=== PATIENT | female | born 1955 | race African-American/Black ===

== ENCOUNTER 2025-01-14 12:19 | Emergency (ER) | payer MEDICARE, MEDICAID, SELFPAY ==
[2025-01-14 12:23] VITALS: BP 140/94; PULSE 54; RESP 18; TEMP 36.8; O2SAT 100
--- NOTE | 2025-01-14 12:23 | ECG_ITS ---
Test Date: 2025-01-14 12:31:09 Measurements Intervals [place] Rate: 51 P: 38 [place]: 175 QRS: -30 QRSD: 161 T: 29 QT: 427 QTc: 394 Interpretive Statements SINUS BRADYCARDIA POSSIBLE LEFT ATRIAL ENLARGEMENT RIGHT BUNDLE BRANCH BLOCK POSSIBLE LEFT VENTRICULAR HYPERTROPHY T WAVE ABNORMALITY IN ANTEROLATERAL LEADS- CONSIDER ISCHEMIA BASELINE ARTIFACT- I, II, III, AVR, AVL, AVF, V4-V6 ABNORMAL ECG No previous ECG available for comparison Electronically Signed On 01-14-2025 14:43:15 CDT by Crispin Colby D.O.
--- NOTE | 2025-01-14 12:50 | ED_ITS ---
HPI - General Adult General Chief complaint: Urogenital-Female Stated complaint: Poss UTI, dizziness, abdominal pain, frequency Time Seen by Provider: 01/14/25 12:24 History of Present Illness HPI narrative: 69-year-old female present to the emergency department for evaluation for urinary symptoms that have been ongoing for the past few weeks. Patient does have some low abdominal tenderness to palpation, patient does describe burning with urination. Patient did is a now x2 at baseline and daughter is currently present states the patient is at her current baseline has no increased confusion. Patient denies any recent falls or injuries. Patient has no associated nausea vomiting or diarrhea. At time of evaluation patient is in no distress and is well-appearing. Related Data Allergies Allergy/AdvReac Type Severity Reaction Status Date / Time No Known Allergies Allergy Verified 01/14/25 12:35 Review of Systems 2 Review of Systems: All systems reviewed & are unremarkable except as noted in HPI and below Exam 2 Narrative: APPEARANCE: Well appearing, no pain, no distress, well-nourished. HEAD: normocephalic, atraumatic. EYES: PERRLA/EOMI, conjunctivae clear. NOSE: Normal no drainage EARS:TMS clear with good light reflex. THROAT: Pharynx clear, no exudate. NECK: Supple. No adenopathy, no masses. RESPIRATORY: Airway patent, respirations nonlabored. Clear to auscultation bilaterally, no rales, rhonchi, wheezing. CARDIOVASCULAR: Regular rate and rhythm without murmurs rubs or gallops. ABDOMINAL: Soft, nontender, nondistended, normal bowel sounds MUSCULOSKELETAL: Moves all extremities. Strength/ROM intact, No edema, No calf tenderness. NEURO: Alert. Cranial nerves II through XII intact. Grossly grossly SKIN: Warm, dry. Normal Color Course Vital Signs Vital signs: Vital Signs Temperature 98.2 F 01/14/25 12:23 Pulse Rate 54 L 01/14/25 12:23 Respiratory Rate 18 01/14/25 12:23 Blood Pressure 140/94 H 01/14/25 12:23 Pulse Oximetry 100 01/14/25 12:23 Oxygen Delivery Room Air 01/14/25 12:23 Temperature 97.5 F L 01/14/25 14:50 Pulse Rate 55 L 01/14/25 14:50 Respiratory Rate 21 H 01/14/25 14:50 Blood Pressure 144/84 H 01/14/25 14:50 Pulse Oximetry 100 01/14/25 14:50 Oxygen Delivery Room Air 01/14/25 12:23 Medical Decision Making [facility] Narrative Medical decision making narrative: 69-year-old female that is A&O x2 at baseline presents emergency department for evaluation for multiple weeks of urinary symptoms. Patient is currently afebrile with no leukocytosis hemoglobin of 15.5. Patient's creatinine is 1.5 with no previous kidney function on file. Patient's urine is consistent with a urinary tract infection. Patient had leukocyte esterase positive urine with high white blood cells and +4 bacteria. Patient was treated with 1 g of IV Rocephin and started on Keflex for home. On re-evaluation patient and family were updated the results of the workup with her comfortable the plan for discharge home. Family prefers the patient be discharged home. Differential Diagnosis Differential Diagnosis: UTI, viral etiology, colitis, diverticulitis Vital Signs Vital Signs: Vital Signs Temperature 98.2 F 01/14/25 12:23 Pulse Rate 54 L 01/14/25 12:23 Respiratory Rate 18 01/14/25 12:23 Blood Pressure 140/94 H 01/14/25 12:23 Pulse Oximetry 100 01/14/25 12:23 Oxygen Delivery Room Air 01/14/25 12:23 Temperature 97.5 F L 01/14/25 14:50 Pulse Rate 55 L 01/14/25 14:50 Respiratory Rate 21 H 01/14/25 14:50 Blood Pressure 144/84 H 01/14/25 14:50 Pulse Oximetry 100 01/14/25 14:50 Oxygen Delivery Room Air 01/14/25 12:23 Lab Data Lab results reviewed: Yes I reviewed the patient's lab results. 01/14/25 12:37 01/14/25 12:37 Labs: Lab Results 01/14/25 01/14/25 Range/Units 12:37 13:41 WBC 6.1 (4.5-10.0) K/mm3 RBC 5.44 H (4.2-5.4) M/mm3 Hgb 15.5 H (12.0-15.0) g/dL Hct 48.3 H (37.0-47.0) % MCV 88.8 (80-100) fl MCH 28.5 (26-34) pg MCHC 32.1 (32-36) g/dl RDW 13.1 (11.5-14.5) % Plt Count 86 L (150-375) k/mm3 MPV 12.4 H (7.4-10.4) fl Immature Gran % (Auto) 0.3 (0-0.5) % Neut % (Auto) 69.0 (45.5-73.1) % Lymph % (Auto) 21.1 (18.3-44.2) % [place] % (Auto) 5.8 (2.6-8.5) % Eos % (Auto) 3.0 (0-4.4) % Baso % (Auto) 0.8 (0.2-1.2) % Lymph # (Auto) 1.28 (0.9-3.2) K/mm3 [place] # (Auto) 0.4 (0.1-0.6) K/mm3 Eos # (Auto) 0.2 (0-0.3) K/mm3 Baso # (Auto) 0.1 (0.0-0.1) K/mm3 Abs Immat Gran (auto) 0.02 (0.00-0.031) K/mm3 Absolute Neuts (auto) 4.2 (1.3-6.7) K/mm3 Absolute Nucleated RBC 0.000 (0.0-0.012) K/mm3 Nucleated RBC % 0.0 (0.0-0.2) % % Immature Plt Fraction 9.5 (0.9-11.2) % Sodium 139 (137-145) mmol/L Potassium 4.2 (3.4-5.0) mmol/L Chloride 109 H (98-107) mmol/L Carbon Dioxide 22 (22-30) mmol/L Anion Gap 8 (4-12) mmol/L BUN 21 H (7-17) mg/dL Creatinine 1.58 H (0.7-1.0) mg/dL Estim Creat Clear Calc 35 ml/min Estimated GFR 32 L (59 - ) Glucose 107 (65-110) mg/dL Calcium 9.7 (8.4-10.2) mg/dL Total Bilirubin 0.7 (0.2-1.3) mg/dL AST 26 (14-36) U/L ALT 21 (6-35) U/L Alkaline Phosphatase 121 (38-126) U/L Total Protein 7.3 (6.3-8.2) g/dL Albumin 4.1 (3.5-5.1) g/dL Lipase 238 (23-300) U/L Urine Color Yellow (Yellow) Urine Appearance Cloudy H (Clear) Urine pH 7.5 (5.0-9.0) Ur Specific [place] 1.014 (1.001-1.035) Urine Protein Trace (Negative) mg/dL Urine Glucose (UA) 3+ H (Negative) mg/dL Urine Ketones Negative (Negative) mg/dL Ur Blood (Man) Negative (Negative) Urine Nitrate Negative (Negative) Urine Bilirubin Negative (Negative) Urine Urobilinogen 0.2 (<2.0) mg/dL Leukocyte Esterase Rfl 3+ H (Negative) KELSIE/UL Urine RBC 0-2 (0-2) /hpf Urine WBC 51-100 H (0-3) /hpf Ur Squamous Epith Cells Few (Few) /hpf Urine Bacteria 4+ H /hpf Urine Casts 0-2 Discharge Plan Discharge Clinical Impression: Urinary tract infection Patient Disposition: Home Condition: Stable Instructions: Antibiotic Form, Urinary Tract Infection in Women (ED) Additional Instructions: Antibiotic as directed until completed. Have close follow-up with your primary care physician. If you have any worsening symptoms then please call or return to the emergency department. Patient Language: Citizen Of [place] Prescriptions: New cephalexin 500 mg capsule 500 mg PO Q8H 7 Days Qty: 21 0RF Follow-up/Referrals: PHYSICIAN NOT ON STAFF,NONSTAFF [Non-Staff] -
[2025-01-14 12:51] LABS: Hematocrit 48.3 % (37.0-47.0); Hemoglobin 15.5 g/dL (12.0-15.0); Immature Granulocyte Percent A 0.3 % (0-0.5); Immature Platelet Fraction Pct 9.5 % (0.9-11.2); Lymphocytes Absolute Auto 1.28 K/mm3 (0.9-3.2); Mean Corpuscular HGB Conc 32.1 g/dl (32-36); Mean Corpuscular Hemoglobin 28.5 pg (26-34); Mean Corpuscular Volume 88.8 fl (80-100); Nucleated Red Blood Cells Absolute Auto 0.000 K/mm3 (0.0-0.012); Nucleated Red Blood Cells Perc 0.0 % (0.0-0.2); Platelet Count Result 86 k/mm3 (150-375); Red Blood Count 5.44 M/mm3 (4.2-5.4); White Blood Count 6.1 K/mm3 (4.5-10.0)
--- OUTSIDE RECORDS SUMMARY | 2025-01-14 12:59 | XMS_ITS | Clinical Summary ---
Author Organization [facility] Address [address] [place] [address] Phone Care Team Providers Care Rubber Cutter Name Role Phone Chandler Smith DO Unavailable [phone] Pura Madsen MD Primary Care Provider [phone] Allergies No known active allergies Medications aspirin 81 mg tablet TAKE 1 TABLET BY MOUTH EVERY DAY 90 tablet 02/24/2018 Active atorvastatin (LIPITOR) 20 mg tablet TAKE 1 TABLET BY MOUTH DAILY 30 tablet 2 02/24/2018 Active amLODIPine (NORVASC) 10 mg tablet Take 1 tablet (10 mg total) by mouth daily Active carvediloL (COREG) 12.5 mg tablet Take 0.5 tablets (6.25 mg total) by mouth 2 (two) times a day 60 tablet 02/27/2024 Active OLANZapine (ZyPREXA) 2.5 mg tablet Take 1 tablet (2.5 mg total) by mouth nightly 30 tablet 02/27/2024 Active OLANZapine (ZyPREXA) 2.5 mg tablet Take 1 tablet (2.5 mg total) by mouth every 8 (eight) hours as needed (agitation) 30 tablet 02/27/2024 Active Active Problems Problem Noted Date Diagnosed Date Moderate protein-calorie malnutrition 02/24/2024 Urinary tract infection in female 02/23/2024 Encephalomyopathy 02/23/2024 Hypertensive emergency 02/23/2024 Essential hypertension 11/12/2017 Overview (11/12/2017): Uncontrolled. Pt advised to take meds daily as rx'd. Clonidine 0.1mg given in office BP now much imporvd. Non-compliance 11/12/2017 Encounters Date Type Department Care Team Description 12/14/2024 Telephone [facility] [address] [facility] [address] [place] [address] Irene Smith from Last 3 Months Medical History Medical History Date Comments Hypertension Heart palpitations Family History Medical History Relation Name Comments No Known Problems Father No Known Problems Mother Relation Name Status Comments Father Mother Social History Tobacco Use Types Packs/Day Years Used Date Smoking Tobacco: Former Smokeless Tobacco: Never Comments:quit x 30 years ago Alcohol Use Standard Drinks/Week Comments No 0 (1 standard drink = 0.6 oz pur e alcohol) [facility] Utilities Answer Date Recorded In the past 12 months has [employer], gas, oil, or water [employer] threatened to shut off services in your home? Patient unable to answer 02/25/2024 Social Connection and Isolation Panel [NHANES] A nswer Date Recorded In a typical week, how many times do you talk on the phone with family, friends, or neighbors? Patient unable to answer 02/25/2024 How often do you get togethe r with friends or relatives? Patient unable to answer 02/25/2024 How often do you attend chur ch or restoration services? Patient unable to answer 02/25/2024 Do you belong to any clubs o r organizations such as episcopal groups, unions, fraternal or athletic groups, or school groups? Patient unable to answer 02/25/2024 How often do you attend meet ings of the clubs or organizations you belong to? Patient unable to answer 02/25/2024 Are you , , di vorced, , never , or living with a partner? Patient unable to answer 02/25/2024 Overall Financial Resource Strain (CARDIA) Answe r Date Recorded How hard is it for you to pa y for the very basics like food, housing, medical care, and heating? Patient unable to answer 02/25/2024 Hunger Vital Sign Answer Date Recorded Within the past 12 months, y ou worried that your food would run out before you got the money to buy more. Patient unable to answer 02/25/2024 Within the past 12 months, t he food you bought just didn't last and you didn't have money to get more. Patient unable to answer 02/25/2024 PRAPARE - Transportation Answer Date Re corded In the past 12 months, has l ack of transportation kept you from medical appointments or from getting medications? Patient unable to answer 02/25/2024 In the past 12 months, has l ack of transportation kept you from meetings, work, or from getting things needed for daily living? Patient unable to answer 02/25/2024 Housing Stability Vital Sign Answer Julio e Recorded In the last 12 months, was t here a time when you were not able to pay the mortgage or rent on time? Patient unable to answer 02/25/2024 Number of Times Moved in the Last Year Not on fi le 02/25/2024 At any time in the past 12 m [facility], were you homeless or living in a longterm (including now)? Patient unable to answer 02/25/2024 Personal Safety Answer Date Recorded Have you ever been in or are you currently in a harmful physical or emotional relationship or is someone making you feel afraid or unsafe? Denies 02/22/2024 Comments Unknown Sex and Gender Information Value Date Recorded Sex Assigned at Not on file Legal Sex Female 9:39 AM CDT Gender Identity Not on file Sexual Orientation Not on file Obstetrics History Last Filed Vital Signs Vital Sign Reading Time Taken Comments Blood Pressure 137/82 02/27/2024 10:53 AM CDT Pulse 61 02/27/2024 10:53 AM CDT Temperature 37.2 C (99 F) 02/27/2024 10:53 AM CDT Respiratory Rate 18 02/27/2024 10:5 3 AM CDT Oxygen Saturation 100% 02/27/2024 10: 53 AM CDT Inhaled Oxygen Concentration - - Weight 71.2 kg (156 lb 15.5 oz) 02/23/2024 4:13 PM CDT Height 172.7 cm (5' 7.99) 02/23/2024 4:13 PM CD T Body Mass Index 23.87 02/23/2024 4:13 PM CDT Plan of Treatment Health Maintenance Due Date Last Done Comments Colon Cancer Screening-Colonoscopy 1955 DTaP/Tdap/Td Vaccine (1 - Tdap) 1966 Hepatitis B Screening 1973 Pneumococcal vaccine 65+ (1 of 1 - PCV) 2005 Zoster Vaccine (1 of 2) 2005 Depression Screening 11/06/2018 11/06/2017, 11/07/19 18 Well Visit 65+ 2020 Influenza Vaccine (#1) 2025 Fall Risk Assessment 02/26/2025 02/27/2024, 11/07/19 18 Breast Cancer Screening-Mammogram 09/09/2025 09/09/2024, 09/09/2024, 08/18/2024, Additional history exists Osteoporosis Screening-Bone Density Scan 08/18/2026 08/18/2024 Hepatitis C Screening Completed 11/06/2017 Procedures Procedure Name Priority Date/Time Associated Diagnosis Comments HEPATITIS C ANTIBODY Routine 11/06/2017 1:29 PM CDT Encounter for hepatitis C screening test for low risk patient from Last 3 Months or Most Recently Relevant to Health Maintenance Results * Hepatitis C antibody (11/06/2017 1:29 PM CDT) Hep C Ab Negative Negative [facility] Blood specimen (specimen) 11/06/2017 1:29 PM CDT 11/06/2017 1:29 PM CDT Narrative [facility] - 11/06/2017 2:00 PM CDT Marlyn Edgar NP LAB MICROBIOLOGY - GENERAL ORDERABLES Final Result [facility] [id number] [place] [address] from Last 3 Months or Most Recently Relevant to Health Maintenance Insurance [facility] Advance Directives For more information, please contact: [phone] * Full Code (Latest Code Status on File) Date Activated Date Inactivated Comments 02/23/2024 4:08 AM 02/28/2024 1:43 AM Care Teams Rubber Cutter Relationship Specialty Start Date End Date Pura Madsen MD [address] [place] [address] PCP - General Family Medicine 10/24/24 Chandler Smith DO Family Medicine 12/02/22
--- OUTSIDE RECORDS SUMMARY | 2025-01-14 12:59 | XMS_ITS | Clinical Summary ---
Author Organization [facility] Address [address] [place] [address] Care Team Providers Care Boardinghouse Keeper Name Role Phone Pura Madsen MD Primary Care Provider Allergies No known active allergies Medications triamcinolone (KENALOG) 0.1 % cream 07/20/19 25 Active multi vitamin/minerals (THERA-M ENHANCED) tablet Take 1 tablet by mouth daily. Active carvedilol (COREG) 12.5 MG tabletIndications: Primary hypertension Take 1 tablet (12.5 mg total) by mouth 2 (two) times daily. 180 tablet 1 08/09/19 25 Active BLOOD PRESSURE CUFF, DME,Indications:Pr imary hypertension 1 Device by Does not apply route 2 (two) times a day. 1 Device 08/09/19 25 Active dapagliflozin (FARXIGA) 10 MG tabletIndications: Stage 3b chronic kidney disease (CMS/HCC) Take 1 tablet (10 mg total) by mouth daily. 90 tablet 1 09/07/19 25 Active atorvastatin (LIPITOR) 20 MG tabletIndications: Mixed hyperlipidemia Take 1 tablet (20 mg total) by mouth daily. 90 tablet 1 10/19/19 25 Active amLODIPine (NORVASC) 10 MG tabletIndications: Primary hypertension Take 1 tablet by mouth once daily 30 tablet 01/10/20 25 Active amLODIPine (NORVASC) 10 MG tabletIndications: Primary hypertension Take 1 tablet by mouth once daily 30 tablet 11/05/19 25 025 Discontinued Active Problems Problem Noted Date Diagnosed Date Stage 3b chronic kidney disease 08/09/2024 Thrombopenia 08/09/2024 Heart failure, unspecified H F chronicity, unspecified heart failure type ([facility]) 08/09/2024 Mixed hyperlipidemia 08/09/2024 Primary hypertension 08/09/2024 Encounters Date Type Department Care Team Description 12/30/2024 10:15 AM CDT - 12/30/2024 11:59 PM CDT Hospital Encounter [facility] [place] [address] Pura Madsen MD Witte, Lauren E, MASTER PILOT Discharge Disposition: Home or Self Care (Routine Discharge) 12/30/2024 Travel 12/27/2024 Telephone [facility] [place] [address] Kimberly Senior, MASTER PILOT Called To Cancel Office Appt. 12/23/2024 10:15 AM CDT - 12/23/2024 11:59 PM CDT Hospital Encounter [facility] [place] [address] Pura Madsen MD Damron, Alexis, MASTER PILOT Discharge Disposition: Home or Self Care (Routine Discharge) 12/23/2024 Travel 12/20/2024 10:15 AM CDT - 12/20/2024 11:59 PM CDT Hospital Encounter [facility] [place] [address] Pura Madsen MD Witte, Lauren E, MASTER PILOT Discharge Disposition: Home or Self Care (Routine Discharge) 12/20/2024 Travel 12/09/2024 1:30 PM CDT - 12/09/2024 11:59 PM CDT [facility] [place] [address] Pura Madsen MD Witte, Lauren E, MASTER PILOT Discharge Disposition: Home or Self Care (Routine Discharge) 12/09/2024 Travel 12/06/2024 1:28 PM CDT - 12/06/2024 11:59 PM CDT [place] [address] Pura Madsen MD Lewis, Molly A, MASTER PILOT Discharge Disposition: Home or Self Care (Routine Discharge) 12/06/2024 Travel 12/02/2024 1:30 PM CDT - 12/02/2024 11:59 PM CDT Hospital Encounter [facility] [place] [address] Pura Madsen MD Meyer, Debra S, MASTER PILOT Discharge Disposition: Home or Self Care (Routine Discharge) 12/02/2024 Travel 12/01/2024 Scan [employer] [facility] Scanned[facility] 11/29/2024 1:30 PM CDT - 11/29/2024 11:59 PM CDT [place] [address] Pura Madsen MD Meyer, Debra S, MASTER PILOT Discharge Disposition: Home or Self Care (Routine Discharge) 11/29/2024 Travel 11/24/2024 12:45 PM CDT - 11/24/2024 11:59 PM CDT [place] [address] Pura Madsen MD Myers, Traci R, MASTER PILOT Discharge Disposition: Home or Self Care (Routine Discharge) 11/24/2024 Travel 11/22/2024 10:15 AM CDT - 11/22/2024 11:59 PM CDT [place] [address] Pura Madsen MD Lewis, Molly A, MASTER PILOT Discharge Disposition: Home or Self Care (Routine Discharge) 11/22/2024 Scan [facility] [employer] [facility] Scanned, [facility] 11/22/2024 Travel 11/18/2024 3:36 PM CDT - 11/18/2024 11:59 PM CDT Hospital Encounter [facility] [place] [place] [address] Pura Madsen MD Haas, Matthew R, PT Discharge Disposition: Home or Self Care (Routine Discharge) 11/18/2024 Travel 11/17/2024 [facility] 11/11/2024 [facility] 10/27/[address] [address] Pura Madsen MD Surgical Clearance 10/18/2024 1:20 PM CDT Office Visit [address] [address] Pura Madsen MD Surgical Clearance 10/18/2024 Travel 10/14/2024 3:44 PM CDT - 10/14/2024 11:59 PM CDT Hospital Encounter [facility] [place] [address] Pura Madsen MD Haas, Matthew R, PT Discharge Disposition: Home or Self Care (Routine Discharge) 10/14/2024 Travel from Last 3 Months Family History Medical History Relation Comments Kidney Disease Brother Stroke Brother Cancer Mother Breast Cancer Sister Cancer Sister Hypertension Sister Relation Status Comments Brother Alive Mother Sister Social History Tobacco Use Types Packs/Day Years Used Date Smoking Tobacco: Never Passive Smoke Exposure: Never Smokeless Tobacco: Never Tobacco Cessation:Counseling Given: No Alcohol Use Standard Drinks/Week Comments Not Currently 0 (1 standard drink = 0.6 oz pur e alcohol) PHQ-2 Answer Date Recorded Patient Health Questionnaire-2 Score 0 09/06/2024 Comments No Sex and Gender Information Value Date Recorded Sex Assigned at Female 06/29/2024 2:39 PM NATURAL GAS BASIS TRADER Legal Sex Female 2:34 PM NATURAL GAS BASIS TRADER Gender Identity Not on file Sexual Orientation Not on file Last Filed Vital Signs Vital Sign Reading Time Taken Comments Blood Pressure 138/88 10/18/2024 1:37 PM CDT Pulse 60 09/06/2024 1:44 PM CDT Temperature 36.6 C (97.8 F) 09/06/2024 1:44 PM CDT Respiratory Rate 16 09/06/2024 1:44 PM CDT Oxygen Saturation 97% 09/06/2024 1:44 PM CDT Inhaled Oxygen Concentration - - Weight 84.8 kg (187 lb) 09/06/2024 1:44 PM CDT Height 172.7 cm (5' 8) 09/06/2024 1:44 PM CDT Body Mass Index 28.43 09/06/2024 1:44 PM CDT Plan of Treatment Upcoming Encounters Date Type Department Care Team (Late st Contact Info) Description 03/07/2025 1:40 PM CDT Office Visit [facility] [address] [place] [address] Pura Madsen MD [address] [place] [address] Health Maintenance Due Date Last Done Comments DTaP, Tdap and Td Vaccines ( 1 - Tdap) 1974 Pneumococcal Vaccine: 50+ Years (1 of 2 - PCV) 1974 COVID-19 Vaccine (1 - 2023-2 5 season) 2025 Postponed from 02/13 (Patient Refused) RSV Immunization or 60+ Years (1 - Risk 60-74 years 1-dose series) 07/26/2025 Postponed from 07/17 (Patient Refused) Zoster Vaccines (1 of 2) 07/26/2025 Pos tponed from 2005 (Patient Refused) Mammogram Screening 09/09/2026 09/09/2024, 08/18/2024 Colorectal Cancer Screening FIT-DNA (3 Years) 2027 2024, 2024 Hepatitis C Completed 08/01/2024 Dexa Scan (General) Completed 08/18/2024 PHQ-2 (Physician [place]) Completed 10/18/2024 Meningococcal B Vaccine Aged Out No l onger eligible based on patient's age to complete this topic Meningococcal Vaccine Aged Out No wojciech darryn eligible based on patient's age to complete this topic RSV Immunizations Under 20 Months Aged Out No longer eligible b ased on patient's age to complete this topic Procedures Procedure Name Priority Date/Time Associated Diagnosis Comments MG DIAG W YAW BILAT DIGI Routine 09/09/2024 10:39 AM CDT Abnormal mammogram BONE DENSITY/DEXA Routine 08/18/2024 12: 44 PM NATURAL GAS BASIS TRADER Osteoporosis screening COLOGUARD (EXACT SCIENCE) Routine 2024 10:30 PM NATURAL GAS BASIS TRADER Colon cancer screening HEPATITIS C ANTIBODY Routine 08/01/2024 3:35 PM NATURAL GAS BASIS TRADER Encounter for hepatitis C screening test for low risk patient from Last 3 Months or Most Recently Relevant to Health Maintenance Results * MG DIAG W YAW BILAT DIGI (09/09/2024 10:39 AM CDT) Anatomical Region Laterality Modality Breast Bilateral Mammography 09/09/2024 11:5 3 AM CDT Impressions 09/09/2024 11:59 AM CDT IMPRESSION: No mammographic evidence of malignancy within either breast. Effacing island of fibroglandular tissue within the left breast. Subcentimeter intramammary lymph nodes within the right breast corresponding with reniform masses on mammography. RECOMMENDATION: Routine ScreeningBilateral Findings, impression, and recommendation were discussed with the patient and patient's sister immediately following exam completion. OVERALL IMAGING ASSESSMENT: ACR BI-RADS 2 - BENIGN FINDING(S). Ordered By: PURA MADSEN Interpreted By: Ventura Ramon, 09/09/2024 11:53 AM Narrative 09/09/2024 11:59 AM CDT [facility] [address] [place] [address] EXAMINATION: MG DIAG W YAW BILAT DIGI, US BREAST RT BIRAD LTD [id number] INDICATIONS: Abnormal mammogram TECHNIQUE: Digital full field true lateral and spot compression MLO views of the breast bilaterally and spot compression CC views of the screening mammography bilaterally to include 3-D Tomosynthesis technique. This study was read with the assistance of a computer-aided detection system. Targeted grayscale and color Doppler ultrasound imaging of the right breast HISTORY: Patient presents for diagnostic evaluation of indeterminate findings on screening mammography. No current breast complaint. Family history of breast cancer in sister at age 64. No personal history of breast cancer or prior breast biopsy. COMPARISON: Baseline mammography of 08/18/2024. TISSUE DENSITY: There are scattered areas of fibroglandular density. FINDINGS: Mammogram: Circumscribed ovoid subcentimeter masses persist at the upper outer right breast measuring approximately 6 mm anteriorly and 8 mm posteriorly. Each demonstrates a reniform morphology with subtle fat density hilar notch. MLO view asymmetry at the lower posterior left breast effaces with spot compression. No underlying persistent asymmetry, mass, architectural distortion. Few scattered typically benign round calcifications . No suspicious microcalcification within either breast. No axillary adenopathy. Sonogram: Targeted sonographic evaluation of the outer slightly upper anterior right breast demonstrates a circumscribed hypoechoic reniform 5 mm intramammary lymph node at the 9:30-10:00 axis 4.5 cm from the nipple. This demonstrates parallel orientation, subtle increased through transmission, and central pedicular vascular flow and corresponds positively with reniform mass within the anterior upper outer right breast on mammography. Targeted sonographic evaluation of the outer slightly upper posterior right breast demonstrates a circumscribed ovoid hypoechoic reniform 7 mm intramammary lymph node with parallel orientation, preserved central hilar echogenicity, and central vascular pedicle. This corresponds positively with reniform mass on mammography within the posterior right breast. No suspicious mass or abnormal shadowing within the visualized right breast. Pura Madsen MD MAMMO Final Result * BONE DENSITY/DEXA (08/18/2024 12:44 PM NATURAL GAS BASIS TRADER) Anatomical Region Laterality Modality Bone Mammography 08/18/2024 2:12 PM NATURAL GAS BASIS TRADER Impressions 08/18/2024 2:13 PM NATURAL GAS BASIS TRADER IMPRESSION: WHO Classification: Osteopenia. RECOMMENDATIONS: All patients should ensure an adequate intake of dietary calcium and vitamin D. The NOF recommend adults under the age of 50 need 1000 mg of calcium and 400-800 IU of vitamin D daily. Effective therapy for the prevention and treatment of osteoporosis include bisphosphonates. FOLLOW-UP: People with diagnosed cases of osteoporosis or at high risk for fracture should have regular bone mineral density test. For patients eligible for Medicare, routine testing is allowed once every 2 years. Testing frequency can be increased to one year for patients who have rapidly progressing disease, those who are receiving or discontinuing medical therapy to restore bone mass, or have additional risk factors. Ordered By: PURA MADSEN Interpreted By: Ventura Ramon, 08/18/2024 2:12 PM Narrative 08/18/2024 2:13 PM NATURAL GAS BASIS TRADER [facility] [address] [place] [address] EXAMINATION: BONE DENSITY/DEXA INDICATIONS: Encounter for screening for osteoporosis COMPARISON: None TECHNIQUE: DEXA bone mineral density evaluation was performed in the AP projection over the lumbar spine and both hips utilizing standard imaging techniques. FINDINGS: The BMD measured at the AP spine L1-L4 is 0.902 g/cm? with a T-score of -1.3. The BMD measured at the left femoral neck is 0.793 g/cm? with a T-score of -0.5. The BMD measured at the left hip is 0.807 g/cm? with a T-score of -1.1. The BMD measured at the right femoral neck is 0.827 g/cm? with a T-score of - 0.2. The BMD measured at the right hip is 0.840 g/cm? with a T-score of -0.8. FRAX 10-year fracture risk: Major Osteoporotic Fracture: 3.5% Hip Fracture: 0.2% Procedure Note Ventura Ramon MD - 08/18/2024 [facility] [address] [place] [address] EXAMINATION: BONE DENSITY/DEXA INDICATIONS: Encounter for screening for osteoporosis COMPARISON: None TECHNIQUE: DEXA bone mineral density evaluation was performed in the APprojection over the lumbar spine and both hips utilizing standard imagingtechniques. FINDINGS: The BMD measured at the AP spine L1-L4 is 0.902 g/cm? with a T-score of-1.3. The BMD measured at the left femoral neck is 0.793 g/cm? with a T-score of-0.5. The BMD measured at the left hip is 0.807 g/cm? with a T-score of -1.1. The BMD measured at the right femoral neck is 0.827 g/cm? with a T-scoreof -0.2. The BMD measured at the right hip is 0.840 g/cm? with a T-score of -0.8. FRAX 10-year fracture risk: Major Osteoporotic Fracture: 3.5% Hip Fracture: 0.2% IMPRESSION: WHO Classification: Osteopenia. RECOMMENDATIONS: All patients should ensure an adequate intake of dietary calcium andvitamin D. The NOF recommend adults under the age of 50 need 1000 mg ofcalcium and 400-800 IU of vitamin D daily. Effective therapy for theprevention and treatment of osteoporosis include bisphosphonates. FOLLOW-UP: People with diagnosed cases of osteoporosis or at high risk for fractureshould have regular bone mineral density test. For patients eligible forMedicare, routine testing is allowed once every 2 years. Testing frequencycan be increased to one year for patients who have rapidly progressingdisease, those who are receiving or discontinuing medical therapy torestore bone mass, or have additional risk factors. Ordered By: PURA MADSEN Interpreted By: Ventura Ramon, 08/18/2024 2:12 PM us Pura Madsen MD DEXA Final Result * JESSE ([employer]) (2024 10:30 PM NATURAL GAS BASIS TRADER) COLOGKATE RESULT Negative Negative [employer] (CLIA #:[id number]) Comment: NEGATIVE TEST RESULT. A negative Cologuard result indicates a low likelihood that a colorectal cancer (CRC) or advanced adenoma (adenomatous polyps with more advanced pre-malignant features) is present. The chance that a person with a negative Cologuard test has a colorectal cancer is less than 1 in 1500 (negative predictive value >99.9%) or has an advanced adenoma is less than 5.3% (negative predictive value 94.7%). These data are based on a prospective cross-sectional study of 10,000 individuals at average risk for colorectal cancer who were screened with both Cologuard and colonoscopy. (Dora Wilson et al, N Engl J Med 2014;370(14):4436-6581) The normal value (reference range) for this assay is negative. COLOGUARD RE-SCREENING RECOMMENDATION: Periodic colorectal cancer screening is an important part of preventive healthcare for asymptomatic individuals at average risk for colorectal cancer. Following a negative Cologuard result, the [place] Cancer Society and U.S. Multi-Society Task Force screening guidelines recommend a Cologuard re-screening interval of 3 years. References: [place] Cancer Society Guideline for Colorectal Cancer Screening: https://www.cancer.org/cancer/bnfbl-bgxrna-jvvbky/oqsbkjjio-vsivakjsx-azokecz/ac s-rec ommendations.html.; Dillon WARREN, Joseph KLEIN, Mary AcostaK, Colorectal Cancer Screening: Recommendations for Physicians and Patients from the U.S. Multi-Society Task Force on Colorectal Cancer Screening , Am J Gastroenterology 2017; 112:9289-1950. TEST DESCRIPTION: Composite algorithmic analysis of stool DNA-biomarkers with hemoglobin immunoassay. Quantitative values of individual biomarkers are not reportable and are not associated with individual biomarker result reference ranges. Cologuard is intended for colorectal cancer screening of adults of either sex, 45 years or older, who are at average-risk for colorectal cancer (CRC). Cologuard has been approved for use by the U.S. FDA. The performance of Cologuard was established in a cross sectional study of average-risk adults aged 50-84. Cologuard performance in patients ages 45 to 49 years was estimated by sub-group analysis of near-age groups. Colonoscopies performed for a positive result may find as the most clinically significant lesion: colorectal cancer [4.0%], advanced adenoma (including sessile serrated polyps greater than or equal to 1cm diameter) [20%] or non- advanced adenoma [31%]; or no colorectal neoplasia [45%]. These estimates are derived from a prospective cross-sectional screening study of 10,000 individuals at average risk for colorectal cancer who were screened with both Cologuard and colonoscopy. (Dora Ron al, N Engl J Med 2014;370(14):7604-2466.) Cologuard may produce a false negative or false positive result (no colorectal cancer or precancerous polyp present at colonoscopy follow up). A negative Cologuard test result does not guarantee the absence of CRC or advanced adenoma (pre-cancer). The current Cologuard screening interval is every 3 years. (Australian Cancer Society and U.S. Multi-Society Task Force). Cologuard performance data in a 10,000 patient pivotal study using colonoscopy as the reference method can be accessed at the following location: www.[employer]/results. Additional description of the Cologuard test process, warnings and precautions can be found at www.cologBernard Healthrd.com. STOOL STOOL SPECIMEN / Unknown 2024 10:30 PM NATURAL GAS BASIS TRADER 08/10/2024 10:03 AM NATURAL GAS BASIS TRADER Pura Madsen MD BODY FLUIDS AND STOOLS ORDERABLE S Final Result [facility] ([employer] [facility]) [address] [place] [address], [employer] (CLIA #:[id number]) [address] [place] [address] * HEPATITIS C ANTIBODY (08/01/2024 3:35 PM NATURAL GAS BASIS TRADER) HEPATITIS C AB NON-REACTI VE NON-REACTI VE 08/01/2024 5:02 PM NATURAL GAS BASIS TRADER [facility] 08/01/2024 3:35 PM NATURAL GAS BASIS TRADER us Pura Madsen MD LABORATORY Final Result [facility] [address] [place] [address], [place] [phone] from Last 3 Months or Most Recently Relevant to Health Maintenance Insurance [employer] Care Teams Boardinghouse Keeper Relationship Specialty Start Date End Date Pura Madsen MD [address] [place] [address] PCP - General FAMILY PRACTICE 07/26/24
--- OUTSIDE RECORDS SUMMARY | 2025-01-14 12:59 | XMS_ITS | Encounter Summary ---
Author Organization [facility] Address [address] [place] [address] Phone Care Team Providers Care Copper Plate Lithographer Name Role Phone Marlyn Edgar NP Primary Care Provider Chandler Smith DO Primary Care Provider Chandler Smith DO Unavailable [phone] Pura Madsen MD Primary Care Provider [phone] Encounter Details Date Type Department Care Team (Late st Contact Info) Description 11/06/2017 Orders Only [facility] ProviderKinza MD [address] [id number] Social History Tobacco Use Types Packs/Day Years Used Date Smoking Tobacco: Former Smokeless Tobacco: Never Comments:quit x 30 years ago Alcohol Use Standard Drinks/Week Comments No 0 (1 standard drink = 0.6 oz pur e alcohol) Comments Unknown Sex and Gender Information Value Date Recorded Sex Assigned at Not on file Legal Sex Female 9:39 AM CDT Gender Identity Not on file Sexual Orientation Not on file documented as of this encounter Plan of Treatment Not on file documented as of this encounter Procedures Procedure Name Priority Date/Time Associated Diagnosis Comments DISCHARGE LABORATORY CUMULATIVE REPORT 11/06/2017 12:00 AM CDT documented in this encounter Results * DISCHARGE LABORATORY CUMULATIVE REPORT (11/06/2017 12:00 AM CDT) Narrative 11/06/2017 12:00 AM CDT Ordered by an unspecified provider. us Historical Provider LAB BLOOD ORDERABLES Alva l Result documented in this encounter Visit Diagnoses Not on filedocumented in this encounter Additional Health Concerns Infection Onset Date Last Indicated Resolved Time COVID: Suspected 02/22/2024 02/22/2024 02/23/2024 12:34 AM CDT documented as of this encounter Care Teams Copper Plate Lithographer Relationship Specialty Start Date End Date Marlyn Edgar NP PCP - General Family Medicine 11/05/17 12/01/22 Chandler Smith DO PCP - General Family Medicine 12/02/22 10/23/24 Pura Madsen MD [address] [place] [address] PCP - General Family Medicine 10/24/24 Chandler Smith DO Family Medicine 12/02/22 documented as of this encounter
--- OUTSIDE RECORDS SUMMARY | 2025-01-14 12:59 | XMS_ITS | Clinical Summary ---
Author Organization [facility] Address [address], [facility] [address] [place] [address] Phone Care Team Providers Care Ordinary Seaman Name Role Phone Pura Madsen MD Primary Care Provider [phone] Simona Longoria MD Unavailable Allergies No known active allergies Medications carvedilol (COREG) 12.5 MG Tablet Take 12.5 mg by mouth. 08/09/2024 Active Dapagliflozin Propanediol (FARXIGA) 10 MG Tablet Take 10 mg by mouth daily. 08/09/2024 Active atorvastatin (LIPITOR) 20 MG Tablet Take 20 mg by mouth daily. 08/17/2024 Active amLODIPine (NORVASC) 10 MG Tablet Take 10 mg by mouth daily. 08/17/2024 Active Active Problems Problem Noted Date Diagnosed Date Hypertension Encounters Date Type Department Care Team Description 11/22/2024 1:15 PM CDT Office Visit [facility] [address] [address] Nicole Cespedes, CAPSULE FILLER, CRYSTALLOGRAPHER Thrombocytopenia (HCC) (Primary Dx); Mass of upper outer quadrant of right breast; Positive LISETH (antinuclear antibody); Elevated alkaline phosphatase level 11/22/2024 1:00 PM CDT Lab [facility] [address] [phone] Lab, Cc Angelinaairam Thrombocytopenia (HCC); Mass of upper outer quadrant of right breast 11/22/2024 Travel from Last 3 Months Family History Medical History Relation Name Comments Cancer Mother Relation Name Status Comments Mother Social History Tobacco Use Types Packs/Day Years Used Date Smoking Tobacco: Never Smokeless Tobacco: Never Tobacco Cessation:Counseling Given: Not Answered Alcohol Use Standard Drinks/Week Comments Not Currently 0 (1 standard drink = 0.6 oz pur e alcohol) Comments Unknown Sex and Gender Information Value Date Recorded Sex Assigned at Not on file 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 Gender Identity Not on file Sexual Orientation Not on file Last Filed Vital Signs Vital Sign Reading Time Taken Comments Blood Pressure 122/84 11/22/2024 1:10 PM CDT Pulse 58 11/22/2024 1:10 PM CDT Temperature 36.8 C (98.2 F) 11/22/2024 1:10 PM CDT Respiratory Rate 18 11/22/2024 1:10 PM CDT Oxygen Saturation 99% 11/22/2024 1:10 PM CDT Inhaled Oxygen Concentration - - Weight 88.5 kg (195 lb) 11/22/2024 1:10 PM CDT Height 180.3 cm (5' 11) 11/22/2024 1:10 PM CDT Body Mass Index 27.2 11/22/2024 1:10 PM CDT Plan of Treatment Upcoming Encounters Date Type Department Care Team (Late st Contact Info) Description 02/21/2025 1:00 PM CDT Lab [facility] [address] [id number] Lab, Cc [place] 02/21/2025 1:15 PM CDT Office Visit [facility] [address] [phone] Simona Longoria MD [address] [place] [address] Health Maintenance Due Date Last Done Comments TdaP Immunization 1955 Cologuard 2000 Colonoscopy 2000 Colorectal Cancer Screening 2000 Immunochemical Fecal Occult Blood 2000 Pneumococcal Immunization (50+ years) (1 of 1 - PCV) 2005 Zoster Immunization (1 of 2) 2005 Respiratory Syncytial Virus (RSV) Immunization (Adult) (1 - Risk 60-74 years 1-dose series) 2015 SARS-COV-2 Immunization ( - season) 2024 Influenza Immunization (#1) 2025 Mammogram 09/09/2025 09/09/2024, 08/14, 08/18/2024, Additional history exists DEXA Bone Density 08/18/2026 08/18/2024 Hepatitis C Virus (HCV) Screening Completed 08/01/2024 Hepatitis B Immunization Aged Out No longer eligible based on patient's age to complete this topic Human Papillomavirus (HPV) Immunization Aged Out No longer eligible based on patient's age to complete this topic Meningococcal Immunization (ACWY) Aged Out No longer eligible based on patient's age to complete this topic Rotavirus Immunization Aged Out No lo nger eligible based on patient's age to complete this topic Procedures Procedure Name Priority Date/Time Associated Diagnosis Comments CBC WITH AUTO DIFF OH Routine 11/22/2024 12:58 PM CDT CMP (COMPREHENSIVE METABOLIC PANEL) Routine 11/22/2024 12:58 PM CDT Thrombocytopenia (HCC) Mass of upper outer quadrant of right breast from Last 3 Months Results * (ABNORMAL) CBC WITH AUTO DIFF [place] (11/22/2024 12:58 PM CDT) WBC 6.7 4.0 - 10.0 10*3/uL [facility] HGB 14.6 11.2 - 15.7 g/dL [facility] HCT 45.2(H) 34.1 - 44.9 % [facility] PLT 103(L) 163 - 369 10*3/uL [facility] MPV 12.3 9.4 - 12.4 fL [facility] DOG INSTRUCTOR [facility] RBC 4.93 3.93 - 5.22 10*6/uL [facility] MCV 92 79 - 95 fL [facility]IDE DOG INSTRUCTOR [facility] MCH 29.6 25.6 - 32.2 pg [facility] GUIDE DOG INSTRUCTOR [facility] MCHC 32.3 32.2 - 36.5 g/dL [facility] DOG INSTRUCTOR [facility] RDW 13.6 11.6 - 14.4 % [facility]G INSTRUCTOR [facility] Neutrophils % 69.9(H) 36.0 - 66.0 % [facility]G INSTRUCTOR [facility] Lymphocytes % 18.9(L) 19.0 - 40.0 % [facility] DOG INSTRUCTOR [facility] Monocytes % 6.5 4.1 - 12.1 % [facility] DOG INSTRUCTOR [facility] Eosinophils % 3.5 0.0 - 3.5 % [facility]IDE DOG INSTRUCTOR [facility] Basophils % 0.9 0.0 - 1.0 % [facility] Absolute Neutrophils 4.7 1.4 - 6.6 10*3/uL [facility] Absolute Lymphocytes 1.3 0.8 - 4.0 10*3/uL [facility] Absolute Monocytes 0.4 0.2 - 1.2 10*3/uL [facility] Absolute Eosinophils 0.2 0.0 - 0.4 10*3/uL [facility] Absolute Basophils 0.1 0.0 - 0.1 10*3/uL [facility] 11/22/2024 12:5 8 PM CDT Simona Longoria MD LAB SEND OUTS Final Result [facility] GUIDE DOG INSTRUCTOR [facility] Sharif Meza [address] [phone] * (ABNORMAL) CMP (COMPREHENSIVE METABOLIC PANEL) (11/22/2024 12:58 PM CDT) Glucose 91 70 - 105 mg/dL [facility] Blood Urea Nitrogen 31(H) 7 - 25 mg/dL [facility] Creatinine 1.7(H) 0.6 - 1.2 mg/dL [facility] Sodium 141 136 - 145 mEq/L [facility] Potassium 4.4 3.5 - 5.1 mEq/L [facility] Chloride 108(H) 98 - 107 mEq/L [facility] Bicarbonate 25 21 - 31 mEq/L [facility] Total Bilirubin 0.5 0.3 - 1.0 mg/dL [facility] Alk. Phosphatase 132(H) 34 - 104 U/L [facility] Aspartate Aminotransferase 15 13 - 39 U/L [facility] Alanine Aminotransferase 19 7 - 52 U/L [facility] Total Protein 7.2 6.4 - 8.9 g/dL [facility] Albumin 4.3 3.5 - 5.7 g/dL [facility] Calcium 9.4 8.6 - 10.3 mg/dL [facility] Anion Gap 12.4 7.0 - 15.0 mEq/L [facility] Globulin 2.9 2.0 - 3.5 g/dL [facility] EGFR 32(L) >60 ml/min/1. 73m2 [facility] Comment: This eGFR is calculated using 2020 CKD-EPI Creatinine equation without race modifier based on the NKF-ASN task force recommendations Equation: vZXN=543*min(SCr/k,1)a*max(SCr/k,1)-1.200*0.9938Age*1.012 (if female), where SCr is serum creatinine, k is 0.7 for females and 0.9 for males, and a is -0.241 for females and -0.302 for males Blood 11/22/2024 12:5 8 PM CDT Narrative [facility] - 11/22/2024 2:13 PM CDT Release to patient->Immediate IS THE PATIENT REQUIRED TO BE FASTING FOR 8 HOURS?->No us Simona Longoria MD CHEMISTRY ORDERABLES Final Resul t [facility]IDE DOG INSTRUCTOR [facility] [place] [address], [place] [phone] from Last 3 Months Insurance MEDICAID [employer] Care Teams Ordinary Seaman Relationship Specialty Start Date End Date Pura Madsen MD [address] [place] [address] PCP - General Family Medicine 08/22/24 Simona Longoria MD [address] [place] [address] Consulting Physician Oncology 08/22/24
--- OUTSIDE RECORDS SUMMARY | 2025-01-14 12:59 | XMS_ITS | Referral Summary ---
Author Organization [facility] Address [address] [place] [address] Phone Care Team Providers Care Corporate Treasurer Name Role Phone Chandler Smith DO Unavailable Pura Madsen MD Primary Care Provider [phone] Encounters Date Type Department Care Team Description 12/14/2024 Telephone [facility] [address] Outpatient Health 4th Floor [address] [place] [address] Irene Smith from Last 3 Months Allergies No known active allergies Medications aspirin [...] office BP now much imporvd. Non-compliance 11/12/2017 Social History Tobacco Use Types Packs/Day Years Used Date Smoking Tobacco: Former Smokeless Tobacco: Never Comments:quit x 30 years ago Alcohol Use Standard Drinks/Week Comments No 0 (1 standard drink = 0.6 oz pur e alcohol) [facility] Utilities Answer Date Recorded In the past 12 months has e [employer], gas, oil, or water [employer] threatened to shut off services in your [...] often do you attend chur ch or muslim services? Patient unable to answer 02/25/2024 Do you belong to any clubs o r organizations such as jainism groups, unions, fraternal or athletic groups, or [...] any time in the past 12 m [facility], were you homeless or living in a senior living (including now)? Patient unable to answer 02/25/2024 [...] 02/23/2024 4:13 PM CDT Plan of Treatment Not on file Procedures Procedure Name Priority Date/Time Associated Diagnosis Comments HEPATITIS C ANTIBODY Routine 11/06/2017 1:29 PM CDT Encounter for hepatitis C screening test for low risk patient from Last 3 Months or Most Recently Relevant to Health Maintenance Results * Hepatitis C antibody (11/06/2017 1:29 PM CDT) Hep C Ab Negative Negative [facility] Blood specimen (specimen) 11/06/2017 1:29 PM CDT 11/06/2017 1:29 PM CDT Narrative [facility] - 11/06/2017 2:00 PM CDT Marlyn Edgar NP LAB MICROBIOLOGY - GENERAL ORDERABLES Final Result [facility] [id number] Department [place] [address] from Last 3 Months or Most Recently Relevant to Health Maintenance Insurance [facility] Advance Directives For more information, please contact: [phone] * Full Code (Latest Code Status on File) Date Activated Date Inactivated Comments 02/23/2024 4:08 AM 02/28/2024 1:43 AM Care Teams Corporate Treasurer Relationship Specialty Start Date End Date Pura Madsen MD [address] [place] [address] PCP - General Family Medicine 10/24/24 Chandler Smith DO Family Medicine 12/02/22
[2025-01-14 13:07] LABS: Alanine Aminotransferase 21 U/L (6-35); Albumin Level 4.1 g/dL (3.5-5.1); Alkaline Phosphatase 121 U/L (38-126); Anion Gap 8 mmol/L (4-12); Aspartate Amino Transferase 26 U/L (14-36); Bilirubin,Total 0.7 mg/dL (0.2-1.3); Blood Urea Nitrogen 21 mg/dL (7-17); Calcium 9.7 mg/dL (8.4-10.2); Carbon Dioxide 22 mmol/L (22-30); Chloride 109 mmol/L (98-107); Estimated CRCL calculation 35 ml/min; Estimated Glomerular Filt Rate 32; Glucose 107 mg/dL (65-110); Lipase 238 U/L (23-300); Potassium 4.2 mmol/L (3.4-5.0); Sodium 139 mmol/L (137-145); Total Protein 7.3 g/dL (6.3-8.2)
[2025-01-14 13:43] VITALS: BP 141/85; PULSE 50; RESP 17; O2SAT 100
[2025-01-14 13:53] LABS: Add Urine Microscopic? YES; Appearance Urine Cloudy (Clear); Glucose Urine UA 3+ mg/dL (Negative); Leukocyte Esterase Ur 3+ LEU/UL (Negative); Nitrate Urine Negative (Negative); Non Pathogenic Casts 0-2; Specific Grav Ur 1.014 (1.001-1.035)
[2025-01-14 14:21] VITALS: BP 138/86; PULSE 55; RESP 24; O2SAT 100
[2025-01-14] MEDS: cefTRIAXone 1 GM in SODIUM CHLORIDE 0.9% IV 50 ML 100 ML IVPB (14:21)
[2025-01-14 14:50] VITALS: BP 144/84; PULSE 55; RESP 21; TEMP 36.4; O2SAT 100
== END 2025-01-14 14:52 | disposition home or self-care (01) ==
PROVIDERS: Emergency Provider Emergency Medicine
DX: N39.0 Urinary tract infection, site not specified (principal); R00.1 Bradycardia, unspecified; I45.10 Unspecified right bundle-branch block; R94.31 Abnormal electrocardiogram [ECG] [EKG]
CPT/HCPCS: 36415; 80053; 81001; 83690; 85025; 85055; 87086; 93005; 96365; 99284; J0696

== ENCOUNTER 2025-01-21 14:14 | Inpatient (IN) | payer MEDICARE, MEDICAID, SELFPAY ==
[2025-01-21] VITALS (42 sets, daily range): BP systolic 139–162; BP diastolic 86–103; PULSE 47–84; RESP 11–27; TEMP 36.7–36.9; O2SAT 98–100; BMI 26.9
--- NOTE | ~2025-01-21 | US_ITS ---
EXAMINATION: US thyroid DATE: 01/24/2025 15:01 INDICATION: Right thyroid enlargement TECHNIQUE: Multiple ultrasound images of the thyroid were obtained. COMPARISON: None. FINDINGS: The right thyroid lobe measures 6.5 x 2.8 x 3.3 cm. The left thyroid lobe measures 5.7 x 2.2 x 1.9 c m. Right isthmus measures 9 mm in thickness. 4.2 cm solid wider than tall isoechoic nodule with inter nal coarse shadowing calcifications. There is a 1.5 cm nodule with coarse shadowing calcification and lobular margins along the cephalad margin of the previous noted mass. The shadowing obscures the reg ion between the calcification and the underlying larger mass. It is unclear whether this represents a a portion of the larger mass which would then be categorized as TI RADS 5 (TI-RADS 5, highly suspici ous , FNA if >=1.0 cm, annual followup is >0.5 cm) or a separate TI-RADS 5 nodule along side the larg er mass if independent masses the larger mass which would then be designated as the TI-RADS 4. Finall y there is a 1.1 cm solid hypoechoic nodule with smooth margins and without echogenic foci at the sup erior right thyroid (TI-RADS 4, moderately suspicious , FNA if >=1.5 cm, annual followup is >=1 cm). There are a also a few subcentimeter TI RADS 1 cystic nodules in both the left and right thyroid lobe s. IMPRESSION: 1. 4.2 cm TI RADS 4 versus TI RADS 5 right thyroid nodule and adjacent potentially independent 1.5 cm Ti RADS 5 nodule. Would recommend ultrasound guided biopsy of both nodules which could represent sep arate portions of the same nodule. Reviewed, dictated and finalized at location A. IMPRESSION: 1. 4.2 cm TI RADS 4 versus TI RADS 5 right thyroid nodule and adjacent potentia lly independent 1.5 cm Ti RADS 5 nodule. Would recommend ultrasound guided biop sy of both nodules which could represent separate portions of the same nodule.
--- NOTE | ~2025-01-21 | CT_ITS ---
EXAMINATION: CT abdomen pelvis w con DATE: 01/21/2025 16:59 INDICATION: Abdominal pain TECHNIQUE: Computed tomography (CT) of the abdomen and pelvis was performed with 100 mL Omnipaque-350 intravenous contrast. Automated exposure control and iterative reconstruction technique were employe d. The dose-length product was 462.21 mGy-cm. COMPARISON: None. FINDINGS: Lower thorax: Cardiomegaly. Trace right basilar atelectasis Liver: Normal. Biliary/Gallbladder: Gallbladder is normal. No bile duct dilation. Pancreas: No mass or duct dilation. Spleen: Normal. Adrenals:No mass. Kidneys: Hyperdense right upper pole lesion measuring greater than 70 Hounsfield units, likely hemorr hagic cyst. Indeterminate density 1.6 cm right midpole lesion. Bilateral renal cortical thinning and scarring. Multiple bilateral subcentimeter hypodensities, too small to characterize but most likely r epresent cysts. No obstructing calcification. No hydronephrosis. GI tract: Mild distal esophageal and gastric wall edema. No small or large bowel dilation. The append ix is mildly dilated to 7 mm, with mild wall hyperemia. Air distention of a portion of the mid append ix. No appendicolith or surrounding inflammatory change. Mesentery/Peritoneum: No ascites, mass, or free air. Retroperitoneum: No mass. Filling defect in the right external iliac vein. Low density within the sup erior portion of the inferior vena cava at the level of the renal veins and extending to the level of the hepatic veins. Pelvis: Partially distended urinary bladder with mild wall thickening. Normal uterus. Normal bilatera l ovaries. Soft Tissues: Soft tissues and body wall unremarkable. Bones: No acute osseous finding. IMPRESSION: Mild esophagitis/gastritis. Indeterminate density 1.6 cm right midpole renal lesion. Recommend timely outpatient MRI or CT withou t and with contrast for further characterization. Minimal dilation of the appendix with wall hyperemia, no inflammatory changes, these findings may be normal for this patient or represent early acute appendicitis in the appropriate clinical context. Filling defect in the right external iliac vein concerning for venous thrombosis. Low density in the superior portion of the inferior vena cava may represent a column of unenhanced venous blood or an ad ditional site of thrombosis. Mild wall thickening of the urinary bladder may represent thickening from incomplete distention or cy stitis. Reviewed, dictated and finalized at location K. IMPRESSION: Mild esophagitis/gastritis. Indeterminate density 1.6 cm right midpole renal lesion. Recommend timely outpa tient MRI or CT without and with contrast for further characterization. Minimal dilation of the appendix with wall hyperemia, no inflammatory changes, these findings may be normal for this patient or represent early acute appendic itis in the appropriate clinical context. Filling defect in the right external iliac vein concerning for venous thrombosi s. Low density in the superior portion of the inferior vena cava may represent a column of unenhanced venous blood or an additional site of thrombosis. Mild wall thickening of the urinary bladder may represent thickening from incom plete distention or cystitis.
--- NOTE | ~2025-01-21 | CT_ITS ---
EXAMINATION: CTA chest PE abdomen pel DATE: 01/21/2025 19:52 INDICATION: concern PE TECHNIQUE: Computed tomography angiography (CTA) of the chest was performed with 100 mL Omnipaque-350 intravenous contrast timed to evaluate the pulmonary arteries, followed by venous phase imaging of t he abdomen and pelvis. Coronal maximum intensity projection 3D-reconstructions were created by the te chnologist. The dose-length product (DLP) was 829.78 mGy-cm. Automated exposure control and iterative reconstruction technique were employed. COMPARISON: CT abdomen and pelvis, same date. FINDINGS: CHEST: Lung parenchyma and airways: Scattered sub-6 mm pulmonary nodules. Lungs otherwise clear. Patent airw ays. Pleura: Unremarkable. Thoracic inlet, axillae and chest wall: Masslike enlargement of the right thyroid gland with extensio n into the thoracic inlet and associated calcifications. Thoracic aorta: No significant dilation. No dissection. Mediastinum: Dilated, patulous esophagus. Dilated central pulmonary arteries. Heart and pericardium: Cardiomegaly. Apical thinning as can be seen with prior infarct. Left ventricu lar hypertrophy. Patchy enhancement/artifact in the left ventricular muscle. RV/LV ratio 1.4. No hepa tic vein reflux. Coronary artery calcifications: Absent. Thoracic bones: No acute osseous finding. Pulmonary arteries: Study quality: Adequate. Nonocclusive segmental emboli in the right upper lobe. N onocclusive embolus bridging across the origin of right middle lobe branches and extending into the i nterlobar artery. No emboli detected in the left lung. ABDOMEN/PELVIS: Liver: Normal. Biliary/Gallbladder: No bile duct dilation. Pancreas: No mass or duct dilation. Spleen: Normal. Adrenals:No mass. Kidneys: Hyperdense, likely hemorrhagic right upper pole cyst. Indeterminate density 1.6 cm right mid pole lesion. Bilateral cortical thinning and scarring. GI tract: Mild distal esophageal and gastric wall edema. No small or large bowel dilation. Persistent mild dilation and wall hyperemia and the appendix. Mesentery/Peritoneum: No ascites, mass, or free air. Retroperitoneum: No mass. Suboptimal venous enhancement and filling. The IVC is mostly flattened, wit hout filling defect. Redemonstration of an apparent filling defect in the right internal iliac vein. Pelvis: The urinary bladder is distended and contrast-filled. Pelvic organs are otherwise within norm al limits. Soft Tissues: Soft tissues and body wall unremarkable. Abdominopelvic bones: No acute osseous finding. IMPRESSION: Acute right upper lobe segmental and right middle lobe segmental and right interlobar artery emboli. Moderate clot burden. Evidence of right heart strain. Patchy enhancement versus artifact in the left ventricular muscle, artifact is favored. Correlate wit h EKG and cardiac enzymes. Masslike enlargement of the right thyroid gland, consider thyroid ultrasound for further evaluation. Scattered sub-6 mm pulmonary nodules, which require no additional evaluation unless patient is at hig h risk in which case consider an optional CT in one year. Limited CT venogram of the abdomen and pelvis. The IVC is flattened, without visualized filling defec t indicating the prior findings in the IVC were likely artifactual. Redemonstration of the right inte rnal iliac vein thrombosis. Unchanged indeterminate lesion in the right kidney. Unchanged mild dilation and wall hyperemia in the appendix. Unchanged mild esophagitis/gastritis. The bladder is now fully distended without evidence of wall thickening or inflammatory change. Results reported telephonically to Dr. Bradford by Dr. Villatoro at 8:12 PM on 01/21/2025. Reviewed, dictated and finalized at location K. IMPRESSION: Acute right upper lobe segmental and right middle lobe segmental and right inte rlobar artery emboli. Moderate clot burden. Evidence of right heart strain. Patchy enhancement versus artifact in the left ventricular muscle, artifact is favored. Correlate with EKG and cardiac enzymes. Masslike enlargement of the right thyroid gland, consider thyroid ultrasound fo r further evaluation. Scattered sub-6 mm pulmonary nodules, which require no additional evaluation un less patient is at high risk in which case consider an optional CT in one year. Limited CT venogram of the abdomen and pelvis. The IVC is flattened, without vi sualized filling defect indicating the prior findings in the IVC were likely ar tifactual. Redemonstration of the right internal iliac vein thrombosis. Unchanged indeterminate lesion in the right kidney. Unchanged mild dilation and wall hyperemia in the appendix. Unchanged mild esophagitis/gastritis. The blad elliott is now fully distended without evidence of wall thickening or inflammatory change. Results reported telephonically to Dr. Bradford by Dr. Villatoro at 8:12 PM on 01/21.
--- NOTE | ~2025-01-21 | US_ITS ---
EXAMINATION: US venous doppler LE RT DATE: 01/21/2025 18:52 INDICATION: Possible thrombus in iliac on CT . TECHNIQUE: Grayscale images without and with compression and Doppler images of the right lower extrem ity veins were obtained. COMPARISON: None FINDINGS: The right common femoral vein, profunda (deep) femoral vein, femoral vein, popliteal vein, peroneal v ein, posterior tibial veins, gastrocnemius vein, and greater saphenous vein are patent. IMPRESSION: Patent right lower extremity veins. No evidence of deep venous thrombosis. Reviewed, dictated and finalized at location K.
--- OUTSIDE RECORDS SUMMARY | 2025-01-21 14:17 | XMS_ITS | Clinical Summary ---
Author Organization [facility] Address [address] [place] [address] Phone Care Team Providers Care Content Architect Name Role Phone Chandler Smith DO Unavailable [phone] Pura Madsen MD Primary Care Provider [phone] Allergies No known active allergies Medications aspirin [...] 12/14/2024 Telephone [facility] [address] [facility] [address] [facility] 4th Floor [address] [place] [address] Irene Smith from Last 3 [...] drink = 0.6 oz pur e alcohol) [facility] Utilities Answer Date Recorded In the past 12 months has [employer], gas, oil, or water [employer] threatened to shut off services in your [...] often do you attend chur ch or church services? Patient unable to answer 02/25/2024 Do you belong to any clubs o r organizations such as catholic groups, unions, fraternal or athletic groups, or [...] any time in the past 12 m [facility], were you homeless or living in a jail (including now)? Patient unable to answer 02/25/2024 [...] MICROBIOLOGY - GENERAL ORDERABLES Final Result [facility] [id number] [address] Department [place] [address] from Last 3 Months or Most Recently Relevant to Health Maintenance Insurance [facility] Advance Directives For more information, please contact: [phone] * Full Code (Latest Code Status on File) Date Activated Date Inactivated Comments 02/23/2024 4:08 AM 02/28/2024 1:43 AM Care Teams Content Architect Relationship Specialty Start Date End Date Pura Madsen MD [address] [place] [address] PCP - General Family Medicine 10/24/24 Chandler Smith DO Family Medicine 12/02/22
--- OUTSIDE RECORDS SUMMARY | 2025-01-21 14:17 | XMS_ITS | Encounter Summary ---
Author Organization [facility] Address [address] [place] [address] Phone Care Team Providers Care Rollout Manager Name Role Phone Marlyn Edgar NP Primary Care Provider Chandler Smith DO Primary Care Provider [phone] Chandler Smith DO Unavailable [phone] Pura Madsen MD Primary Care Provider [phone] Encounter Details Date Type Department Care Team (Late st Contact Info) Description 11/06/2017 Orders Only [facility] ProviderKinza MD [address] [phone] Social History Tobacco Use Types Packs/Day Years [...] documented as of this encounter Care Teams Rollout Manager Relationship Specialty Start Date End Date Marlyn Edgar NP PCP - General Family Medicine 11/05/17 12/01/22 Chandler Smith DO PCP - General Family Medicine 12/02/22 10/23/24 Pura Madsen MD [address] [place] [address] PCP - General Family Medicine 10/24/24 Chandler Smith DO Family Medicine 12/02/22 documented as of this encounter
--- OUTSIDE RECORDS SUMMARY | 2025-01-21 14:17 | XMS_ITS | Clinical Summary ---
Author Organization [facility] Address [address], [facility] [address] [place] [address] Phone Care Team Providers Care Linux Unix System Administrator Name Role Phone Pura Madsen MD Primary Care Provider [phone] Simona Longoria MD Unavailable Allergies No known [...] CDT Office Visit [facility] [address] [phone] Nicole Cespedes, HEALTH FACILITIES SURVEYOR, CLOTH DYE RANGE OPERATOR Thrombocytopenia (HCC) (Primary Dx); Mass of upper outer quadrant of right breast; Positive LISETH (antinuclear antibody); Elevated alkaline phosphatase level 11/22/2024 1:00 PM CDT Lab [facility] [address] [phone] Lab, Cc Angelinaairam Thrombocytopenia (HCC); Mass of [...] on file 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 HGB 14.6 11.2 - 15.7 g/dL [facility] ADULT BASIC EDUCATION [facility]NA[facility] HCT 45.2(H) 34.1 - 44.9 % [facility] ADULT BASIC [facility]UCATION [facility] PLT 103(L) 163 - 369 10*3/uL [facility] MPV 12.3 9.4 - 12.4 fL [facility] EDUCATION MA[facility]GER [facility] RBC 4.93 3.93 - 5.22 10*6/uL [facility] MCV 92 79 - 95 fL [facility] EDUCATION [facility] MCH 29.6 25.6 - 32.2 pg [facility]UCATION [facility] MCHC 32.3 32.2 - 36.5 g/dL [facility] RDW 13.6 11.6 - 14.4 % [facility] Neutrophils % 69.9(H) 36.0 - 66.0 % [facility] Lymphocytes % 18.9(L) 19.0 - 40.0 % [facility] Monocytes % 6.5 4.1 - 12.1 % [facility] Eosinophils % 3.5 0.0 - 3.5 % [facility] Basophils % 0.9 0.0 - 1.0 % [facility] ADULT BASIC EDUCATION [facility] Absolute Neutrophils 4.7 1.4 - 6.6 10*3/uL [facility] Absolute Lymphocytes 1.3 0.8 - 4.0 10*3/uL [facility] ADULT BASIC EDUCATION [facility]NA[facility] Absolute Monocytes 0.4 0.2 - 1.2 10*3/uL [facility] ADULT BASIC [facility]UCATION [facility] Absolute Eosinophils 0.2 0.0 - 0.4 10*3/uL [facility] Absolute Basophils 0.1 0.0 - 0.1 10*3/uL [facility] 11/22/2024 12:5 8 PM CDT Simona Longoria MD LAB SEND OUTS Final Result [facility] BASIC EDUCATION MANAGER [facility] Sharif Meza [address] [phone] * (ABNORMAL) CMP (COMPREHENSIVE METABOLIC PANEL) (11/22/2024 12:58 PM CDT) Glucose 91 70 - 105 mg/dL [facility] Blood Urea Nitrogen 31(H) 7 - 25 mg/dL [facility] Creatinine 1.7(H) 0.6 - 1.2 mg/dL [facility] Sodium 141 136 - 145 mEq/L [facility] ADULT BASIC EDUCATION [facility] Potassium 4.4 3.5 - 5.1 mEq/L [facility] ADULT BASIC [facility]UCATION [facility] Chloride 108(H) 98 - 107 mEq/L [facility] Bicarbonate 25 21 - 31 mEq/L [facility] Total Bilirubin 0.5 0.3 - 1.0 mg/dL [facility] Alk. Phosphatase 132(H) 34 - 104 U/L [facility] Aspartate Aminotransferase 15 13 - 39 U/L [facility] Alanine Aminotransferase 19 7 - 52 U/L [facility] Total Protein 7.2 6.4 - 8.9 g/dL [facility] Albumin 4.3 3.5 - 5.7 g/dL [facility] Calcium 9.4 8.6 - 10.3 mg/dL [facility] Anion Gap 12.4 7.0 - 15.0 mEq/L [facility] Globulin 2.9 2.0 - 3.5 g/dL [facility] EGFR 32(L) >60 ml/min/1. 73m2 [facility] ADULT BASIC [facility]UCATION [facility] Comment: This eGFR is calculated using 2020 CKD-EPI Creatinine equation without race modifier based on the NKF-ASN task force recommendations Equation: xFQD=853*min(SCr/k,1)a*max(SCr/k,1)-1.200*0.9938Age*1.012 (if female), where SCr is serum creatinine, k is 0.7 for females and 0.9 for males, and a is -0.241 for females and -0.302 for males Blood 11/22/2024 12:5 8 PM CDT Narrative [facility] - 11/22/2024 2:13 PM CDT Release to patient->Immediate IS THE PATIENT REQUIRED TO BE FASTING FOR 8 HOURS?->No us Simona Longoria MD CHEMISTRY ORDERABLES Final Resul t [facility] BASIC EDUCATION MA[facility]GER [facility] [place] [address], [place] [phone] from Last 3 Months Insurance MEDICAID [employer] Care Teams Linux Unix System Administrator Relationship Specialty Start Date End Date Pura Madsen MD [address] [place] [address] PCP - General Family Medicine 08/22/24 Simona Longoria MD [address] [place] [address] Consulting Physician Oncology 08/22/24
--- OUTSIDE RECORDS SUMMARY | 2025-01-21 14:17 | XMS_ITS | Clinical Summary ---
Author Organization [facility] Address [address] [place] [address] Care Team Providers Care Rivet Catcher Name Role Phone Puar Madsen MD Primary Care Provider [phone] Allergies No known active allergies Medications triamcinolone [...] H F chronicity, unspecified heart failure type ([facility]) 08/09/2024 Mixed hyperlipidemia 08/09/2024 Primary hypertension 08/09/2024 Encounters Date Type Department Care Team Description 12/30/2024 10:15 AM CDT - 12/30/2024 11:59 PM CDT Hospital Encounter [facility] [place] [place] [address] Pura Madsen MD Witte, Lauren E, WASH DRILLER HELPER Discharge Disposition: Home or Self Care (Routine Discharge) 12/30/2024 Travel 12/27/2024 Telephone [facility] [place] [address] Kimberly Senior, WASH DRILLER HELPER Called To Cancel Office Appt. 12/23/2024 10:15 AM CDT - 12/23/2024 11:59 PM CDT Hospital Encounter [facility] [place] [address] Pura Madsen MD Damron, Alexis, WASH DRILLER HELPER Discharge Disposition: Home or Self Care (Routine Discharge) 12/23/2024 Travel 12/20/2024 10:15 AM CDT - 12/20/2024 11:59 PM CDT Hospital Encounter [facility] [address] Pura Madsen MD Witte, Lauren E, WASH DRILLER HELPER Discharge Disposition: Home or Self Care (Routine Discharge) 12/20/2024 Travel 12/09/2024 1:30 PM CDT - 12/09/2024 11:59 PM CDT [facility] [place] [address] Pura Madsen MD Witte, Lauren E, WASH DRILLER HELPER Discharge Disposition: Home or Self Care (Routine Discharge) 12/09/2024 Travel 12/06/2024 1:28 PM CDT - 12/06/2024 11:59 PM CDT [place] [address] Pura Madsen MD Lewis, Molly A, WASH DRILLER HELPER Discharge Disposition: Home or Self Care (Routine Discharge) 12/06/2024 Travel 12/02/2024 1:30 PM CDT - 12/02/2024 11:59 PM CDT Hospital Encounter [facility] [place] [address] Pura Madsen MD Meyer, Debra S, WASH DRILLER HELPER Discharge Disposition: Home or Self Care (Routine Discharge) 12/02/2024 Travel 12/01/2024 Scan [employer] SRVCS Scanned, [facility] 11/29/2024 1:30 PM CDT - 11/29/2024 11:59 PM CDT [place] [address] Pura Madsen MD Meyer, Debra S, WASH DRILLER HELPER Discharge Disposition: Home or Self Care (Routine Discharge) 11/29/2024 Travel 11/24/2024 12:45 PM CDT - 11/24/2024 11:59 PM CDT [place] [address] Pura Madsen MD Myers, Traci R, WASH DRILLER HELPER Discharge Disposition: Home or Self Care (Routine Discharge) 11/24/2024 Travel 11/22/2024 10:15 AM CDT - 11/22/2024 11:59 PM CDT [place] [address] Pura Madsen MD Lewis, Molly A, WASH DRILLER HELPER Discharge Disposition: Home or Self Care (Routine Discharge) 11/22/2024 Scan [facility] SRVCS Scanned, [facility] 11/22/2024 Travel 11/18/2024 3:36 PM CDT - 11/18/2024 11:59 PM CDT Hospital Encounter [facility] [place] [address] Pura Madsen MD Haas, Matthew R, PT Discharge Disposition: Home or Self Care (Routine Discharge) 11/18/2024 Travel 11/17/2024 Scan [facility] Scanned, [facility] 11/11/2024 Scan [facility] Scanned, [facility] 10/27/2024 Telephone [facility] Medical [facility] Family Medicine [address] [address] Pura Madsen MD Surgical Clearance from Last 3 Months Family History Medical [...] Sex Assigned at Female 06/29/2024 2:39 PM RUNNING INSTRUCTOR Legal Sex Female 2:34 PM RUNNING INSTRUCTOR Gender Identity Not on file Sexual Orientation [...] Description 03/07/2025 1:40 PM CDT Office Visit [facility] Medical Group Family Medicine [facility] [address] [place] [address] Pura Madsen MD [address] [place] [address] Health Maintenance Due Date Last Done Comments [...] Dexa Scan (General) Completed 08/18/2024 PHQ-2 (Physician [place]) Completed 10/18/2024 Meningococcal B Vaccine Aged Out [...] BONE DENSITY/DEXA Routine 08/18/2024 12: 44 PM RUNNING INSTRUCTOR Osteoporosis screening COLOGUARD (EXACT SCIENCE) Routine 2024 10:30 PM RUNNING INSTRUCTOR Colon cancer screening HEPATITIS C ANTIBODY Routine 08/01/2024 3:35 PM RUNNING INSTRUCTOR Encounter for hepatitis C screening test for low risk patient from Last 3 Months or Most Recently Relevant to Health Maintenance Results * MG MARCUS Moss YAW BILAT DIGI (09/09/2024 10:39 AM CDT) [...] 11:53 AM Narrative 09/09/2024 11:59 AM CDT [facility] [address] [place] [address] EXAMINATION: MG MARCUS TIDWELL BILAT DIGAlisha, US BREAST RT BIRAD LTD [id number] INDICATIONS: Abnormal mammogram TECHNIQUE: Digital full field [...] abnormal shadowing within the visualized right breast. us Pura Madsen MD MAMMO Final Result * BONE DENSITY/DEXA (08/18/2024 12:44 PM RUNNING INSTRUCTOR) Anatomical Region Laterality Modality Bone Mammography 08/18/2024 2:12 PM RUNNING INSTRUCTOR Impressions 08/18/2024 2:13 PM RUNNING INSTRUCTOR IMPRESSION: WHO Classification: Osteopenia. RECOMMENDATIONS: All patients [...] 08/18/2024 2:12 PM Narrative 08/18/2024 2:13 PM RUNNING INSTRUCTOR [facility] [address] [place] [address] EXAMINATION: BONE DENSITY/DEXA INDICATIONS: Encounter for screening [...] Procedure Note Ventura Ramon MD - 08/18/2024 [facility] [address] [place] [address] EXAMINATION: BONE DENSITY/DEXA INDICATIONS: Encounter for screening [...] Pura Madsen MD DEXA Final Result * COLOGUARD ([employer] SCIENCE) (2024 10:30 PM RUNNING INSTRUCTOR) COLOGUARD RESULT Negative Negative EXA [employer] (CLIA #:[id number]) Comment: NEGATIVE TEST RESULT. A negative Cologuard [...] (Dora Ron al, N Engl J Med 2014;370(14):9187-7360) The normal value (reference range) for this assay is negative. COLOGUARD RE-SCREENING RECOMMENDATION: Periodic colorectal cancer screening is an important part of preventive healthcare for asymptomatic individuals at average risk for colorectal cancer. Following a negative Cologuard result, the [place] [employer] Society and U.S. Multi-Society Task Force screening guidelines recommend a Cologuard re-screening interval of 3 years. References: [place] [employer] Guideline for Colorectal Cancer Screening: https://www.cancer.org/cancer/jdjlm-knwany-obdsia/zfagzampg-uzvbcuspm-axskmgu/ac s-rec ommendations.html.; Dillon DK, Joseph KLEIN, Mary AcostaK, Colorectal Cancer Screening: Recommendations for Physicians and Patients from the U.S. Multi-Society Task Force on Colorectal Cancer Screening , Am J Gastroenterology 2017; 112:6536-6522. TEST DESCRIPTION: Composite algorithmic analysis of stool [...] screened with both Cologuard and colonoscopy. (Dora Zheng, N Engl J Med 2014;370(14):2344-2445.) Cologuard may produce a false negative or false positive result (no colorectal cancer or precancerous polyp present at colonoscopy follow up). A negative Cologuard test result does not guarantee the absence of CRC or advanced adenoma (pre-cancer). The current Cologuard screening interval is every 3 years. ([place] [employer] Society and U.S. Multi-Society Task Force). Cologuard performance data in a 10,000 patient pivotal study using colonoscopy as the reference method can be accessed at the following location: www.[employer].com/results. Additional description of the Cologuard test process, warnings and precautions can be found at www.cologuard.com. STOOL STOOL SPECIMEN / Unknown 2024 10:30 PM RUNNING INSTRUCTOR 08/10/2024 10:03 AM RUNNING INSTRUCTOR us Pura Madsen MD BODY FLUIDS AND STOOLS ORDERABLE S Final Result Performing Organization Address City/[facility] Co de Phone Number [employer] ([email or web address] 145 LAB) [address] [email or web address] [address], [employer] (CLIA #:[id number]) [address] [email or web address] [address] * HEPATITIS C ANTIBODY (08/01/2024 3:35 PM RUNNING INSTRUCTOR) HEPATITIS C AB NON-REACTI VE NON-REACTI VE 08/01/2024 5:02 PM RUNNING INSTRUCTOR [facility] 08/01/2024 3:35 PM RUNNING INSTRUCTOR us Pura Madsen MD LABORATORY Final Result Performing Organization Address City/[facility]/ZIP Co de Phone Number [facility] [address] [place] [address], [place] [phone] from Last 3 Months or Most Recently Relevant to Health Maintenance Insurance [employer] Care Teams Rivet Catcher Relationship Specialty Start Date End Date Pura Madsen MD [address] [place] [address] PCP - General FAMILY PRACTICE 07/26/24
--- OUTSIDE RECORDS SUMMARY | 2025-01-21 15:49 | XMS_ITS | Clinical Summary ---
Author Organization [facility] Address [address] [place] [address] Phone Care Team Providers Care Grinding Supervisor Name Role Phone Chandler Smith DO Unavailable [phone] Pura Madsen MD Primary Care Provider [phone] Allergies No known active allergies Medications aspirin [...] Description 12/14/2024 Telephone [facility] [address] 4[address] [place] [address] Irene Smith from Last 3 [...] drink = 0.6 oz pur e alcohol) [facility] Utilities Answer Date Recorded In the past 12 months has [employer], gas, oil, or water [employer] threatened to shut off services in your [...] any clubs o r organizations such as confucianism groups, unions, fraternal or athletic groups, or [...] any time in the past 12 m [facility], were you homeless or living in a correction (including now)? Patient unable to answer 02/25/2024 [...] MICROBIOLOGY - GENERAL ORDERABLES Final Result [address] [address] [address] Department [place] [address] from Last 3 Months or Most Recently Relevant to Health Maintenance [place] [address] [facility] Advance Directives For more information, please contact: [phone] * Full Code (Latest Code Status on File) Date Activated Date Inactivated Comments 02/23/2024 4:08 AM 02/28/2024 1:43 AM Care Teams Grinding Supervisor Relationship Specialty Start Date End Date Pura Madsen MD [address] [place] [address] PCP - General Family Medicine 10/24/24 Chandler Smith DO Family Medicine 12/02/22
--- OUTSIDE RECORDS SUMMARY | 2025-01-21 15:49 | XMS_ITS | Encounter Summary ---
Author Organization [facility] Address [address] [place] [address] Phone Care Team Providers Care Pilot Name Role Phone Marlyn Edgar NP Primary Care Provider [phone] Chandler Smith DO Primary Care Provider [phone] Chandler Smith DO Unavailable [phone] Pura Madsen MD Primary Care Provider [phone] Encounter Details Date Type Department Care Team (Late st Contact Info) Description 11/06/2017 Orders Only [facility] ProviderKinza MD [address] [phone] Social History Tobacco Use Types Packs/Day Years [...] documented as of this encounter Care Teams Pilot Relationship Specialty Start Date End Date Marlyn Edgar NP PCP - General Family Medicine 11/05/17 12/01/22 Chandler Smith DO PCP - General Family Medicine 12/02/22 10/23/24 Pura Madsen MD [address] [place] [address] PCP - General Family Medicine 10/24/24 Chandler Smith DO Family Medicine 12/02/22 documented as of this encounter
--- OUTSIDE RECORDS SUMMARY | 2025-01-21 15:49 | XMS_ITS | Clinical Summary ---
Author Organization [facility] Address [address] [place] [address] Care Team Providers Care Global Chief Experience Officer Name Role Phone Pura Madsen MD Primary [...] H F chronicity, unspecified heart failure type ([facility]) 08/09/2024 Mixed hyperlipidemia 08/09/2024 Primary hypertension 08/09/2024 Encounters Date Type Department Care Team Description 12/30/2024 10:15 AM CDT - 12/30/2024 11:59 PM CDT Hospital [facility] [place] [address] Pura Madsen MD Witte, Lauren E, BIOPHYSICS PROFESSOR Discharge Disposition: Home or Self Care (Routine Discharge) 12/30/2024 Travel 12/27/2024 [place] [address] Kimberly Senior, BIOPHYSICS PROFESSOR Called To Cancel Office Appt. 12/23/2024 10:15 AM CDT - 12/23/2024 11:59 PM CDT Hospital Encounter [place] [address] Pura Madsen MD Damron, Alexis, BIOPHYSICS PROFESSOR Discharge Disposition: Home or Self Care (Routine Discharge) 12/23/2024 Travel 12/20/2024 10:15 AM CDT - 12/20/2024 11:59 PM CDT Hospital Encounter [facility] [place] [address] Pura Madsen MD Witte, Lauren E, BIOPHYSICS PROFESSOR Discharge Disposition: Home or Self Care (Routine Discharge) 12/20/2024 Travel 12/09/2024 1:30 PM CDT - 12/09/2024 11:59 PM CDT [facility] [place] [address] Pura Madsen MD Witte, Lauren E, BIOPHYSICS PROFESSOR Discharge Disposition: Home or Self Care (Routine Discharge) 12/09/2024 Travel 12/06/2024 1:28 PM CDT - 12/06/2024 11:59 PM [place] [address] Pura Madsen MD Lewis, Molly A, BIOPHYSICS PROFESSOR Discharge Disposition: Home or Self Care (Routine Discharge) 12/06/2024 Travel 12/02/2024 1:30 PM CDT - 12/02/2024 11:59 PM CDT Hospital [place] [address] Pura Madsen MD Meyer, Debra S, BIOPHYSICS PROFESSOR Discharge Disposition: Home or Self Care (Routine Discharge) 12/02/2024 Travel 12/01/2024 Scan [employer] SRVCS Scanned, [facility] 11/29/2024 1:30 PM CDT - 11/29/2024 11:59 PM [place] [address] Pura Madsen MD Meyer, Debra S, BIOPHYSICS PROFESSOR Discharge Disposition: Home or Self Care (Routine Discharge) 11/29/2024 Travel 11/24/2024 12:45 PM CDT - 11/24/2024 11:59 PM [place] [address] Pura Madsen MD Myers, Traci R, BIOPHYSICS PROFESSOR Discharge Disposition: Home or Self Care (Routine Discharge) 11/24/2024 Travel 11/22/2024 10:15 AM CDT - 11/22/2024 11:59 PM CD[place] [address] Pura Madsen MD Lewis, Molly A, BIOPHYSICS PROFESSOR Discharge Disposition: Home or Self Care (Routine Discharge) 11/22/2024 Scan [facility] Scanned, [facility] 11/22/2024 Travel 11/18/2024 3:36 PM CDT - 11/18/2024 11:59 PM CDT Hospital Encounter [facility] [place] [address] Pura Madsen MD Haas, Matthew R, PT Discharge Disposition: Home or Self Care (Routine Discharge) 11/18/2024 Travel 11/17/2024 Scan [facility] Scanned, [facility] 11/11/2024 Scan [facility] Scanned, [facility] 10/27/2024 Telephone [facility] Medical [facility] Family Medicine [address] [address] Pura Madsen MD Surgical Clearance [...] Sex Assigned at Female 06/29/2024 2:39 PM WOOD VENEER TAPER Legal Sex Female 2:34 PM WOOD VENEER TAPER Gender Identity Not on file Sexual Orientation [...] Description 03/07/2025 1:40 PM CDT Office Visit [facility] Medical Group Family Medicine [facility] [address] [place] [address] Pura Madsen MD [address] [place] [address] Health Maintenance Due Date Last Done Comments [...] Dexa Scan (General) Completed 08/18/2024 PHQ-2 (Physician [place]) Completed 10/18/2024 Meningococcal B Vaccine Aged Out [...] BONE DENSITY/DEXA Routine 08/18/2024 12: 44 PM WOOD VENEER TAPER Osteoporosis screening COLOGUARD (EXACT SCIENCE) Routine 2024 10:30 PM WOOD VENEER TAPER Colon cancer screening HEPATITIS C ANTIBODY Routine 08/01/2024 3:35 PM WOOD VENEER TAPER Encounter for hepatitis C screening test for [...] 11:53 AM Narrative 09/09/2024 11:59 AM CDT [facility] [address] [place] [address] EXAMINATION: MG MARCUS TIDWELL BILAT DIGAlisha, US BREAST RT BIRAD LTD [id number] INDICATIONS: Abnormal mammogram TECHNIQUE: Digital full field [...] Result * BONE DENSITY/DEXA (08/18/2024 12:44 PM WOOD VENEER TAPER) Anatomical Region Laterality Modality Bone Mammography 08/18/2024 2:12 PM WOOD VENEER TAPER Impressions 08/18/2024 2:13 PM WOOD VENEER TAPER IMPRESSION: WHO Classification: Osteopenia. RECOMMENDATIONS: All patients [...] 08/18/2024 2:12 PM Narrative 08/18/2024 2:13 PM WOOD VENEER TAPER [facility] [address] [place] [address] EXAMINATION: BONE DENSITY/DEXA INDICATIONS: Encounter for screening [...] Procedure Note Ventura Ramon MD - 08/18/2024 [facility] [address] [place] [address] EXAMINATION: BONE DENSITY/DEXA INDICATIONS: Encounter for screening [...] Madsen MD DEXA Final Result * COLOGUARD ([employer] SCIENCE) (2024 10:30 PM WOOD VENEER TAPER) COLOGUARD RESULT Negative Negative EXA [employer] (CLIA #:[id number]) Comment: NEGATIVE TEST RESULT. A negative Cologuard [...] (Dora Ron al, N Engl J Med 2014;370(14):4312-2761) The normal value (reference range) for this assay is negative. COLOGUARD RE-SCREENING RECOMMENDATION: Periodic colorectal cancer screening is an important part of preventive healthcare for asymptomatic individuals at average risk for colorectal cancer. Following a negative Cologuard result, the [place] [employer] Society and U.S. Multi-Society Task Force screening guidelines recommend a Cologuard re-screening interval of 3 years. References: [place] [employer] Guideline for Colorectal Cancer Screening: https://www.cancer.org/cancer/ikhtq-uazsvv-fqwoqx/nvbeyhxue-umkmeafwj-ismwymm/ac s-rec ommendations.html.; Dillon DK, Joseph KLEIN, Mary AcostaK, Colorectal Cancer Screening: Recommendations for Physicians and Patients from the U.S. Multi-Society Task Force on Colorectal Cancer Screening , Am J Gastroenterology 2017; 112:9387-5483. TEST DESCRIPTION: Composite algorithmic analysis of stool [...] colonoscopy. (Dora Zheng, N Engl J Med 2014;370(14):6006-8540.) Cologuard may produce a false negative or false positive result (no colorectal cancer or precancerous polyp present at colonoscopy follow up). A negative Cologuard test result does not guarantee the absence of CRC or advanced adenoma (pre-cancer). The current Cologuard screening interval is every 3 years. ([place] Cancer Society and U.S. Multi-Society Task Force). Cologuard performance data in a 10,000 patient pivotal study using colonoscopy as the reference method can be accessed at the following location: www.[employer].com/results. Additional description of the Cologuard test process, warnings and precautions can be found at www.cologuard.com. STOOL STOOL SPECIMEN / Unknown 2024 10:30 PM WOOD VENEER TAPER 08/10/2024 10:03 AM WOOD VENEER TAPER us Pura Madsen MD BODY FLUIDS AND STOOLS ORDERABLE S Final Result Performing Organization Address City/[facility] Co de Phone Number [employer] 145 LAB) [address] [place] [address], [employer] (CLIA #:[id number]) [address] [place] [address] * HEPATITIS C ANTIBODY (08/01/2024 3:35 PM WOOD VENEER TAPER) HEPATITIS C AB NON-REACTI VE NON-REACTI VE 08/01/2024 5:02 PM WOOD VENEER TAPER [facility] 08/01/2024 3:35 PM WOOD VENEER TAPER us Pura Madsen MD LABORATORY Final Result Performing Organization Address City/[facility]/ZIP Co de Phone Number [facility] [address] [place] [address], [place] [phone] from Last 3 Months or Most Recently Relevant to Health Maintenance Insurance [employer] Care Teams Global Chief Experience Officer Relationship Specialty Start Date End Date Pura Madsen MD [address] [place] [address] PCP - General FAMILY PRACTICE 07/26/24
--- OUTSIDE RECORDS SUMMARY | 2025-01-21 15:49 | XMS_ITS | Clinical Summary ---
Author Organization [facility] Address [address], [facility] [address] [place] [address] Phone Care Team Providers Care Impress Associate Name Role Phone Pura Madsen MD Primary Care Provider [phone] Simona Longoria MD Unavailable Allergies No known [...] CDT Office Visit [facility] [address] [phone] Nicole Cespedes, HVAC TECHNICIAN, HOT DIP PLATER Thrombocytopenia (HCC) (Primary Dx); Mass of upper outer quadrant of right breast; Positive LISETH (antinuclear antibody); Elevated alkaline phosphatase level 11/22/2024 1:00 PM CDT Lab [facility] [address] [phone] Lab, Cc Angelinaairam Thrombocytopenia (HCC); Mass of [...] on file Legal Sex Female 3:05 PM SENIOR MEDICAL DIRECTOR Gender Identity Not on file Sexual Orientation [...] PM CDT Lab [facility] [address] [phone] Lab, Cc [place] 02/21/2025 1:15 PM CDT Office Visit [facility] [address] [phone] Simona Longoria MD [address] [place] [id number] Health Maintenance Due Date Last Done Comments [...] WBC 6.7 4.0 - 10.0 10*3/uL [facility] HGB 14.6 11.2 - 15.7 g/dL [facility] HCT 45.2(H) 34.1 - 44.9 % [facility] PLT 103(L) 163 - 369 10*3/uL [facility] MPV 12.3 9.4 - 12.4 fL [facility]PORATE OPERATIONS COMPLIANCE MANAGER [facility] RBC 4.93 3.93 - 5.22 10*6/uL [facility] MCV 92 79 - 95 fL [facility]PORATE OPERATIONS COMPLIANCE MANAGER [facility] MCH 29.6 25.6 - 32.2 pg [facility]PORATE OPERATIONS COMPLIANCE MANAGER [facility] MCHC 32.3 32.2 - 36.5 g/dL [facility]PORATE OPERATIONS COMPLIANCE MANAGER [facility] RDW 13.6 11.6 - 14.4 % [facility]PORATE OPERATIONS COMPLIANCE MANAGER [facility] Neutrophils % 69.9(H) 36.0 - 66.0 % [facility]PORATE OPERATIONS COMPLIANCE MANAGER [facility] Lymphocytes % 18.9(L) 19.0 - 40.0 % [facility]PORATE OPERATIONS COMPLIANCE MANAGER [facility] Monocytes % 6.5 4.1 - 12.1 % [facility]PORATE OPERATIONS COMPLIANCE MANAGER [facility] Eosinophils % 3.5 0.0 - 3.5 % [facility]PORATE OPERATIONS COMPLIANCE MANAGER [facility] Basophils % 0.9 0.0 - 1.0 % [facility] Absolute Neutrophils 4.7 1.4 - 6.6 10*3/uL [facility] Absolute Lymphocytes 1.3 0.8 - 4.0 10*3/uL [facility] Absolute Monocytes 0.4 0.2 - 1.2 10*3/uL [facility] Absolute Eosinophils 0.2 0.0 - 0.4 10*3/uL [facility] Absolute Basophils 0.1 0.0 - 0.1 10*3/uL [facility] 11/22/2024 12:5 8 PM CDT Simona Longoria MD LAB SEND OUTS Final Result [facility]PORATE OPERATIONS COMPLIANCE MANAGER [facility] Sharif Meza [address] [phone] * (ABNORMAL) CMP (COMPREHENSIVE METABOLIC PANEL) (11/22/2024 12:58 PM CDT) Glucose 91 70 - 105 mg/dL [facility] Blood Urea Nitrogen 31(H) 7 - 25 mg/dL [facility] Creatinine 1.7(H) 0.6 - 1.2 mg/dL [facility] Sodium 141 136 - 145 mEq/L [facility] Potassium 4.4 3.5 - 5.1 mEq/L [facility] Chloride 108(H) 98 - 107 mEq/L [facility] Bicarbonate 25 21 - 31 mEq/L [facility] Total Bilirubin 0.5 0.3 - 1.0 mg/dL [facility] Alk. Phosphatase 132(H) 34 - 104 U/L [facility] Aspartate Aminotransferase 15 13 - 39 U/L [facility] Alanine Aminotransferase 19 7 - 52 U/L [facility] Total Protein 7.2 6.4 - 8.9 g/dL [facility] Albumin 4.3 3.5 - 5.7 g/dL [facility] Calcium 9.4 8.6 - 10.3 mg/dL [facility] Anion Gap 12.4 7.0 - 15.0 mEq/L [facility] Globulin 2.9 2.0 - 3.5 g/dL [facility] EGFR 32(L) >60 ml/min/1. 73m2 [facility] Comment: This eGFR is calculated using 2020 CKD-EPI Creatinine equation without race modifier based on the NKF-ASN task force recommendations Equation: bRVM=048*min(SCr/k,1)a*max(SCr/k,1)-1.200*0.9938Age*1.012 (if female), where SCr is serum creatinine, k is 0.7 for females and 0.9 for males, and a is -0.241 for females and -0.302 for males Blood 11/22/2024 12:5 8 PM CDT Narrative [facility] - 11/22/2024 2:13 PM CDT Release to patient->Immediate IS THE PATIENT REQUIRED TO BE FASTING FOR 8 HOURS?->No us Simona Longoria MD CHEMISTRY ORDERABLES Final Resul t [facility]PORATE OPERATIONS COMPLIANCE MANAGER [facility] [place] [address], [place] [phone] from Last 3 Months Insurance MEDICAID [place] Care Teams Impress Associate Relationship Specialty Start Date End Date Pura Madsen MD [address] [place] [address] PCP - General Family Medicine 08/22/24 Simona Longoria MD [address] [place] [address] Consulting Physician Oncology 08/22/24
[2025-01-21] MEDS: LACTATED RINGERS 1,000 ML 999 ML IV CONT ×2 (16:01→20:19)
--- NOTE | 2025-01-21 16:10 | ED_ITS ---
HPI - General Adult General Chief complaint: Weakness <Cachorro Bradford MD - Last Filed: 01/22/25 10:10> Stated complaint: UTI, ELEVATED BP,DECREASED APPETITE, DIZZINESS <Cachorro Bradford MD - Last Filed: 01/22/25 10:10> Time Seen by Provider: 01/21/25 15:32 <Cachorro Bradford MD - Last Filed: 01/22/25 10:10> History of Present Illness HPI narrative: 69-year-old female returns to the emergency department for evaluation for worsening generalized weakness. Patient was evaluated emergency department on 01/14 was diagnosed with urinary tract infection. At that time patient was treated with a g of IV Rocephin and was discharged home with p.o. Keflex. Patient is still taking the antibiotic. Family states the patient has had decreased p.o. intake and has been complaining of some lower abdominal pain. Patient denies any pain with urination but does have suprapubic tenderness to palpation. Family states the patient also has some increased confusion compared to her baseline confusion. At time of evaluation patient states she feels well enough to be discharged to home and is in no apparent distress. <Cachorro Bradford MD - Last Filed: 01/22/25 10:10> Related Data Home medications: Home Medications ?Medication ?Instructions ?Recorded ?Confirmed ?Last Taken ?Type amlodipine 10 mg tablet 10 mg PO DAILY 01/22/25 01/22/25 Unknown History atorvastatin 20 mg tablet 20 mg PO DAILY 01/22/25 01/22/25 Unknown History carvedilol 12.5 mg tablet 12.5 mg PO BID 01/22/25 01/22/25 Unknown History dapagliflozin propanediol 10 mg 10 mg PO DAILY 01/22/25 01/22/25 Unknown History tablet (Farxiga) <Cachorro Bradford MD - Last Filed: 01/22/25 10:10> Allergies/adverse reactions: Allergies Allergy/AdvReac Type Severity Reaction Status Date / Time No Known Allergies Allergy Verified 01/21/25 14:15 <Cahcorro Bradford MD - Last Filed: 01/22/25 10:10> Review of Systems 2 Review of Systems: All systems reviewed & are unremarkable except as noted in HPI and below <Cachorro Bradford MD - Last Filed: 01/22/25 10:10> [facility] Social History Social History: Social History Smoking status: Former smoker Tobacco type: cigarettes Alcohol intake: never Substance use: never Lack of Transportation: No Lack of Food: Never True Current Housing: I Have Housing Concerned About Future Housing: No Difficulty Paying Gas/Electric Bills: No Difficulty Paying for Meds: No Currently Unemployed: No Education: High School Diploma/GED Difficulty w/ Childcare or Family Care: No Spiritual care concerns: No (Roman Catholic) <Cachorro Bradford MD - Last Filed: 01/22/25 10:10> Exam 2 Narrative: APPEARANCE: Well appearing, no pain, no distress, well-nourished. HEAD: normocephalic, atraumatic. EYES: PERRLA/EOMI, conjunctivae clear. NOSE: Normal no drainage EARS:TMS clear with good light reflex. THROAT: Pharynx clear, no exudate. NECK: Supple. No adenopathy, no masses. RESPIRATORY: Airway patent, respirations nonlabored. Clear to auscultation bilaterally, no rales, rhonchi, wheezing. CARDIOVASCULAR: Regular rate and rhythm without murmurs rubs or gallops. ABDOMINAL: Left upper quadrant abdominal tenderness to palpation and suprapubic tenderness to palpation MUSCULOSKELETAL: Moves all extremities. Strength/ROM intact, No edema, No calf tenderness. NEURO: Alert. Cranial nerves II through XII intact. Grossly intact SKIN: Warm, dry. Normal Color <Cachorro Bradford MD - Last Filed: 01/22/25 10:10> Course Course Emergency Course: Patient care signed over by previous provider pending discussion with [facility] transfer system as a potential transfer to [facility]. Spoke to Dr. Workman at [facility] who declined transfer given no indications for any escalation of therapy and this would be a lateral transfer. Patient has a pulmonary embolism with suspected source being iliac vein occlusion. Patient is on anticoagulation with heparin. CT shows mild hyperemia of the appendix wall but she has no white count, no fever, tachycardia or abdominal pain. No appendicoliths or other signs such as inflammatory changes. No tenderness in this area. No signs/symptoms or clinical concern of intra-abdominal pathology in this region and thus not clinically relevant. Spoke to the hospitalist Dr. Vail who accepted the patient to the IMU at this time. <Dru Starks MD - Last Filed: 01/21/25 20:56> Vital Signs Vital signs: Vital Signs Temperature 98.4 F 01/21/25 14:24 Pulse Rate 62 01/21/25 14:24 Respiratory Rate 18 01/21/25 14:24 Blood Pressure 142/86 H 01/21/25 14:24 Pulse Oximetry 100 01/21/25 14:24 Oxygen Delivery Room Air 01/21/25 14:24 Temperature 98.3 F 01/22/25 07:36 Pulse Rate 68 01/22/25 08:30 Respiratory Rate 16 01/22/25 07:36 Blood Pressure 129/84 01/22/25 07:36 Pulse Oximetry 100 01/22/25 07:36 Oxygen Delivery Room Air 01/22/25 04:00 <Cachorro Bradford MD - Last Filed: 01/22/25 10:10> Vital Signs Temperature 98.4 F 01/21/25 14:24 Pulse Rate 62 01/21/25 14:24 Respiratory Rate 18 01/21/25 14:24 Blood Pressure 142/86 H 01/21/25 14:24 Pulse Oximetry 100 01/21/25 14:24 Oxygen Delivery Room Air 01/21/25 14:24 Temperature 98.3 F 01/22/25 07:36 Pulse Rate 68 01/22/25 08:30 Respiratory Rate 16 01/22/25 07:36 Blood Pressure 129/84 01/22/25 07:36 Pulse Oximetry 100 01/22/25 07:36 Oxygen Delivery Room Air 01/22/25 04:00 <Dru Starks MD - Last Filed: 01/21/25 20:56> Medical Decision Making [facility] Narrative Medical decision making narrative: 69-year-old female presents to the emergency department for evaluation persistent generalized weakness with concerning for worsening urinary tract infection. Patient is currently afebrile with no leukocytosis and hemoglobin of 15.3. INR is 1.0 patient did have an elevated D-dimer of 2.06. No significant abnormalities on the patient's CMP, UA was positive for leukocytes esterase and high red blood cells with no bacteria. CT was ordered and does show evidence of a thrombus which than the right internal iliac vein, original read set external iliac vein. Ultrasound was ordered shows no evidence of DVT in the leg. CTA the chest was ordered to evaluate for high clot burden. CT was also concerning for possible cystitis and for possible appendicitis. Clinically patient does not appear to have sinusitis. Patient has no chest pain no abdominal pain. CT does show evidence of moderate clot burden with right heart strain. Case was discussed with our hospitalist and they do not feel comfortable putting the patient. Family prefers to be transferred to the [facility] system. Patient was started on heparin bolus and heparin infusion. I did discuss the case with the hospitalist Roberto Carlos and the initially declined the patient. The prefer the patient be transferred to higher level of care due to evidence of right heart strain. At time of sign-out transfer to [facility] was pending. Critical Care Procedure Note Authorized and Performed by: Cachorro Bradford Total critical care time: Approximately 36 minutes Due to a high probability of clinically significant, life threatening deterioration, the patient required my highest level of preparedness to intervene emergently and I personally spent this critical care time directly and personally managing the patient. This critical care time included obtaining a history; examining the patient; pulse oximetry; ordering and review of studies; arranging urgent treatment with development of a management plan; evaluation of patient's response to treatment; frequent reassessment; and, discussions with other providers. This critical care time was performed to assess and manage the high probability of imminent, life-threatening deterioration that could result in multi-organ failure. It was exclusive of separately billable procedures and treating other patients and teaching time. Please see MDM section and the rest of the note for further information on patient assessment and treatment. <Cachorro Bradford MD - Last Filed: 01/22/25 10:10> Differential Diagnosis Differential Diagnosis: Colitis, diverticulitis, UTI, ureteral calculi, pneumonia, pneumothorax, pulmonary embolism, DVT <Cachorro Bradford MD - Last Filed: 01/22/25 10:10> Vital Signs Vital Signs: Vital Signs Temperature 98.4 F 01/21/25 14:24 Pulse Rate 62 01/21/25 14:24 Respiratory Rate 18 01/21/25 14:24 Blood Pressure 142/86 H 01/21/25 14:24 Pulse Oximetry 100 01/21/25 14:24 Oxygen Delivery Room Air 01/21/25 14:24 Temperature 98.3 F 01/22/25 07:36 Pulse Rate 68 01/22/25 08:30 Respiratory Rate 16 01/22/25 07:36 Blood Pressure 129/84 01/22/25 07:36 Pulse Oximetry 100 01/22/25 07:36 Oxygen Delivery Room Air 01/22/25 04:00 <Cachorro Bradford MD - Last Filed: 01/22/25 10:10> Vital Signs Temperature 98.4 F 01/21/25 14:24 Pulse Rate 62 01/21/25 14:24 Respiratory Rate 18 01/21/25 14:24 Blood Pressure 142/86 H 01/21/25 14:24 Pulse Oximetry 100 01/21/25 14:24 Oxygen Delivery Room Air 01/21/25 14:24 Temperature 98.3 F 01/22/25 07:36 Pulse Rate 68 01/22/25 08:30 Respiratory Rate 16 01/22/25 07:36 Blood Pressure 129/84 01/22/25 07:36 Pulse Oximetry 100 01/22/25 07:36 Oxygen Delivery Room Air 01/22/25 04:00 <Dru Starks MD - Last Filed: 01/21/25 20:56> Lab Data Result diagrams: 01/22/25 03:41 01/22/25 03:41 <Cachorro Bradford MD - Last Filed: 01/22/25 10:10> Labs: Lab Results 01/21/25 01/21/25 01/21/25 Range/Units 16:04 16:04 17:10 WBC 6.4 (4.5-10.0) K/mm3 RBC 5.32 (4.2-5.4) M/mm3 Hgb 15.3 H (12.0-15.0) g/dL Hct 47.2 H (37.0-47.0) % MCV 88.7 (80-100) fl MCH 28.8 (26-34) pg MCHC 32.4 (32-36) g/dl RDW 13.2 (11.5-14.5) % Plt Count 93 L (150-375) k/mm3 MPV 12.6 H (7.4-10.4) fl Immature Gran % (Auto) 0.3 (0-0.5) % Neut % (Auto) 68.0 (45.5-73.1) % Lymph % (Auto) 22.1 (18.3-44.2) % [place] % (Auto) 6.2 (2.6-8.5) % Eos % (Auto) 2.8 (0-4.4) % Baso % (Auto) 0.6 (0.2-1.2) % Lymph # (Auto) 1.42 (0.9-3.2) K/mm3 [place] # (Auto) 0.4 (0.1-0.6) K/mm3 Eos # (Auto) 0.2 (0-0.3) K/mm3 Baso # (Auto) 0.0 (0.0-0.1) K/mm3 Abs Immat Gran (auto) 0.02 (0.00-0.031) K/mm3 Absolute Neuts (auto) 4.4 (1.3-6.7) K/mm3 Absolute Nucleated RBC 0.000 (0.0-0.012) K/mm3 Nucleated RBC % 0.0 (0.0-0.2) % % Immature Plt Fraction 9.3 (0.9-11.2) % PT 13.2 (11.1-14.7) Seconds INR 1.0 APTT 32.2 (22.3-36.8) Seconds D-Dimer 2.06 H Cancelled (<0.48) ug/mL Sodium 137 (137-145) mmol/L Potassium 4.4 (3.4-5.0) mmol/L Chloride 105 (98-107) mmol/L Carbon Dioxide 26 (22-30) mmol/L Anion Gap 6 (4-12) mmol/L BUN 16 (7-17) mg/dL Creatinine 1.71 H (0.7-1.0) mg/dL Estim Creat Clear Calc Not Reportable Estimated GFR 30 L (59 - ) Glucose 97 (65-110) mg/dL Lactic Acid 0.8 (0.7-2.0) mmol/L Calcium 9.9 (8.4-10.2) mg/dL Total Bilirubin 0.8 (0.2-1.3) mg/dL AST 25 (14-36) U/L ALT 19 (6-35) U/L Alkaline Phosphatase 137 H (38-126) U/L Troponin I 0.012 (0.000-0.034) ng/mL C-Reactive Protein < 0.5 (<1.0) mg/dL Total Protein 8.0 (6.3-8.2) g/dL Albumin 4.4 (3.5-5.1) g/dL Lipase 219 (23-300) U/L Urine Color Yellow (Yellow) Urine Appearance Clear (Clear) Urine pH 7.0 (5.0-9.0) Ur Specific Boss 1.012 (1.001-1.035) Urine Protein Trace (Negative) mg/dL Urine Glucose (UA) 2+ H (Negative) mg/dL Urine Ketones Negative (Negative) mg/dL Ur Blood (Man) Negative (Negative) Urine Nitrate Negative (Negative) Urine Bilirubin Negative (Negative) Urine Urobilinogen 0.2 (<2.0) mg/dL Leukocyte Esterase Rfl 1+ H (Negative) KELSIE/UL Urine RBC 11-20 H (0-2) /hpf Urine WBC 0-5 (0-3) /hpf Ur Squamous Epith Cells None seen (Few) /hpf Urine Bacteria None seen /hpf Urine Casts 0-2 Urine Yeast (Budding) Present H (None) /hpf <Cachorro Bradford MD - Last Filed: 01/22/25 10:10> Lab Results 01/21/25 01/21/25 01/21/25 Range/Units 16:04 16:04 17:10 WBC 6.4 (4.5-10.0) K/mm3 RBC 5.32 (4.2-5.4) M/mm3 Hgb 15.3 H (12.0-15.0) g/dL Hct 47.2 H (37.0-47.0) % MCV 88.7 (80-100) fl MCH 28.8 (26-34) pg MCHC 32.4 (32-36) g/dl RDW 13.2 (11.5-14.5) % Plt Count 93 L (150-375) k/mm3 MPV 12.6 H (7.4-10.4) fl Immature Gran % (Auto) 0.3 (0-0.5) % Neut % (Auto) 68.0 (45.5-73.1) % Lymph % (Auto) 22.1 (18.3-44.2) % [place] % (Auto) 6.2 (2.6-8.5) % Eos % (Auto) 2.8 (0-4.4) % Baso % (Auto) 0.6 (0.2-1.2) % Lymph # (Auto) 1.42 (0.9-3.2) K/mm3 [place] # (Auto) 0.4 (0.1-0.6) K/mm3 Eos # (Auto) 0.2 (0-0.3) K/mm3 Baso # (Auto) 0.0 (0.0-0.1) K/mm3 Abs Immat Gran (auto) 0.02 (0.00-0.031) K/mm3 Absolute Neuts (auto) 4.4 (1.3-6.7) K/mm3 Absolute Nucleated RBC 0.000 (0.0-0.012) K/mm3 Nucleated RBC % 0.0 (0.0-0.2) % % Immature Plt Fraction 9.3 (0.9-11.2) % PT 13.2 (11.1-14.7) Seconds INR 1.0 APTT 32.2 (22.3-36.8) Seconds D-Dimer 2.06 H Cancelled (<0.48) ug/mL Sodium 137 (137-145) mmol/L Potassium 4.4 (3.4-5.0) mmol/L Chloride 105 (98-107) mmol/L Carbon Dioxide 26 (22-30) mmol/L Anion Gap 6 (4-12) mmol/L BUN 16 (7-17) mg/dL Creatinine 1.71 H (0.7-1.0) mg/dL Estim Creat Clear Calc Not Reportable Estimated GFR 30 L (59 - ) Glucose 97 (65-110) mg/dL Lactic Acid 0.8 (0.7-2.0) mmol/L Calcium 9.9 (8.4-10.2) mg/dL Total Bilirubin 0.8 (0.2-1.3) mg/dL AST 25 (14-36) U/L ALT 19 (6-35) U/L Alkaline Phosphatase 137 H (38-126) U/L Troponin I 0.012 (0.000-0.034) ng/mL C-Reactive Protein < 0.5 (<1.0) mg/dL Total Protein 8.0 (6.3-8.2) g/dL Albumin 4.4 (3.5-5.1) g/dL Lipase 219 (23-300) U/L Urine Color Yellow (Yellow) Urine Appearance Clear (Clear) Urine pH 7.0 (5.0-9.0) Ur Specific Boss 1.012 (1.001-1.035) Urine Protein Trace (Negative) mg/dL Urine Glucose (UA) 2+ H (Negative) mg/dL Urine Ketones Negative (Negative) mg/dL Ur Blood (Man) Negative (Negative) Urine Nitrate Negative (Negative) Urine Bilirubin Negative (Negative) Urine Urobilinogen 0.2 (<2.0) mg/dL Leukocyte Esterase Rfl 1+ H (Negative) KELSIE/UL Urine RBC 11-20 H (0-2) /hpf Urine WBC 0-5 (0-3) /hpf Ur Squamous Epith Cells None seen (Few) /hpf Urine Bacteria None seen /hpf Urine Casts 0-2 Urine Yeast (Budding) Present H (None) /hpf <Dru Starks MD - Last Filed: 01/21/25 20:56> Critical Care Time Critical Care Time Critical Care Time: Yes <Cachorro Bradford MD - Last Filed: 01/22/25 10:10> Total Critical Care Time: 36 <Cachorro Bradford MD - Last Filed: 01/22/25 10:10> Discharge Plan Discharge Clinical Impression: Pulmonary embolism, Iliac vein thrombosis, right <Cachorro Bradford MD - Last Filed: 01/22/25 10:10> Patient Disposition: Acute Care Hospital <Cachorro Bradford MD - Last Filed: 01/22/25 10:10> Condition: Serious <Cachorro Bradford MD - Last Filed: 01/22/25 10:10> Time of Disposition: 20:56 <Cachorro Bradford MD - Last Filed: 01/22/25 10:10> 20:56 <Dru Starks MD - Last Filed: 01/21/25 20:56>
[2025-01-21 16:18] LABS: Hematocrit 47.2 % (37.0-47.0); Hemoglobin 15.3 g/dL (12.0-15.0); Immature Granulocyte Percent A 0.3 % (0-0.5); Immature Platelet Fraction Pct 9.3 % (0.9-11.2); Lymphocytes Absolute Auto 1.42 K/mm3 (0.9-3.2); Mean Corpuscular HGB Conc 32.4 g/dl (32-36); Mean Corpuscular Hemoglobin 28.8 pg (26-34); Mean Corpuscular Volume 88.7 fl (80-100); Nucleated Red Blood Cells Absolute Auto 0.000 K/mm3 (0.0-0.012); Nucleated Red Blood Cells Perc 0.0 % (0.0-0.2); Platelet Count Result 93 k/mm3 (150-375); Red Blood Count 5.32 M/mm3 (4.2-5.4); White Blood Count 6.4 K/mm3 (4.5-10.0)
[2025-01-21 16:22] LABS: Alanine Aminotransferase 19 U/L (6-35); Albumin Level 4.4 g/dL (3.5-5.1); Alkaline Phosphatase 137 U/L (38-126); Anion Gap 6 mmol/L (4-12); Aspartate Amino Transferase 25 U/L (14-36); Bilirubin,Total 0.8 mg/dL (0.2-1.3); Blood Urea Nitrogen 16 mg/dL (7-17); Calcium 9.9 mg/dL (8.4-10.2); Carbon Dioxide 26 mmol/L (22-30); Chloride 105 mmol/L (98-107); Estimated Glomerular Filt Rate 30; Glucose 97 mg/dL (65-110); Lipase 219 U/L (23-300); Potassium 4.4 mmol/L (3.4-5.0); Sodium 137 mmol/L (137-145); Total Protein 8.0 g/dL (6.3-8.2)
[2025-01-21 16:30] LABS: INR 1.0; Prothrombin Time 13.2 Seconds (11.1-14.7)
[2025-01-21 16:32] LABS: Partial Thromboplastin Time 32.2 Seconds (22.3-36.8)
[2025-01-21 16:41] LABS: CRP < 0.5 mg/dL (<1.0)
[2025-01-21 17:37] LABS: Add Urine Microscopic? YES; Appearance Urine Clear (Clear); Budding Yeast Urine Present /hpf; Glucose Urine UA 2+ mg/dL (Negative); Leukocyte Esterase Ur 1+ LEU/UL (Negative); Nitrate Urine Negative (Negative); Non Pathogenic Casts 0-2; Specific Grav Ur 1.012 (1.001-1.035)
--- NOTE | 2025-01-21 20:15 | ECG_ITS ---
Test Date: 2025-01-21 20:36:25 Measurements Intervals [place] Rate: 61 P: 56 MT: 192 QRS: -42 QRSD: 146 T: 34 QT: 437 QTc: 443 Interpretive Statements SINUS RHYTHM POSSIBLE LEFT ATRIAL ENLARGEMENT RIGHT BUNDLE BRANCH BLOCK LEFT VENTRICULAR HYPERTROPHY INFERIOR INFARCT, AGE INDETERMINATE BASELINE ARTIFACT- I, II, AVR, V1 ABNORMAL ECG Compared to ECG 01/14/2025 12:31:09 HEART RATE HAS INCREASED POSSIBLE ISCHEMIA NO LONGER PRESENT Electronically Signed On 01-22-2025 08:02:26 CDT by Crispin Colby D.O.
[2025-01-21 20:44] LABS: Troponin I 0.012 ng/mL (0.000-0.034)
[2025-01-21] MEDS: HEPARIN SOD/D5W 100 UNITS/ML 25,000 UNITS/250 ML BAG 13 UNITS IV CONT (20:56)
--- NOTE | 2025-01-21 21:22 | PM.IMHP ---
H&P: HPI History of Present Illness Date/Time: 01/21/25 21:22 Chief Complaint: Pulmonary embolism and right internal iliac vein thrombosis Narrative: 69-year-old female with no significant past medical history presented to the ED due to a weak patient who was previously in the emergency department and was diagnosed with UTI on 0 2. Patient was discharged with cephalexin 500 mg p.o. b.i.d. for 7 days. Upon discharge from the ED, the family member reported the patient had not recovered and was still feeling weak. Today, an abdominal/pelvis CT was performed, which shows the right external iliac vein concerning venous thrombosis. The patient underwent chest/abdomen/pelvis CTA, which shows pulmonary embolism with possible right heart strain and redemonstration of right internal iliac vein thrombosis. Initially, I recommended that the patient be transferred for pulmonary embolism with possible right heart strain. The ED physician called [facility], but the transfer was declined. Patient will be admitted in the setting of pulmonary embolism and internal iliac vein thrombosis. Patient is currently on Eliquis. Hematology/oncology will be consulted. Patient H&H will be monitored. Echocardiogram will be performed in the a.m., along with thyroid ultrasound. During the evaluation patient daughter was present. She reports the patient use walker for ambulation. Patient was briefly in the [facility] from February 2024 to August 2024. After the discharge from the [facility] patient was followed by vocational rehab consultant/oncologist for thrombocytopenia but no obvious cause was found. Review of Systems Review of Systems: All systems reviewed & are unremarkable except as noted in HPI and below PMFSH Social History Social History Smoking status: Former smoker Tobacco type: cigarettes Alcohol intake: never Substance use: never Lack of Transportation: No Lack of Food: Never True Current Housing: I Have Housing Concerned About Future Housing: No Difficulty Paying Gas/Electric Bills: No Difficulty Paying for Meds: No Currently Unemployed: No Education: High School Diploma/GED Difficulty w/ Childcare or Family Care: No Spiritual care concerns: No (Buddhism) Meds Home Medications and Allergies Home Medications ?Medication ?Instructions ?Recorded ?Confirmed ?Type amlodipine 10 mg tablet 10 mg PO DAILY 01/22/25 01/22/25 History atorvastatin 20 mg tablet 20 mg PO DAILY 01/22/25 01/22/25 History carvedilol 12.5 mg tablet 12.5 mg PO BID 01/22/25 01/22/25 History dapagliflozin propanediol 10 mg 10 mg PO DAILY 01/22/25 01/22/25 History tablet (Farxiga) Allergies Allergy/AdvReac Type Severity Reaction Status Date / Time No Known Allergies Allergy Verified 01/21/25 14:15 Vital Signs Vital Signs - 24 hr 01/21/25 14:24 Temperature 98.4 F Pulse Rate 62 Respiratory Rate 18 Blood Pressure 142/86 H Pulse Oximetry 100 Oxygen Delivery Room Air Exam Narrative: APPEARANCE: Well appearing, no pain, no distress, well-nourished. HEAD: normocephalic, atraumatic. EYES: PERRLA/EOMI, conjunctivae clear. NOSE: Normal no drainage EARS:TMS clear with good light reflex. THROAT: Pharynx clear, no exudate. NECK: Supple. No adenopathy, no masses. RESPIRATORY: Airway patent, respirations nonlabored. Clear to auscultation bilaterally, no rales, rhonchi, wheezing. CARDIOVASCULAR: Regular rate and rhythm without murmurs rubs or gallops. ABDOMINAL: Left upper quadrant abdominal tenderness to palpation and suprapubic tenderness to palpation MUSCULOSKELETAL: Moves all extremities. Strength/ROM intact, No edema, No calf tenderness. NEURO: Alert. Cranial nerves II through XII intact. Grossly intact SKIN: Warm, dry. Normal Color H&P: Results Labs Labs: Short CBC 01/21/25 Range/Units 16:04 WBC 6.4 (4.5-10.0) K/mm3 Hgb 15.3 H (12.0-15.0) g/dL Hct 47.2 H (37.0-47.0) % Plt Count 93 L (150-375) k/mm3 [facility] 01/21/25 16:04 Sodium 137 Potassium 4.4 Chloride 105 Carbon Dioxide 26 BUN 16 Creatinine 1.71 H Glucose 97 Calcium 9.9 Cardiac Enzymes 01/21/25 Range/Units 16:04 Troponin I 0.012 (0.000-0.034) ng/mL Liver Function 01/21/25 Range/Units 16:04 Total Bilirubin 0.8 (0.2-1.3) mg/dL AST 25 (14-36) U/L ALT 19 (6-35) U/L Alkaline Phosphatase 137 H (38-126) U/L Albumin 4.4 (3.5-5.1) g/dL Urine 01/21/25 Range/Units 17:10 Urine Color Yellow (Yellow) Urine Appearance Clear (Clear) Urine pH 7.0 (5.0-9.0) Ur Specific [place] 1.012 (1.001-1.035) Urine Protein Trace (Negative) mg/dL Urine Glucose (UA) 2+ H (Negative) mg/dL Assessment and Plan Assessment and plan (1) Pulmonary embolism: Code(s): I26.99 - Other pulmonary embolism without acute cor pulmonale Status: Acute Assessment and Plan: -Chest CTA shows Acute right upper lobe segmental and right middle lobe segmental and right interlobar artery emboli. Moderate clot burden. Evidence of right heart strain. -currently on heparin -monitor platelet -monitor H&H -order echo a.m. to rule out right heart strain -consulted hematology/oncology (2) Iliac vein thrombosis, right: Code(s): I82.421 - Acute embolism and thrombosis of right iliac vein Status: Acute Assessment and Plan: Same as above (3) Enlarged thyroid gland: Code(s): E04.9 - Nontoxic goiter, unspecified Status: Acute Assessment and Plan: CT shows right thyroid and rhythm Ultrasound thyroid pending Order TSH, free T3-4 (4) HTN (hypertension): Code(s): I10 - Essential (primary) hypertension Status: Acute Assessment and Plan: Continue carvedilol 12.5 mg p.o. b.i.d. Continue amlodipine 10 mg p.o. q.d. Plan Code status: Full code DVT prophylaxis: Heparin Order HbA1c Hospitalist MIPS Advance Care Plan I have confirmed that the patient's Advanced Care Plan is present, code status is documented, or surrogate decision maker is listed in patient medical record.: Yes Medication Reconciliation I have utilized all available resources to obtain, update and review the patients current medications (includes all prescriptions, OTC, herbals, cannabis, and nutritional supplements).: Yes
[2025-01-22] VITALS (18 sets, daily range): BP systolic 108–132; BP diastolic 66–84; PULSE 50–80; RESP 15–28; TEMP 36.7–36.9; O2SAT 94–100; BMI 26.9
--- NOTE | 2025-01-22 00:20 | ADMGEN ---
This patient, Fabby Black, was admitted to IMU Room 205-01. Patient/family oriented to hospital policies and general routines including ID bracelet, bed and alarms, visiting hours, pain management, procedures, bathroom and other care routines, personal items, smoking policy, room service/diet, and visiting hours. Information on how to activate the Rapid Response Team has been discussed. Patient/Family are encouraged to report perceived risks to care and to ask questions if they do not understand what they are told or what they should do.
[2025-01-22 03:51] LABS: Hematocrit 43.5 % (37.0-47.0); Hemoglobin 14.2 g/dL (12.0-15.0); Immature Granulocyte Percent A 0.3 % (0-0.5); Lymphocytes Absolute Auto 1.54 K/mm3 (0.9-3.2); Mean Corpuscular HGB Conc 32.6 g/dl (32-36); Mean Corpuscular Hemoglobin 29.0 pg (26-34); Mean Corpuscular Volume 88.8 fl (80-100); Nucleated Red Blood Cells Absolute Auto 0.000 K/mm3 (0.0-0.012); Nucleated Red Blood Cells Perc 0.0 % (0.0-0.2); Platelet Count Result 103 k/mm3 (150-375); Red Blood Count 4.90 M/mm3 (4.2-5.4); White Blood Count 7.7 K/mm3 (4.5-10.0)
[2025-01-22 04:07] LABS: Alanine Aminotransferase 18 U/L (6-35); Albumin Level 3.6 g/dL (3.5-5.1); Alkaline Phosphatase 101 U/L (38-126); Anion Gap 7 mmol/L (4-12); Aspartate Amino Transferase 22 U/L (14-36); Bilirubin,Total 0.5 mg/dL (0.2-1.3); Blood Urea Nitrogen 18 mg/dL (7-17); Calcium 9.3 mg/dL (8.4-10.2); Carbon Dioxide 24 mmol/L (22-30); Chloride 108 mmol/L (98-107); Estimated CRCL calculation 33 ml/min; Estimated Glomerular Filt Rate 35; Glucose 160 mg/dL (65-110); Potassium 3.6 mmol/L (3.4-5.0); Sodium 139 mmol/L (137-145); Total Protein 6.6 g/dL (6.3-8.2)
[2025-01-22 04:35] LABS: Thyroid Stimulating Hormone Reflex 0.906 uIU/mL (0.465-4.68)
[2025-01-22 05:01] LABS: Hemoglobin A1C 5.5 % (<5.7)
[2025-01-22 06:06] LABS: Partial Thromboplastin Time > 200.0 Seconds (22.3-36.8)
--- NOTE | 2025-01-22 07:23 | P.PNIM_ITS ---
Progress Note: A&P Assessment and Plan (1) Pulmonary embolism: Code(s): I26.99 - Other pulmonary embolism without acute cor pulmonale Status: Acute Assessment and Plan: -Chest CTA shows Acute right upper lobe segmental and right middle lobe segmental and right interlobar artery emboli. Moderate clot burden. Original report reported evidence of right heart strain, but upon discussion with on-call radiologist this should read NO evidence of right heart strain. - troponin trend negative. BNP minimally elevated. - patient is asymptomatic with no chest pain or shortness of breath. -currently on heparin. Plan to transition to Eliquis. -monitor platelet -monitor H&H - cardio consulted, no current plans for intervention. Echo pending. -consulted hematology/oncology. (2) Iliac vein thrombosis, right: Code(s): I82.421 - Acute embolism and thrombosis of right iliac vein Status: Acute Assessment and Plan: - as seen on CTA - continue heparin drip as above (3) DARIN (acute kidney injury): Code(s): N17.9 - Acute kidney failure, unspecified Status: Acute Assessment and Plan: - Cr 1.7 on admission. Received IV fluids. Trended down to 1.4 this AM. - may have CKD? - monitor BMP - avoid nephrotoxins (4) Enlarged thyroid gland: Code(s): E04.9 - Nontoxic goiter, unspecified Status: Acute Assessment and Plan: -CT shows right thyroid mass -Ultrasound thyroid pending -TSH WNL (5) HTN (hypertension): Code(s): I10 - Essential (primary) hypertension Status: Acute Assessment and Plan: -Continue carvedilol 12.5 mg p.o. b.i.d. -Continue amlodipine 10 mg p.o. q.d. (6) Renal lesion: Code(s): N28.9 - Disorder of kidney and ureter, unspecified Status: Acute Assessment and Plan: - CT A/P on admission showed indeterminate lesion in the midpole of the right kidney - recommend outpatient MRI for further characterization (7) Thrombocytopenia: Code(s): D69.6 - Thrombocytopenia, unspecified Status: Acute Assessment and Plan: -Plts 103, improved from admission - monitor CBC (8) Urinary tract infection: Code(s): N39.0 - Urinary tract infection, site not specified Status: Inactive Assessment and Plan: - UA 1+ LE, 11-20 RBCs - recently diagnosed UTI 01/14. Urine culture with E coli sensitive to cephalosporins. Patient has 3 days of treatment left per daughter, will order. (9) Generalized weakness: Code(s): R53.1 - Weakness Status: Acute Assessment and Plan: - PT/OT consulted - daughter interested in SNF if patient qualifies (10) Dementia: Code(s): F03.90 - Unspecified dementia, unspecified severity, without behavioral disturbance, psychotic disturbance, mood disturbance, and anxiety Status: Acute Assessment and Plan: - has appointment with neurology next month - daughter states patient's memory is getting progressively worse - delirium precautions Plan Code status: Full code DVT prophylaxis: Heparin Subjective Date/time seen: 01/22/25 07:23 Interval history: 69-year-old female with no significant past medical history presented to the ED due to weakness, who was previously in the emergency department and was diagnosed with UTI on 01/14/25. Patient seen and examined at bedside. Patient very pleasant, feeling well this AM. Had some suprapubic pressure that has resolved. Denied chest pain or sh ortness of breath. Denied leg pain. Discussed plan of care with patient's daughter over the phone who expressed concerns about patient's worsening cognitive impairment and weakness. Review of Systems Review of Systems: All systems reviewed & are unremarkable except as noted in HPI and below Exam Narrative: General: NAD Eyes: EOMI ENT: neck supple Cardiovascular: Regular rate and rhythm Respiratory: Clear to auscultation, respirations even and unlabored on RA Gastrointestinal: Soft, non tender Genitourinary: no suprapubic tenderness Musculoskeletal: No edema. Strength 5/5 in BLEs. Skin: warm, dry Neuro: Alert. Psych: Mood appropriate Objective Data Vital Signs Vital Signs: Vital Signs - 24 hr 01/21/25 14:24 01/21/25 15:35 01/21/25 15:36 Temperature 98.4 F Pulse Rate 62 55 L 55 L Respiratory Rate 18 14 17 Blood Pressure 142/86 H 139/93 H Pulse Oximetry 100 99 100 Oxygen Delivery Room Air 01/21/25 15:45 01/21/25 16:00 01/21/25 16:15 Temperature Pulse Rate 47 L 59 L 56 L Respiratory Rate 11 L 13 14 Blood Pressure Pulse Oximetry 99 Oxygen Delivery 01/21/25 16:30 01/21/25 17:09 01/21/25 17:11 Temperature Pulse Rate 64 59 L Respiratory Rate 20 15 Blood Pressure 154/94 H Pulse Oximetry 99 100 Oxygen Delivery 01/21/25 17:15 01/21/25 17:16 01/21/25 17:30 Temperature Pulse Rate 61 59 L 64 Respiratory Rate 19 18 14 Blood Pressure 150/86 H Pulse Oximetry 99 100 Oxygen Delivery 01/21/25 17:45 01/21/25 18:00 01/21/25 18:01 Temperature Pulse Rate 58 L 63 63 Respiratory Rate 19 24 H 16 Blood Pressure 141/91 H Pulse Oximetry Oxygen Delivery 01/21/25 18:25 01/21/25 18:30 01/21/25 18:46 Temperature Pulse Rate 65 71 64 Respiratory Rate 27 H 19 14 Blood Pressure 162/101 H Pulse Oximetry 99 100 Oxygen Delivery 01/21/25 18:47 01/21/25 19:00 01/21/25 19:15 Temperature Pulse Rate 65 60 65 Respiratory Rate 12 19 23 H Blood Pressure Pulse Oximetry Oxygen Delivery 01/21/25 19:30 01/21/25 19:31 01/21/25 19:52 Temperature Pulse Rate 64 68 Respiratory Rate 16 26 H Blood Pressure 156/93 H Pulse Oximetry 98 Oxygen Delivery 01/21/25 20:00 01/21/25 20:15 01/21/25 20:24 Temperature Pulse Rate 70 66 Respiratory Rate 18 23 H Blood Pressure 157/95 H Pulse Oximetry 99 100 Oxygen Delivery 01/21/25 20:30 01/21/25 20:31 01/21/25 20:45 Temperature Pulse Rate 65 64 61 Respiratory Rate 14 15 18 Blood Pressure 160/92 H Pulse Oximetry 100 100 Oxygen Delivery 01/21/25 21:00 01/21/25 21:15 01/21/25 21:16 Temperature Pulse Rate 63 59 L 64 Respiratory Rate 15 16 16 Blood Pressure 158/93 H Pulse Oximetry 99 99 Oxygen Delivery 01/21/25 21:30 01/21/25 21:45 01/21/25 22:04 Temperature Pulse Rate 62 69 60 Respiratory Rate 12 15 15 Blood Pressure Pulse Oximetry 100 100 Oxygen Delivery 01/21/25 22:15 01/21/25 22:31 01/21/25 22:45 Temperature Pulse Rate 55 L 69 58 L Respiratory Rate 18 11 L 22 H Blood Pressure Pulse Oximetry 100 100 100 Oxygen Delivery 01/21/25 23:01 01/21/25 23:22 01/21/25 23:40 Temperature 98.1 F 98.0 F Pulse Rate 56 L 84 63 Respiratory Rate 20 19 20 Blood Pressure 152/96 H 150/103 H Pulse Oximetry 100 98 100 Oxygen Delivery 01/21/25 23:45 01/22/25 00:00 01/22/25 00:00 Temperature Pulse Rate 68 Respiratory Rate Blood Pressure Pulse Oximetry Oxygen Delivery Room Air Room Air 01/22/25 02:00 01/22/25 04:00 01/22/25 04:00 Temperature Pulse Rate 63 61 Respiratory Rate Blood Pressure Pulse Oximetry Oxygen Delivery Room Air 01/22/25 05:08 01/22/25 06:00 Temperature 98.1 F Pulse Rate 60 57 L Respiratory Rate 15 Blood Pressure 121/78 Pulse Oximetry 94 Oxygen Delivery Intake/Output Intake/Output: Intake & Output 01/19/25 01/20/25 01/21/25 01/22/25 23:59 23:59 23:59 23:59 Intake Total 1999 119.4 Balance 1999 119.4 Meds/Results Medications: Active Medications Generic Name Dose Route Start Last Admin Trade Name Freq PRN Reason Stop Dose Admin Acetaminophen 650 mg 01/21/25 20:53 Acetaminophen 325 Mg Tablet PO Q4H PRN Mild Pain (1-3) or Fever Amlodipine Besylate 10 mg 01/22/25 09:00 Amlodipine Besylate 10 Mg Tablet PO DAILY [facility] Atorvastatin Calcium 20 mg 01/22/25 09:00 Atorvastatin 20 Mg Tablet PO DAILY [facility] Carvedilol 12.5 mg 01/22/25 09:00 Carvedilol 12.5 Mg Tablet PO Q12HR [facility] Heparin Sodium (Porcine) 6,000 units 01/21/25 20:36 Heparin Sodium 5,000 Units/Ml Vial IV PUSH PRN PRN aPTT less than 55 seconds Heparin Sodium (Porcine) 3,000 units 01/21/25 20:36 Heparin Sodium 5,000 Units/Ml Vial IV PUSH PRN PRN aPTT 55 - 70 seconds Heparin Sodium/Dextrose 25,000 units in 250 mls @ 13 mls/hr 01/21/25 20:40 01/22/25 07:17 Heparin Sodium/D5w 100 Units/Ml IV CONT 1,100 units/hr .[id number] JOVAN 11 mls/hr Titration Protocol 1,300 UNITS/HR Ondansetron HCl 4 mg 01/21/25 20:53 Ondansetron Inj 4 Mg/2 Ml Vial IV PUSH Q4H PRN Nausea Perflutren Lipid Microsphere 0 ml 01/21/25 20:56 Perflutren Lipid Microspheres 1.5 Ml Vial Diluted To 10 Ml Total Volume IV PUSH 01/24/25 20:56 ONCE PRN adequate visualization Protocol Radiology Results: ITS Impressions Abdomen/Pelvis CT 01/21/25 17:15 IMPRESSION: Mild esophagitis/gastritis. Indeterminate density 1.6 cm right midpole renal lesion. Recommend timely outpatient MRI or CT without and with contrast for further characterization. Minimal dilation of the appendix with wall hyperemia, no inflammatory changes, these findings may be normal for this patient or represent early acute appendicitis in the appropriate clinical context. Filling defect in the right external iliac vein concerning for venous thrombosis. Low density in the superior portion of the inferior vena cava may represent a column of unenhanced venous blood or an additional site of thrombosis. Mild wall thickening of the urinary bladder may represent thickening from incomplete distention or cystitis. ADDENDUM: 01/21/25 1909 The FINDINGS and IMPRESSION sections contain a voice recognition error relative to the sidedness of the iliac vein thrombosis. The thrombus is present in the r ight INTERNAL iliac vein. This addendum was discussed with Dr. Bradford at 7:05 PM on 01/21/2025. Venous Doppler Study 01/21/25 18:59 IMPRESSION: Patent right lower extremity veins. No evidence of deep venous thrombosis. Chest/Abdomen/Pelvis CTA 01/21/25 19:52 IMPRESSION: Acute right upper lobe segmental and right middle lobe segmental and right interlobar artery emboli. Moderate clot burden. Evidence of right heart strain. Patchy enhancement versus artifact in the left ventricular muscle, artifact is favored. Correlate with EKG and cardiac enzymes. Masslike enlargement of the right thyroid gland, consider thyroid ultrasound for further evaluation. Scattered sub-6 mm pulmonary nodules, which require no additional evaluation unless patient is at high risk in which case consider an optional CT in one year. Limited CT venogram of the abdomen and pelvis. The IVC is flattened, without visualized filling defect indicating the prior findings in the IVC were likely artifactual. Redemonstration of the right internal iliac vein thrombosis. Unchanged indeterminate lesion in the right kidney. Unchanged mild dilation and wall hyperemia in the appendix. Unchanged mild esophagitis/gastritis. The bladder is now fully distended without evidence of wall thickening or inflammatory change. Results reported telephonically to Dr. Bradford by Dr. Villatoro at 8:12 PM on 01/21/2025. Labs Labs: Laboratory Results - last 24 hr 01/21/25 01/21/25 01/21/25 16:04 16:04 17:10 WBC 6.4 RBC 5.32 Hgb 15.3 H Hct 47.2 H MCV 88.7 MCH 28.8 MCHC 32.4 RDW 13.2 Plt Count 93 L MPV 12.6 H Immature Gran % (Auto) 0.3 Neut % (Auto) 68.0 Lymph % (Auto) 22.1 [place] % (Auto) 6.2 Eos % (Auto) 2.8 Baso % (Auto) 0.6 Lymph # (Auto) 1.42 [place] # (Auto) 0.4 Eos # (Auto) 0.2 Baso # (Auto) 0.0 Abs Immat Gran (auto) 0.02 Absolute Neuts (auto) 4.4 Absolute Nucleated RBC 0.000 Nucleated RBC % 0.0 % Immature Plt Fraction 9.3 PT 13.2 INR 1.0 APTT 32.2 D-Dimer 2.06 H Cancelled Sodium 137 Potassium 4.4 Chloride 105 Carbon Dioxide 26 Anion Gap 6 BUN 16 Creatinine 1.71 H Estim Creat Clear Calc Not Reportable Estimated GFR 30 L Glucose 97 Hemoglobin A1c Lactic Acid 0.8 Calcium 9.9 Total Bilirubin 0.8 AST 25 ALT 19 Alkaline Phosphatase 137 H Troponin I 0.012 C-Reactive Protein < 0.5 Total Protein 8.0 Albumin 4.4 Lipase 219 TSH (Reflex) Urine Color Yellow Urine Appearance Clear Urine pH 7.0 Ur Specific [place] 1.012 Urine Protein Trace Urine Glucose (UA) 2+ H Urine Ketones Negative Ur Blood (Man) Negative Urine Nitrate Negative Urine Bilirubin Negative Urine Urobilinogen 0.2 Leukocyte Esterase Rfl 1+ H Urine RBC 11-20 H Urine WBC 0-5 Ur Squamous Epith Cells None seen Urine Bacteria None seen Urine Casts 0-2 Urine Yeast (Budding) Present H 01/22/25 01/22/25 01/22/25 03:36 03:41 05:18 WBC 7.7 RBC 4.90 Hgb 14.2 Hct 43.5 MCV 88.8 MCH 29.0 MCHC 32.6 RDW 13.2 Plt Count 103 L MPV 12.8 H Immature Gran % (Auto) 0.3 Neut % (Auto) 69.1 Lymph % (Auto) 20.1 [place] % (Auto) 7.2 Eos % (Auto) 2.6 Baso % (Auto) 0.7 Lymph # (Auto) 1.54 [place] # (Auto) 0.6 Eos # (Auto) 0.2 Baso # (Auto) 0.1 Abs Immat Gran (auto) 0.02 Absolute Neuts (auto) 5.3 Absolute Nucleated RBC 0.000 Nucleated RBC % 0.0 % Immature Plt Fraction PT INR APTT Cancelled D-Dimer Sodium 139 Potassium 3.6 Chloride 108 H Carbon Dioxide 24 Anion Gap 7 BUN 18 H Creatinine 1.48 H Estim Creat Clear Calc 33 Estimated GFR 35 L Glucose 160 H Hemoglobin A1c 5.5 Lactic Acid Calcium 9.3 Total Bilirubin 0.5 AST 22 ALT 18 Alkaline Phosphatase 101 Troponin I C-Reactive Protein Total Protein 6.6 Albumin 3.6 Lipase TSH (Reflex) 0.906 Urine Color Urine Appearance Urine pH Ur Specific [place] Urine Protein Urine Glucose (UA) Urine Ketones Ur Blood (Man) Urine Nitrate Urine Bilirubin Urine Urobilinogen Leukocyte Esterase Rfl Urine RBC Urine WBC Ur Squamous Epith Cells Urine Bacteria Urine Casts Urine Yeast (Budding) 01/22/25 05:18 WBC RBC Hgb Hct MCV MCH MCHC RDW Plt Count MPV Immature Gran % (Auto) Neut % (Auto) Lymph % (Auto) [place] % (Auto) Eos % (Auto) Baso % (Auto) Lymph # (Auto) [place] # (Auto) Eos # (Auto) Baso # (Auto) Abs Immat Gran (auto) Absolute Neuts (auto) Absolute Nucleated RBC Nucleated RBC % % Immature Plt Fraction PT INR APTT > 200.0 H* D-Dimer Sodium Potassium Chloride Carbon Dioxide Anion Gap BUN Creatinine Estim Creat Clear Calc Estimated GFR Glucose Hemoglobin A1c Lactic Acid Calcium Total Bilirubin AST ALT Alkaline Phosphatase Troponin I C-Reactive Protein Total Protein Albumin Lipase TSH (Reflex) Urine Color Urine Appearance Urine pH Ur Specific [place] Urine Protein Urine Glucose (UA) Urine Ketones Ur Blood (Man) Urine Nitrate Urine Bilirubin Urine Urobilinogen Leukocyte Esterase Rfl Urine RBC Urine WBC Ur Squamous Epith Cells Urine Bacteria Urine Casts Urine Yeast (Budding) Quality VTE Prophylaxis VTE prophylaxis: pharmacologic ordered
[2025-01-22 08:04] LABS: NT Pro B Type Natriuretic Pept 676 pg/mL (19.9-100); Troponin I 0.032 ng/mL (0.000-0.034)
[2025-01-22] MEDS: ATORVASTATIN 20 MG TABLET PO (08:30)
[2025-01-22 11:22] LABS: Troponin I 0.029 ng/mL (0.000-0.034)
--- NOTE | 2025-01-22 12:29 | PM.CNCAR ---
Assessment and Plan Assessment and plan (1) Pulmonary embolism: Code(s): I26.99 - Other pulmonary embolism without acute cor pulmonale Status: Acute Plan Acute right iliac vein thrombosis DVT Pulmonary embolism Hypertension controlled Plan Heparin with a plan to shift to oral anticoagulation Eliquis Transthoracic echocardiogram for evaluation of right ventricular strain and PA pressure Work up for underlying malignancy Continue amlodipine and carvedilol History of Present Illness History of Present Illness Consult date/time: 01/22/25 12:29 Reason For Visit: Pulmonary embolism, weakness Narrative: [age]-year-old female patient presents to the hospital was weakness that was generalized. She has recent hospital admission for UTI. On presentation she had abdominal and pelvic CT scan that suggestive of venous thrombosis this was confirmed with CT angiogram that revealed a right iliac vein thrombosis along with pulmonary embolism and possible right heart strain. Patient is denying any chest pain shortness of breath. She denied any swelling in her legs so it is clearly obvious that the right leg is swollen. She had no prior history of blood clots. Does history of thrombocytopenia. Review of Systems Review of Systems: All systems reviewed & are unremarkable except as noted in HPI and below PMFSH Social History Social History Smoking status: Former smoker Tobacco type: cigarettes Alcohol intake: never Substance use: never Lack of Transportation: No Lack of Food: Never True Current Housing: I Have Housing Concerned About Future Housing: No Difficulty Paying Gas/Electric Bills: No Difficulty Paying for Meds: No Currently Unemployed: No Education: High School Diploma/GED Difficulty w/ Childcare or Family Care: No Spiritual care concerns: No (Faith) Meds Home Medications and Allergies Home Medications ?Medication ?Instructions ?Recorded ?Confirmed ?Type amlodipine 10 mg tablet 10 mg PO DAILY 01/22/25 01/22/25 History atorvastatin 20 mg tablet 20 mg PO DAILY 01/22/25 01/22/25 History carvedilol 12.5 mg tablet 12.5 mg PO BID 01/22/25 01/22/25 History dapagliflozin propanediol 10 mg 10 mg PO DAILY 01/22/25 01/22/25 History tablet (Farxiga) Allergies Allergy/AdvReac Type Severity Reaction Status Date / Time No Known Allergies Allergy Verified 01/21/25 14:15 Vital Signs Vital Signs - 24 hr 01/21/25 14:24 01/21/25 15:35 01/21/25 15:36 Temperature 36.9 C Pulse Rate 62 55 L 55 L Respiratory Rate 18 14 17 Blood Pressure 142/86 H 139/93 H Pulse Oximetry 100 99 100 Oxygen Delivery Room Air 01/21/25 15:45 01/21/25 16:00 01/21/25 16:15 Temperature Pulse Rate 47 L 59 L 56 L Respiratory Rate 11 L 13 14 Blood Pressure Pulse Oximetry 99 Oxygen Delivery 01/21/25 16:30 01/21/25 17:09 01/21/25 17:11 Temperature Pulse Rate 64 59 L Respiratory Rate 20 15 Blood Pressure 154/94 H Pulse Oximetry 99 100 Oxygen Delivery 01/21/25 17:15 01/21/25 17:16 01/21/25 17:30 Temperature Pulse Rate 61 59 L 64 Respiratory Rate 19 18 14 Blood Pressure 150/86 H Pulse Oximetry 99 100 Oxygen Delivery 01/21/25 17:45 01/21/25 18:00 01/21/25 18:01 Temperature Pulse Rate 58 L 63 63 Respiratory Rate 19 24 H 16 Blood Pressure 141/91 H Pulse Oximetry Oxygen Delivery 01/21/25 18:25 01/21/25 18:30 01/21/25 18:46 Temperature Pulse Rate 65 71 64 Respiratory Rate 27 H 19 14 Blood Pressure 162/101 H Pulse Oximetry 99 100 Oxygen Delivery 01/21/25 18:47 01/21/25 19:00 01/21/25 19:15 Temperature Pulse Rate 65 60 65 Respiratory Rate 12 19 23 H Blood Pressure Pulse Oximetry Oxygen Delivery 01/21/25 19:30 01/21/25 19:31 01/21/25 19:52 Temperature Pulse Rate 64 68 Respiratory Rate 16 26 H Blood Pressure 156/93 H Pulse Oximetry 98 Oxygen Delivery 01/21/25 20:00 01/21/25 20:15 01/21/25 20:24 Temperature Pulse Rate 70 66 Respiratory Rate 18 23 H Blood Pressure 157/95 H Pulse Oximetry 99 100 Oxygen Delivery 01/21/25 20:30 01/21/25 20:31 01/21/25 20:45 Temperature Pulse Rate 65 64 61 Respiratory Rate 14 15 18 Blood Pressure 160/92 H Pulse Oximetry 100 100 Oxygen Delivery 01/21/25 21:00 01/21/25 21:15 01/21/25 21:16 Temperature Pulse Rate 63 59 L 64 Respiratory Rate 15 16 16 Blood Pressure 158/93 H Pulse Oximetry 99 99 Oxygen Delivery 01/21/25 21:30 01/21/25 21:45 01/21/25 22:04 Temperature Pulse Rate 62 69 60 Respiratory Rate 12 15 15 Blood Pressure Pulse Oximetry 100 100 Oxygen Delivery 01/21/25 22:15 01/21/25 22:31 01/21/25 22:45 Temperature Pulse Rate 55 L 69 58 L Respiratory Rate 18 11 L 22 H Blood Pressure Pulse Oximetry 100 100 100 Oxygen Delivery 01/21/25 23:01 01/21/25 23:22 01/21/25 23:40 Temperature 36.7 C 36.7 C Pulse Rate 56 L 84 63 Respiratory Rate 20 19 20 Blood Pressure 152/96 H 150/103 H Pulse Oximetry 100 98 100 Oxygen Delivery 01/21/25 23:45 01/22/25 00:00 01/22/25 00:00 Temperature Pulse Rate 68 Respiratory Rate Blood Pressure Pulse Oximetry Oxygen Delivery Room Air Room Air 01/22/25 02:00 01/22/25 04:00 01/22/25 04:00 Temperature Pulse Rate 63 61 Respiratory Rate Blood Pressure Pulse Oximetry Oxygen Delivery Room Air 01/22/25 05:08 01/22/25 06:00 01/22/25 07:36 Temperature 36.7 C 36.8 C Pulse Rate 60 57 L 60 Respiratory Rate 15 16 Blood Pressure 121/78 129/84 Pulse Oximetry 94 100 Oxygen Delivery 01/22/25 08:00 01/22/25 08:00 01/22/25 08:30 Temperature Pulse Rate 76 68 Respiratory Rate Blood Pressure Pulse Oximetry 100 Oxygen Delivery Room Air 01/22/25 10:00 01/22/25 12:00 Temperature 36.9 C Pulse Rate 53 L 58 L Respiratory Rate 16 Blood Pressure 108/67 Pulse Oximetry 100 Oxygen Delivery Exam Const: General: comfortable and no acute distress Other: Able to lie flat HENMT: Face/Nose/Sinus: Normal nares present and no epistaxis Mouth: Yes moist mucous membranes Eyes: Sclera: sclerae normal Pupils: Equal, round and reactive pupils present Neck: Neck: supple and no JVD Carotids: no bruits Resp: Auscultation: clear to auscultation bilaterally and lung sounds not diminished Other: No chest wall tenderness Cardio: Rate: regular rate Rhythm: regular rhythm Heart sounds: no gallops, no murmurs and no rubs GI: GI Palp: Yes Soft to palpation and No Tenderness to palpation present (GI) Auscultation: normal bowel sounds Skin: General skin exam: normal color, rashes and/or lesions noted and no erythema Other: Warm Neuro: Cranial nerves: Yes Equal, round and reactive pupils present Speech: normal speech Other: No obvious focal deficit or facial asymmetry Extrem: General: no edema Other: Normal capillary refills Intact distal pulses. Right lower extremity edema Results Labs and Meds 01/22/25 03:41 01/22/25 03:41 Lab results: Cardiac Enzymes 01/21/25 01/22/25 01/22/25 Range/Units 16:04 03:41 05:13 AST 25 22 (14-36) U/L Troponin I 0.012 0.032 (0.000-0.034) ng/mL 01/22/25 Range/Units 10:54 AST (14-36) U/L Troponin I 0.029 (0.000-0.034) ng/mL Coagulation 01/21/25 01/22/25 01/22/25 Range/Units 16:04 05:18 05:18 PT 13.2 (11.1-14.7) Seconds APTT 32.2 Cancelled > 200.0 H* (22.3-36.8) Seconds CBC 01/21/25 01/22/25 Range/Units 16:04 03:41 WBC 6.4 7.7 (4.5-10.0) K/mm3 RBC 5.32 4.90 (4.2-5.4) M/mm3 Hgb 15.3 H 14.2 (12.0-15.0) g/dL Hct 47.2 H 43.5 (37.0-47.0) % Plt Count 93 L 103 L (150-375) k/mm3 Lymph # (Auto) 1.42 1.54 (0.9-3.2) K/mm3 [place] # (Auto) 0.4 0.6 (0.1-0.6) K/mm3 Eos # (Auto) 0.2 0.2 (0-0.3) K/mm3 Baso # (Auto) 0.0 0.1 (0.0-0.1) K/mm3 Comprehensive Metabolic Panel 01/21/25 01/22/25 Range/Units 16:04 03:41 Sodium 137 139 (137-145) mmol/L Potassium 4.4 3.6 (3.4-5.0) mmol/L Chloride 105 108 H (98-107) mmol/L Carbon Dioxide 26 24 (22-30) mmol/L BUN 16 18 H (7-17) mg/dL Creatinine 1.71 H 1.48 H (0.7-1.0) mg/dL Glucose 97 160 H (65-110) mg/dL Calcium 9.9 9.3 (8.4-10.2) mg/dL AST 25 22 (14-36) U/L ALT 19 18 (6-35) U/L Alkaline Phosphatase 137 H 101 (38-126) U/L Total Protein 8.0 6.6 (6.3-8.2) g/dL Albumin 4.4 3.6 (3.5-5.1) g/dL Intake and Output 01/21/25 01/22/25 01/22/25 23:59 07:59 15:59 Intake Total 1999 119.4 240 Balance 1999 119.4 240 Intake: IV 1999 119.4 Heparin Sod/D5w 100 Units/ml 25 119.4 ,000 units In 250 ml @ 1,300 UNITS/HR 13 mls/hr IV CONT . [id number] [facility] Rx#:[id number] Lactated Ringers 1,000 ml @ 999 2000 mls/hr IV CONT .Q1H1M [facility] Rx#: [id number] Oral 240 Other: Number of Bowel Movements Today 1 Patient Weight 01/22/25 23:59 Weight 80.5 kg
[2025-01-22 14:16] LABS: Partial Thromboplastin Time > 200.0 Seconds (22.3-36.8)
[2025-01-22] MEDS: CEPHALEXIN 500 MG CAPSULE PO (21:51)
[2025-01-22 21:55] LABS: Partial Thromboplastin Time > 200.0 Seconds (22.3-36.8)
[2025-01-22] MEDS: HEPARIN SOD/D5W 100 UNITS/ML 25,000 UNITS/250 ML BAG 7 UNITS IV CONT (22:55)
[2025-01-23] VITALS (20 sets, daily range): BP systolic 112–141; BP diastolic 69–92; PULSE 46–92; RESP 16–20; TEMP 36.3–36.7; O2SAT 97–100
--- NOTE | 2025-01-23 | ECHO_ITS ---
Patient Info Name: Fabby Black Age: 69 years : 1955 Gender: Female Ht: 68 in Wt: 186 lbs BSA: 2.03 m2 HR: 52 bpm BP: 127 / 77 mmHg Technical Quality: Good Exam Date: 01/23/2025 9:36 AM Patient Status: I Admit Date: 01/21/2025 Exam Type: CA echo doppler color flow Complete two-dimensional, color flow and Doppler transthoracic echocardiogram is performed. Staff Referring Physician: Cachorro Bradford Spinning Machine Operator: Josselyn Nguyen Attending Provider: Patrick Vail Summary 1. Complete two-dimensional, color flow and Doppler transthoracic echocardiogram is performed. 2. The left ventricle is normal in size and systolic function. The left ventricular ejection fraction is visually estimated to be 60-65%. There are no regional wall motion abnormalities. 3. The right ventricle is normal in size and systolic function. 4. Color Doppler suggests a possible PFO. 5. Pulmonary arterial systolic pressure is estimated at 34 mmHg. Left Ventricle The left ventricle is normal in size and systolic function. The left ventricular ejection fraction is visually estimated to be 60-65%. There are no regional wall motion abnormalities. Right Ventricle The right ventricle is normal in size and systolic function. Left Atria The left atrium is normal size. Right Atria The right atrium is normal size. Atrial Septum Color Doppler suggests a possible PFO. Aortic Valve The aortic valve is normal. There is no aortic regurgitation. Pulmonic Valve The pulmonic valve is grossly normal. There is moderate pulmonic valve regurgitation. Mitral Valve The mitral valve leaflets are thickened but opens well. There is trace mitral regurgitation. Tricuspid Valve The tricuspid valve is normal. There is trace tricuspid regurgitation. Pulmonary Arteries Pulmonary arterial systolic pressure is estimated at 34 mmHg. Pericardium/Pleural Pericardium is normal in appearance with no evidence for significant pericardial effusion. Inferior Vena Cava Normal inferior vena cava with <50% collapse upon inspiration consistent with elevated right atrial pressure, 8 mmHg. Aorta The aortic root at the level of the sinus of Valsalva measures 2.7 cm in diameter. Left Ventricular Outflow Tract Name Value Normal LVOT 2D LVOT Diameter 1.7 cm LVOT Doppler LVOT Peak Velocity 140 cm/s LVOT Peak Gradient 8 mmHg LVOT Mean Gradient 5 mmHg LVOT VTI 33 cm LVOT VTI/AV VTI Ratio 0.8 LVOT Stroke Volume 72 ml LVOT CO 13.3 l/min LVOT CI 6.6 l/min/m2 Pulmonic Valve Name Value Normal PV Doppler PV Peak Velocity 88 cm/s PV Peak Gradient 3 mmHg Mitral Valve Name Value Normal MV Diastolic Function MV E Peak Velocity 94 cm/s MV A Peak Velocity 139 cm/s MV E/A 0.7 MV Decel Time (PW) 288 ms MV Annular TDI MV E/e' (Septal) 13.0 MV E/e' (Lateral) 11.2 MV E/e' (Average) 12.1 Tricuspid Valve Name Value Normal TV Regurgitation Doppler TR Peak Velocity 254 cm/s TR Peak Gradient 26 mmHg Estimated PAP/RSVP RA Pressure 8 mmHg <=5 PA Systolic Pressure 34 mmHg <36 RV Systolic Pressure 34 mmHg <36 TV Annular TDI TV Lateral Nereida s' Velocity 13.3 cm/s >=9.5 Aorta Name Value Normal Ascending Aorta Ao Root Diameter (MM) 3.0 cm Ao Root Diam Index (MM) 1.5 cm/m2 Aortic Valve Name Value Normal AV Doppler AV Peak Velocity 183 cm/s AV Peak Gradient 13 mmHg AV Mean Gradient 8 mmHg AV VTI 40 cm AV Area (Cont Eq VTI) 1.8 cm2 >=3.0 AV Area (Cont Eq Andrae) 1.7 cm2 AV DI (Andrae) 0.77 AV Regurgitation 2D LVOT Area 2.2 cm2 Ventricles Name Value Normal LV Dimensions 2D/MM IVS Diastolic Thickness (2D) 1.1 cm 0.6-1.0 LVID Diastole (2D) 4.7 cm 3.8-5.2 LVIW Diastolic Thickness (2D) 1.0 cm 0.6-0.9 LVID Systole (2D) 2.9 cm 2.2-3.5 LVOT Diameter 1.7 cm LV Mass (2D Cubed) 174.37 g 67.00-162.00 LV Mass Index (2D Cubed) 86 g/m2 43-95 Relative Wall Thickness (2D) 0.43 <=0.42 LV Fractional Shortening/Ejection Fraction 2D/MM LV Fractional Shortening (2D) 38 % 27-45 LV EF (2D Teichholz) 69 % LV Diastolic Volume (4C MOD) 103 ml LV EF (4C MOD) 64 % LV Diastolic Volume (2C MOD) 84 ml LV EF (2C MOD) 65 % LV Diastolic Volume (BP MOD) 94 ml 46-106 LV Diastolic Volume Index (BP MOD) 46 ml/m2 29-61 LV Systolic Volume (BP MOD) 34 ml 14-42 LV Systolic Volume Index (BP MOD) 17 ml/m2 8-24 LV EF (BP MOD) 63 % 54-74 LV Diastolic Length (4C) 8.0 cm LV Systolic Length (4C) 7.1 cm LV Stroke Volume (4C MOD) 66 ml RV Dimensions 2D/MM RVID Diastole (2D) 4.0 cm 2.1-3.5 Atria Name Value Normal LA Dimensions LA Dimension (MM) 3.6 cm 2.7-3.8 LA Volume (4C A-L) 56 ml LA Volume (BP A-L) 59 ml RA Dimensions RA Systolic Major Theodosia Length (4C) 5.3 cm 2.2-2.8 RA Area (4C) 21.1 cm2 <=18.0 Report Signatures
[2025-01-23 05:53] LABS: Hematocrit 44.0 % (37.0-47.0); Hemoglobin 14.0 g/dL (12.0-15.0); Immature Granulocyte Percent A 0.2 % (0-0.5); Immature Platelet Fraction Pct 19.0 % (0.9-11.2); Lymphocytes Absolute Auto 1.46 K/mm3 (0.9-3.2); Mean Corpuscular HGB Conc 31.8 g/dl (32-36); Mean Corpuscular Hemoglobin 29.3 pg (26-34); Mean Corpuscular Volume 92.1 fl (80-100); Nucleated Red Blood Cells Absolute Auto 0.000 K/mm3 (0.0-0.012); Nucleated Red Blood Cells Perc 0.0 % (0.0-0.2); Platelet Count Result 60 k/mm3 (150-375); Red Blood Count 4.78 M/mm3 (4.2-5.4); White Blood Count 5.4 K/mm3 (4.5-10.0)
[2025-01-23 06:05] LABS: Partial Thromboplastin Time 144.0 Seconds (22.3-36.8)
[2025-01-23 06:20] LABS: Anion Gap 7 mmol/L (4-12); Blood Urea Nitrogen 24 mg/dL (7-17); Calcium 9.1 mg/dL (8.4-10.2); Carbon Dioxide 27 mmol/L (22-30); Chloride 106 mmol/L (98-107); Estimated CRCL calculation 34 ml/min; Estimated Glomerular Filt Rate 32; Glucose 86 mg/dL (65-110); Potassium 4.2 mmol/L (3.4-5.0); Sodium 140 mmol/L (137-145)
[2025-01-23] MEDS: LACTATED RINGERS 1,000 ML 75 ML IV CONT (08:29)
[2025-01-23] MEDS: CEPHALEXIN 500 MG CAPSULE PO ×2 (08:30→20:43)
[2025-01-23] MEDS: ATORVASTATIN 20 MG TABLET PO (08:31)
[2025-01-23 13:19] LABS: Hematocrit 51.0 % (37.0-47.0); Hemoglobin 15.2 g/dL (12.0-15.0); Mean Corpuscular HGB Conc 29.8 g/dl (32-36); Mean Corpuscular Hemoglobin 28.8 pg (26-34); Mean Corpuscular Volume 96.8 fl (80-100); Platelet Count Result 83 k/mm3 (150-375); Red Blood Count 5.27 M/mm3 (4.2-5.4); White Blood Count 9.6 K/mm3 (4.5-10.0)
[2025-01-23 13:30] LABS: Partial Thromboplastin Time 23.6 Seconds (22.3-36.8)
--- NOTE | 2025-01-23 13:38 | P.PNIM_ITS ---
Progress Note: A&P Assessment and Plan (1) Pulmonary embolism: Code(s): I26.99 - Other pulmonary embolism without acute cor pulmonale Status: Acute Assessment and Plan: -Chest CTA shows Acute right upper lobe segmental and right middle lobe segmental and right interlobar artery emboli. Moderate clot burden. Original report reported evidence of right heart strain, but upon discussion with on-call radiologist this should read NO evidence of right heart strain. - troponin trend negative. BNP minimally elevated. - patient is asymptomatic with no chest pain or shortness of breath. - echo 01/23 with EF 60%, normal RV function - discussed with cardiology, ok to transition to Eliquis. No plans for intervention. -monitor platelet -monitor H&H - hematology/oncology consulted (2) Iliac vein thrombosis, right: Code(s): I82.421 - Acute embolism and thrombosis of right iliac vein Status: Acute Assessment and Plan: - as seen on CTA - s/p heparin gtt - started Eliquis (3) DARIN (acute kidney injury): Code(s): N17.9 - Acute kidney failure, unspecified Status: Acute Assessment and Plan: - Cr 1.7 on admission. Received IV fluids. Trended down to 1.4 then back up to 1.6 - may have CKD? 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 b.i.d. -Continue amlodipine 10 mg p.o. q.d. (6) Renal lesion: Code(s): N28.9 - Disorder of kidney and ureter, unspecified Status: Acute Assessment and Plan: - CT A/P on admission showed indeterminate lesion in the midpole of the right kidney - recommend outpatient MRI for further characterization (7) Thrombocytopenia: Code(s): D69.6 - Thrombocytopenia, unspecified Status: Acute Assessment and Plan: -Plts fluctuating, stable this afternoon - monitor CBC (8) Urinary tract infection: Code(s): N39.0 - Urinary tract infection, site not specified Status: Inactive Assessment and Plan: - UA 1+ LE, 11-20 RBCs - recently diagnosed UTI 01/14. Urine culture with E coli sensitive to cephalosporins. Patient has 3 days of Keflex left per daughter, will order. (9) Generalized weakness: Code(s): R53.1 - Weakness Status: Acute Assessment and Plan: - PT/OT consulted - daughter interested in SNF if patient qualifies (10) Dementia: Code(s): F03.90 - Unspecified dementia, unspecified severity, without behavioral disturbance, psychotic disturbance, mood disturbance, and anxiety Status: Acute Assessment and Plan: - has appointment with neurology next month - daughter states patient's memory is getting progressively worse - delirium precautions Plan Code status: Full code DVT prophylaxis: Eliqupurvi Subjective Date/time seen: 01/23/25 13:38 Interval history: Patient seen and examined at bedside. Pleasant this AM, no acute complaints. Review of Systems Review of Systems: All systems reviewed & are unremarkable except as noted in HPI and below Exam Narrative: General: NAD Eyes: EOMI ENT: neck supple Cardiovascular: Regular rate and rhythm Respiratory: Clear to auscultation, respirations even and unlabored on RA Gastrointestinal: Soft, non tender Genitourinary: no suprapubic tenderness Musculoskeletal: No edema. Skin: warm, dry Neuro: Alert. Psych: Mood appropriate Objective Data Vital Signs Vital Signs: Vital Signs - 24 hr 01/22/25 14:00 01/22/25 16:00 01/22/25 16:00 Temperature 98.4 F Pulse Rate 57 L 55 L Respiratory Rate 28 H Blood Pressure 125/66 Pulse Oximetry 100 100 Oxygen Delivery Room Air Fraction of Inspired Oxygen 01/22/25 16:00 01/22/25 18:00 01/22/25 19:48 Temperature 98.2 F Pulse Rate 54 L 62 57 L Respiratory Rate 22 H Blood Pressure 132/79 Pulse Oximetry 100 Oxygen Delivery Fraction of Inspired Oxygen 01/22/25 20:00 01/22/25 20:00 01/22/25 20:27 Temperature Pulse Rate 53 L 80 Respiratory Rate 20 Blood Pressure Pulse Oximetry 97 97 Oxygen Delivery Room Air Room Air Fraction of Inspired Oxygen 21 01/22/25 21:51 01/22/25 22:00 01/23/25 00:00 Temperature Pulse Rate 62 50 L Respiratory Rate Blood Pressure Pulse Oximetry 100 Oxygen Delivery Room Air Fraction of Inspired Oxygen 01/23/25 00:00 01/23/25 00:02 01/23/25 04:00 Temperature 97.8 F Pulse Rate 46 L 50 L Respiratory Rate 16 Blood Pressure 112/74 Pulse Oximetry 100 100 Oxygen Delivery Room Air Fraction of Inspired Oxygen 01/23/25 04:00 01/23/25 04:35 01/23/25 06:00 Temperature 98.0 F Pulse Rate 47 L 53 L 51 L Respiratory Rate 17 Blood Pressure 127/77 Pulse Oximetry 99 Oxygen Delivery Fraction of Inspired Oxygen 01/23/25 07:59 01/23/25 08:00 01/23/25 08:00 Temperature 97.3 F L Pulse Rate 56 L 68 Respiratory Rate 18 Blood Pressure 141/92 H Pulse Oximetry 100 98 Oxygen Delivery Room Air Fraction of Inspired Oxygen 01/23/25 10:00 01/23/25 10:41 01/23/25 12:00 Temperature Pulse Rate 52 L Respiratory Rate Blood Pressure Pulse Oximetry 97 Oxygen Delivery Room Air Room Air Fraction of Inspired Oxygen 01/23/25 12:00 01/23/25 12:10 Temperature 98.0 F Pulse Rate 57 L 62 Respiratory Rate 20 Blood Pressure 113/75 Pulse Oximetry 100 Oxygen Delivery Fraction of Inspired Oxygen Intake/Output Intake/Output: Intake & Output 01/20/25 01/21/25 01/22/25 01/23/25 23:59 23:59 23:59 23:59 Intake Total 1999 1050.0 421.5 Output Total 500 100 Balance 1999 550.0 321.5 Meds/Results Medications: Active Medications Generic Name Dose Route Start Last Admin Trade Name Freq PRN Reason Stop Dose Admin Acetaminophen 650 mg 01/21/25 20:53 Acetaminophen 325 Mg Tablet PO Q4H PRN Mild Pain (1-3) or Fever Amlodipine Besylate 10 mg 01/22/25 09:00 01/23/25 08:30 Amlodipine Besylate 10 Mg Tablet PO 10 mg DAILY JOVAN Administration Atorvastatin Calcium 20 mg 01/22/25 09:00 01/23/25 08:31 Atorvastatin 20 Mg Tablet PO 20 mg DAILY JOVAN Administration Carvedilol 12.5 mg 01/22/25 09:00 01/23/25 10:25 Carvedilol 12.5 Mg Tablet PO Not Given Q12HR JOVAN Cephalexin HCl 500 mg 01/22/25 21:00 01/23/25 08:30 Cephalexin 500 Mg Capsule PO 01/25/25 09:01 500 mg Q12HR JOVAN Administration Heparin Sodium (Porcine) 6,000 units 01/21/25 20:36 Heparin Sodium 5,000 Units/Ml Vial IV PUSH PRN PRN aPTT less than 55 seconds Heparin Sodium (Porcine) 3,000 units 01/21/25 20:36 Heparin Sodium 5,000 Units/Ml Vial IV PUSH PRN PRN aPTT 55 - 70 seconds Heparin Sodium/Dextrose 25,000 units in 250 mls @ 5 mls/hr 01/21/25 20:40 01/23/25 07:16 Heparin Sodium/D5w 100 Units/Ml IV CONT 500 units/hr .Q24H JOVAN 5 mls/hr Titration Protocol 500 UNITS/HR Lactated Ringer's 1,000 mls @ 75 mls/hr 01/23/25 08:05 08/11/25 08:29 Lr - Lactated Ringers Iv IV CONT 01/23/25 18:00 75 mls/hr .[id number] JVOAN Administration Ondansetron HCl 4 mg 01/21/25 20:53 Ondansetron Inj 4 Mg/2 Ml Vial IV PUSH Q4H PRN Nausea Perflutren Lipid Microsphere 0 ml 01/21/25 20:56 Perflutren Lipid Microspheres 1.5 Ml Vial Diluted To 10 Ml Total Volume IV PUSH 01/24/25 20:56 ONCE PRN adequate visualization Protocol Radiology Results: ITS Impressions Abdomen/Pelvis CT 01/21/25 17:15 IMPRESSION: Mild esophagitis/gastritis. Indeterminate density 1.6 cm right midpole renal lesion. Recommend timely outpatient MRI or CT without and with contrast for further characterization. Minimal dilation of the appendix with wall hyperemia, no inflammatory changes, these findings may be normal for this patient or represent early acute appendicitis in the appropriate clinical context. Filling defect in the right external iliac vein concerning for venous thrombosis. Low density in the superior portion of the inferior vena cava may represent a column of unenhanced venous blood or an additional site of thrombosis. Mild wall thickening of the urinary bladder may represent thickening from incomplete distention or cystitis. ADDENDUM: 01/21/25 1909 The FINDINGS and IMPRESSION sections contain a voice recognition error relative to the sidedness of the iliac vein thrombosis. The thrombus is present in the right INTERNAL iliac vein. This addendum was discussed with Dr. Bradford at 7:05 PM on 01/21/2025. Venous Doppler Study 01/21/25 18:59 IMPRESSION: Patent right lower extremity veins. No evidence of deep venous thrombosis. Chest/Abdomen/Pelvis CTA 01/21/25 19:52 IMPRESSION: Acute right upper lobe segmental and right middle lobe segmental and right interlobar artery emboli. Moderate clot burden. Evidence of right heart strain. Patchy enhancement versus artifact in the left ventricular muscle, artifact is favored. Correlate with EKG and cardiac enzymes. Masslike enlargement of the right thyroid gland, consider thyroid ultrasound for further evaluation. Scattered sub-6 mm pulmonary nodules, which require no additional evaluation unless patient is at high risk in which case consider an optional CT in one year. Limited CT venogram of the abdomen and pelvis. The IVC is flattened, without visualized filling defect indicating the prior findings in the IVC were likely artifactual. Redemonstration of the right internal iliac vein thrombosis. Unchanged indeterminate lesion in the right kidney. Unchanged mild dilation and wall hyperemia in the appendix. Unchanged mild esophagitis/gastritis. The bladder is now fully distended without evidence of wall thickening or inflammatory change. Results reported telephonically to Dr. Bradford by Dr. Villatoro at 8:12 PM on 01/21/2025. ADDENDUM: 01/22/25 0912 CORRECTION: There is a likely dictation error in the impression stating evidence of right heart strain. On review of the images there is no flattening or leftward bowing of the ventricular septum to suggest right heart strain. Labs Labs: Laboratory Results - last 24 hr 01/22/25 01/22/25 01/23/25 13:42 21:15 05:18 WBC 5.4 RBC 4.78 Hgb 14.0 Hct 44.0 MCV 92.1 MCH 29.3 MCHC 31.8 L RDW 13.4 Plt Count 60 L MPV 13.5 H Immature Gran % (Auto) 0.2 Neut % (Auto) 60.3 Lymph % (Auto) 26.8 Quay % (Auto) 8.1 Eos % (Auto) 4.0 Baso % (Auto) 0.6 Lymph # (Auto) 1.46 Quay # (Auto) 0.4 Eos # (Auto) 0.2 Baso # (Auto) 0.0 Abs Immat Gran (auto) 0.01 Absolute Neuts (auto) 3.3 Absolute Nucleated RBC 0.000 Nucleated RBC % 0.0 % Immature Plt Fraction 19.0 H APTT > 200.0 H* > 200.0 H* 144.0 H Sodium 140 Potassium 4.2 Chloride 106 Carbon Dioxide 27 Anion Gap 7 BUN 24 H Creatinine 1.61 H Estim Creat Clear Calc 34 Estimated GFR 32 L Glucose 86 Calcium 9.1 01/23/25 13:14 WBC 9.6 RBC 5.27 Hgb 15.2 H Hct 51.0 H MCV 96.8 D MCH 28.8 MCHC 29.8 L RDW 13.4 Plt Count 83 L MPV 12.4 H Immature Gran % (Auto) Neut % (Auto) Lymph % (Auto) Quay % (Auto) Eos % (Auto) Baso % (Auto) Lymph # (Auto) Quay # (Auto) Eos # (Auto) Baso # (Auto) Abs Immat Gran (auto) Absolute Neuts (auto) Absolute Nucleated RBC Nucleated RBC % % Immature Plt Fraction APTT 23.6 Sodium Potassium Chloride Carbon Dioxide Anion Gap BUN Creatinine Estim Creat Clear Calc Estimated GFR Glucose Calcium Quality VTE Prophylaxis VTE prophylaxis: pharmacologic ordered
[2025-01-23] MEDS: APIXABAN 5 MG TABLET 10 MG PO (13:59)
--- NOTE | 2025-01-23 19:02 | P.CONONC_ITS ---
Assessment and Plan Assessment and plan (1) Pulmonary embolism: Code(s): I26.99 - Other pulmonary embolism without acute cor pulmonale Status: Acute Assessment and Plan: Unprovoked hypercoagulable state. Patient came into the hospital with weakness in the lower abdominal discomfort. She has no previous history of malignancy and thrombosis. There is no family history of blood clots as well. CTA she chest was performed that showed right upper lobe segmental and right middle lobe segmental and right interlobar artery emboli with moderate clot burden. Bilateral lower extremity Doppler study showed no evidence of DVT. CT abdomen and pelvis also showed thrombosis in the right internal iliac vein. She was started on heparin. Plan is to discharge home on Eliquis. I will perform hypercoagulable workup after resolution of PE and iliac vein thrombosis. We will repeat imaging studies in 2-3 months. I have answered all the questions to patient satisfaction. (2) Thrombocytopenia: Code(s): D69.6 - Thrombocytopenia, unspecified Status: Acute Assessment and Plan: CT scan showed no evidence of hepatosplenomegaly. There was possible cystitis with mild wall thickening of the urinary bladder. Platelet count was [address] now down to 83,000. This could be secondary to infection/inflammation/UTI versus possibility of autoimmune thrombocytopenia or hit. We will order platelet antibodies for ITP and hit as well. HPI Data of Consult Date/Time: 01/23/25 19:02 Requesting Physician: Patrick Vail MD Primary Care Provider: PHYSICIAN NOT ON STAFF Consult Narrative Narrative: Fabby Black is a 69 year old female without any previous history of thrombosis and hypercoagulable state came into the hospital with abdominal discomfort. She was diagnosed with UTI previously and was discharged home on Keflex. On arrival to the hospital she was feeling quite weak. CT abdomen pelvis was performed that showed right external iliac vein thrombosis. CTA abdomen and pelvis was also done that showed pulmonary embolism with possible right heart strain and redemonstration of right internal iliac thrombosis. Doppler study showed no evidence of DVT in the lower extremities. She denies any recent injury and trauma. Denies any recent surgery. There is no family history of blood clots. Patient was started on heparin drip. Denies any other new complaints Review of Systems 2 Review of Systems: Twelve point review of system was reviewed [facility] Social History Social History Smoking status: Former smoker Tobacco type: cigarettes Alcohol intake: never Substance use: never Lack of Transportation: No Lack of Food: Never True Current Housing: I Have Housing Concerned About Future Housing: No Difficulty Paying Gas/Electric Bills: No Difficulty Paying for Meds: No Currently Unemployed: No Education: High School Diploma/GED Difficulty w/ Childcare or Family Care: No Spiritual care concerns: No (Roman Catholic) Meds Home Medications and Allergies Home Medications ?Medication ?Instructions ?Recorded ?Confirmed ?Type amlodipine 10 mg tablet 10 mg PO DAILY 01/22/25 01/22/25 History atorvastatin 20 mg tablet 20 mg PO DAILY 01/22/25 01/22/25 History carvedilol 12.5 mg tablet 12.5 mg PO BID 01/22/25 01/22/25 History dapagliflozin propanediol 10 mg 10 mg PO DAILY 01/22/25 01/22/25 History tablet (Farxiga) Allergies Allergy/AdvReac Type Severity Reaction Status Date / Time No Known Allergies Allergy Verified 01/21/25 14:15 Vital Signs Vital Signs - 24 hr 01/22/25 19:48 01/22/25 20:00 01/22/25 20:00 Temperature 36.8 C Pulse Rate 57 L 53 L Respiratory Rate 22 H Blood Pressure 132/79 Pulse Oximetry 100 97 Oxygen Delivery Room Air Fraction of Inspired Oxygen 01/22/25 20:27 01/22/25 21:51 01/22/25 22:00 Temperature Pulse Rate 80 62 50 L Respiratory Rate 20 Blood Pressure Pulse Oximetry 97 Oxygen Delivery Room Air Fraction of Inspired Oxygen 21 01/23/25 00:00 01/23/25 00:00 01/23/25 00:02 Temperature 36.6 C Pulse Rate 46 L 50 L Respiratory Rate 16 Blood Pressure 112/74 Pulse Oximetry 100 100 Oxygen Delivery Room Air Fraction of Inspired Oxygen 01/23/25 04:00 01/23/25 04:00 01/23/25 04:35 Temperature 36.7 C Pulse Rate 47 L 53 L Respiratory Rate 17 Blood Pressure 127/77 Pulse Oximetry 100 99 Oxygen Delivery Room Air Fraction of Inspired Oxygen 01/23/25 06:00 01/23/25 07:59 01/23/25 08:00 Temperature 36.3 C L Pulse Rate 51 L 56 L Respiratory Rate 18 Blood Pressure 141/92 H Pulse Oximetry 100 98 Oxygen Delivery Room Air Fraction of Inspired Oxygen 01/23/25 08:00 01/23/25 10:00 01/23/25 10:41 Temperature Pulse Rate 68 52 L Respiratory Rate Blood Pressure Pulse Oximetry Oxygen Delivery Room Air Fraction of Inspired Oxygen 01/23/25 12:00 01/23/25 12:00 01/23/25 12:10 Temperature 36.7 C Pulse Rate 57 L 62 Respiratory Rate 20 Blood Pressure 113/75 Pulse Oximetry 97 100 Oxygen Delivery Room Air Fraction of Inspired Oxygen 01/23/25 14:00 01/23/25 16:00 01/23/25 16:11 Temperature 36.4 C Pulse Rate 92 54 L 56 L Respiratory Rate 18 Blood Pressure 113/69 Pulse Oximetry 100 Oxygen Delivery Fraction of Inspired Oxygen 01/23/25 18:00 Temperature Pulse Rate 60 Respiratory Rate Blood Pressure Pulse Oximetry Oxygen Delivery Fraction of Inspired Oxygen Exam 2 Narrative: Lungs are clear to auscultation bilaterally Cardiovascular regular rate rhythm no murmurs Abdomen soft nontender nondistended bowel sounds are positive Extremities no edema Results Labs 01/23/25 13:14 01/23/25 05:18 Labs: Short CBC 01/23/25 01/23/25 Range/Units 05:18 13:14 WBC 5.4 9.6 (4.5-10.0) K/mm3 Hgb 14.0 15.2 H (12.0-15.0) g/dL Hct 44.0 51.0 H (37.0-47.0) % Plt Count 60 L 83 L (150-375) k/mm3 BMP 01/23/25 05:18 Sodium 140 Potassium 4.2 Chloride 106 Carbon Dioxide 27 BUN 24 H Creatinine 1.61 H Glucose 86 Calcium 9.1
[2025-01-24] VITALS (11 sets, daily range): BP systolic 121–133; BP diastolic 73–78; PULSE 52–69; RESP 18; TEMP 36.7–36.9; O2SAT 98–100
[2025-01-24 04:00] LABS: Hematocrit 40.6 % (37.0-47.0); Hemoglobin 13.0 g/dL (12.0-15.0); Immature Granulocyte Percent A 0.3 % (0-0.5); Immature Platelet Fraction Pct 9.3 % (0.9-11.2); Lymphocytes Absolute Auto 0.98 K/mm3 (0.9-3.2); Mean Corpuscular HGB Conc 32.0 g/dl (32-36); Mean Corpuscular Hemoglobin 28.9 pg (26-34); Mean Corpuscular Volume 90.2 fl (80-100); Nucleated Red Blood Cells Absolute Auto 0.000 K/mm3 (0.0-0.012); Nucleated Red Blood Cells Perc 0.0 % (0.0-0.2); Platelet Count Result 76 k/mm3 (150-375); Red Blood Count 4.50 M/mm3 (4.2-5.4); White Blood Count 9.6 K/mm3 (4.5-10.0)
[2025-01-24 04:26] LABS: Anion Gap 4 mmol/L (4-12); Blood Urea Nitrogen 20 mg/dL (7-17); Calcium 9.0 mg/dL (8.4-10.2); Carbon Dioxide 24 mmol/L (22-30); Chloride 107 mmol/L (98-107); Estimated CRCL calculation 39 ml/min; Estimated Glomerular Filt Rate 38; Glucose 88 mg/dL (65-110); Potassium 4.0 mmol/L (3.4-5.0); Sodium 135 mmol/L (137-145)
[2025-01-24] MEDS: ATORVASTATIN 20 MG TABLET PO (08:55)
[2025-01-24] MEDS: APIXABAN 5 MG TABLET 10 MG PO ×2 (08:55→20:12)
[2025-01-24] MEDS: CEPHALEXIN 500 MG CAPSULE PO ×2 (08:55→20:12)
--- NOTE | 2025-01-24 17:05 | P.PNIM_ITS ---
Progress Note: A&P Assessment and Plan (1) Pulmonary embolism: Code(s): I26.99 - Other pulmonary embolism without acute cor pulmonale Status: Acute Assessment and Plan: -Chest CTA shows Acute right upper lobe segmental and right middle lobe segmental and right interlobar artery emboli. Moderate clot burden. Original report reported evidence of right heart strain, but upon discussion with on-call radiologist this should read NO evidence of right heart strain. - troponin trend negative. BNP minimally elevated. - patient is asymptomatic with no chest pain or shortness of breath. - echo 01/23 with EF 60%, normal RV function - discussed with cardiology, ok to transition to Eliquis. No plans for intervention. -monitor platelet -monitor H&H - hematology/oncology consulted - ordered antibodies for HIT and ITP. Ok to discharge tomorrow on Eliquis (2) Iliac vein thrombosis, right: Code(s): I82.421 - Acute embolism and thrombosis of right iliac vein Status: Acute Assessment and Plan: - as seen on CTA - s/p heparin gtt - started Eliquis (3) DARIN (acute kidney injury): Code(s): N17.9 - Acute kidney failure, unspecified Status: Acute Assessment and Plan: - Cr 1.7 on admission. Received IV fluids. 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 b.i.d. -Continue amlodipine 10 mg p.o. q.d. (6) Renal lesion: Code(s): N28.9 - Disorder of kidney and ureter, unspecified Status: Acute Assessment and Plan: - CT A/P on admission showed indeterminate lesion in the midpole of the right kidney - recommend outpatient MRI for further characterization (7) Thrombocytopenia: Code(s): D69.6 - Thrombocytopenia, unspecified Status: Acute Assessment and Plan: -Plts fluctuating, stable this afternoon - monitor CBC (8) Urinary tract infection: Code(s): N39.0 - Urinary tract infection, site not specified Status: Inactive Assessment and Plan: - UA 1+ LE, 11-20 RBCs - recently diagnosed UTI 01/14. Urine culture with E coli sensitive to cephalosporins. Patient has 3 days of Keflex left per daughter, will order. (9) Generalized weakness: Code(s): R53.1 - Weakness Status: Acute Assessment and Plan: - PT/OT consulted, recommended [facility] - daughter interested in SNF if patient qualifies (10) Dementia: Code(s): F03.90 - Unspecified dementia, unspecified severity, without behavioral disturbance, psychotic disturbance, mood disturbance, and anxiety Status: Acute Assessment and Plan: - has appointment with neurology next month - daughter states patient's memory is getting progressively worse - delirium precautions Plan Code status: Full code DVT prophylaxis: Manoj Subjective Date/time seen: 01/24/25 17:05 Interval history: Patient seen and examined at bedside. Pleasant this AM, no acute complaints. Review of Systems Review of Systems: All systems reviewed & are unremarkable except as noted in HPI and below Exam Narrative: General: NAD Eyes: EOMI ENT: neck supple Cardiovascular: Regular rate and rhythm Respiratory: Clear to auscultation, respirations even and unlabored on RA Gastrointestinal: Soft, non tender Genitourinary: no suprapubic tenderness Musculoskeletal: No edema. Skin: warm, dry Neuro: Alert. Psych: Mood appropriate Objective Data Vital Signs Vital Signs: Vital Signs - 24 hr 01/23/25 18:00 01/23/25 19:49 01/23/25 19:51 Temperature Pulse Rate 60 68 68 Respiratory Rate 18 Blood Pressure Pulse Oximetry 100 Oxygen Delivery Room Air 01/23/25 20:43 01/23/25 22:00 01/23/25 23:14 Temperature 97.6 F Pulse Rate 67 72 66 Respiratory Rate 18 Blood Pressure 138/77 Pulse Oximetry 100 Oxygen Delivery 01/23/25 23:17 01/24/25 02:00 01/24/25 04:00 Temperature Pulse Rate 69 69 68 Respiratory Rate 18 Blood Pressure Pulse Oximetry 100 Oxygen Delivery Room Air 01/24/25 04:00 01/24/25 06:00 01/24/25 08:00 Temperature Pulse Rate 68 52 L 66 Respiratory Rate Blood Pressure Pulse Oximetry Oxygen Delivery 01/24/25 08:04 01/24/25 08:55 01/24/25 10:20 Temperature 98.1 F Pulse Rate 62 57 L Respiratory Rate 18 Blood Pressure 121/74 Pulse Oximetry 100 Oxygen Delivery Room Air 01/24/25 14:00 01/24/25 16:00 Temperature 98.2 F Pulse Rate 53 L 56 L Respiratory Rate 18 Blood Pressure 125/73 Pulse Oximetry 99 Oxygen Delivery Intake/Output Intake/Output: Intake & Output 01/21/25 01/22/25 01/23/25 01/24/25 23:59 23:59 23:59 23:59 Intake Total 1999 1050.0 1106.4 460 Output Total 500 925 202 Balance 1999 550.0 181.4 258 Meds/Results Medications: Active Medications Generic Name Dose Route Start Last Admin Trade Name Freq PRN Reason Stop Dose Admin Acetaminophen 650 mg 01/21/25 20:53 Acetaminophen 325 Mg Tablet PO Q4H PRN Mild Pain (1-3) or Fever Amlodipine Besylate 10 mg 01/22/25 09:00 01/24/25 08:55 Amlodipine Besylate 10 Mg Tablet PO 10 mg DAILY JOVAN Administration Apixaban 10 mg 01/23/25 14:00 01/24/25 08:55 Apixaban 5 Mg Tablet PO 01/30/25 09:01 10 mg Q12HR JOVAN Administration Apixaban 5 mg 01/30/25 21:00 Apixaban 5 Mg Tablet PO Q12HR JOVAN Atorvastatin Calcium 20 mg 01/22/25 09:00 01/24/25 08:55 Atorvastatin 20 Mg Tablet PO 20 mg DAILY JOVAN Administration Carvedilol 12.5 mg 01/22/25 09:00 01/24/25 08:55 Carvedilol 12.5 Mg Tablet PO 12.5 mg Q12HR JOVAN Administration Cephalexin HCl 500 mg 01/22/25 21:00 01/24/25 08:55 Cephalexin 500 Mg Capsule PO 01/25/25 09:01 500 mg Q12HR JOVAN Administration Ondansetron HCl 4 mg 01/21/25 20:53 Ondansetron Inj 4 Mg/2 Ml Vial IV PUSH Q4H PRN Nausea Perflutren Lipid Microsphere 0 ml 01/21/25 20:56 Perflutren Lipid Microspheres 1.5 Ml Vial Diluted To 10 Ml Total Volume IV PUSH 01/24/25 20:56 ONCE PRN adequate visualization Protocol Radiology Results: ITS Impressions Abdomen/Pelvis CT 01/21/25 17:15 IMPRESSION: Mild esophagitis/gastritis. Indeterminate density 1.6 cm right midpole renal lesion. Recommend timely outpa tient MRI or CT without and with contrast for further characterization. Minimal dilation of the appendix with wall hyperemia, no inflammatory changes, these findings may be normal for this patient or represent early acute appendicitis in the appropriate clinical context. Filling defect in the right external iliac vein concerning for venous thromb osis. Low density in the superior portion of the inferior vena cava may represent a column of unenhanced venous blood or an additional site of thrombosis. Mild wall thickening of the urinary bladder may represent thickening from incomplete distention or cystitis. ADDENDUM: 01/21/25 0537 The FINDINGS and IMPRESSION sections contain a voice recognition error relative to the sidedness of the iliac vein thrombosis. The thrombus is present in the right INTERNAL iliac vein. This addendum was discussed with Dr. Bradford at 7:05 PM on 01/21/2025. Venous Doppler Study 01/21/25 18:59 IMPRESSION: Patent right lower extremity veins. No evidence of deep venous thrombosis. Chest/Abdomen/Pelvis CTA 01/21/25 19:52 IMPRESSION: Acute right upper lobe segmental and right middle lobe segmental and right interlobar artery emboli. Moderate clot burden. Evidence of right heart strain. Patchy enhancement versus artifact in the left ventricular muscle, artifact is favored. Correlate with EKG and cardiac enzymes. Masslike enlargement of the right thyroid gland, consider thyroid ultrasound for further evaluation. Scattered sub-6 mm pulmonary nodules, which require no additional evaluation unless patient is at high risk in which case consider an optional CT in one year. Limited CT venogram of the abdomen and pelvis. The IVC is flattened, without visualized filling defect indicating the prior findings in the IVC were likely artifactual. Redemonstration of the right internal iliac vein thrombosis. Unchanged indeterminate lesion in the right kidney. Unchanged mild dilation and wall hyperemia in the appendix. Unchanged mild esophagitis/gastritis. The bladder is now fully distended without evidence of wall thickening or inflammatory change. Results reported telephonically to Dr. Bradford by Dr. Villatoro at 8:12 PM on 01/21/2025. ADDENDUM: 01/22/25 0912 CORRECTION: There is a likely dictation error in the impression stating evidence of right heart strain. On review of the images there is no flattening or leftward bowing of the ventricular septum to suggest right heart strain. Labs Labs: Laboratory Results - last 24 hr 01/24/25 03:53 WBC 9.6 RBC 4.50 Hgb 13.0 Hct 40.6 MCV 90.2 D MCH 28.9 MCHC 32.0 RDW 13.2 Plt Count 76 L MPV 12.4 H Immature Gran % (Auto) 0.3 Neut % (Auto) 80.9 H Lymph % (Auto) 10.2 L [place] % (Auto) 6.1 Eos % (Auto) 2.3 Baso % (Auto) 0.2 Lymph # (Auto) 0.98 [place] # (Auto) 0.6 Eos # (Auto) 0.2 Baso # (Auto) 0.0 Abs Immat Gran (auto) 0.03 Absolute Neuts (auto) 7.8 H Absolute Nucleated RBC 0.000 Nucleated RBC % 0.0 % Immature Plt Fraction 9.3 Sodium 135 L Potassium 4.0 Chloride 107 Carbon Dioxide 24 Anion Gap 4 BUN 20 H Creatinine 1.39 H Estim Creat Clear Calc 39 Estimated GFR 38 L Glucose 88 Calcium 9.0 Direct Plt-Bound IgG Ab Cancelled Quality VTE Prophylaxis VTE prophylaxis: pharmacologic ordered
[2025-01-25] VITALS (7 sets, daily range): BP systolic 117–123; BP diastolic 70–71; PULSE 44–69; RESP 16–18; TEMP 36.4–36.6; O2SAT 99–100
[2025-01-25 05:58] LABS: Hematocrit 40.7 % (37.0-47.0); Hemoglobin 13.1 g/dL (12.0-15.0); Immature Granulocyte Percent A 0.4 % (0-0.5); Immature Platelet Fraction Pct 11.5 % (0.9-11.2); Lymphocytes Absolute Auto 1.27 K/mm3 (0.9-3.2); Mean Corpuscular HGB Conc 32.2 g/dl (32-36); Mean Corpuscular Hemoglobin 28.9 pg (26-34); Mean Corpuscular Volume 89.6 fl (80-100); Nucleated Red Blood Cells Absolute Auto 0.000 K/mm3 (0.0-0.012); Nucleated Red Blood Cells Perc 0.0 % (0.0-0.2); Platelet Count Result 80 k/mm3 (150-375); Red Blood Count 4.54 M/mm3 (4.2-5.4); White Blood Count 7.8 K/mm3 (4.5-10.0)
[2025-01-25 06:14] LABS: Anion Gap 4 mmol/L (4-12); Blood Urea Nitrogen 20 mg/dL (7-17); Calcium 9.2 mg/dL (8.4-10.2); Carbon Dioxide 24 mmol/L (22-30); Chloride 108 mmol/L (98-107); Estimated CRCL calculation 32 ml/min; Estimated Glomerular Filt Rate 35; Glucose 91 mg/dL (65-110); Potassium 4.0 mmol/L (3.4-5.0); Sodium 136 mmol/L (137-145)
[2025-01-25] MEDS: CEPHALEXIN 500 MG CAPSULE PO (10:07)
[2025-01-25] MEDS: ATORVASTATIN 20 MG TABLET PO (10:08)
[2025-01-25] MEDS: APIXABAN 5 MG TABLET 10 MG PO (10:12)
--- NOTE | 2025-01-25 14:19 | P.DS_ITS ---
DS: Admitting Diagnosis Discharge Date 01/25/2025 Admitting Diagnosis Hypercoagulable state/Iliac vein thrombosis, right/Pulmonary embolism DS: Discharge Diagnosis Discharge Diagnosis (1) Pulmonary embolism: Code(s): I26.99 - Other pulmonary embolism without acute cor pulmonale Status: Acute (2) Iliac vein thrombosis, right: Code(s): I82.421 - Acute embolism and thrombosis of right iliac vein Status: Acute (3) DARIN (acute kidney injury): Code(s): N17.9 - Acute kidney failure, unspecified Status: Acute (4) Enlarged thyroid gland: Code(s): E04.9 - Nontoxic goiter, unspecified Status: Acute (5) HTN (hypertension): Code(s): I10 - Essential (primary) hypertension Status: Acute (6) Renal lesion: Code(s): N28.9 - Disorder of kidney and ureter, unspecified Status: Acute (7) Thrombocytopenia: Code(s): D69.6 - Thrombocytopenia, unspecified Status: Acute (8) Urinary tract infection: Code(s): N39.0 - Urinary tract infection, site not specified Status: Inactive (9) Generalized weakness: Code(s): R53.1 - Weakness Status: Acute (10) Dementia: Code(s): F03.90 - Unspecified dementia, unspecified severity, without behavioral disturbance, psychotic disturbance, mood disturbance, and anxiety Status: Acute DS: Summary Hospital Course Reason for hospitalization: Hypercoagulable state/Iliac vein thrombosis, right/Pulmonary embolism Hospital Course: Admission: Patient was a 69-year-old female with no significant past medical history presented to the ED due to a weak patient who was previously in the emergency department and was diagnosed with UTI on 2. Patient was discharged with cephalexin 500 mg p.o. b.i.d. for 7 days. Upon discharge from the ED, the family member reported the patient had not recovered and was still feeling weak. Today, an abdominal/pelvis CT was performed, which shows the right external iliac vein concerning venous thrombosis. The patient underwent chest/abdomen/pelvis CTA, which shows pulmonary embolism with possible right heart strain and redemonstration of right internal iliac vein thrombosis. Initially, I recommended that the patient be transferred for pulmonary embolism with possible right heart strain. The ED physician had called [facility], but the transfer was declined. Patient will be admitted in the setting of pulmonary embolism and internal iliac vein thrombosis. Patient is currently on Eliquis. Hematology/oncology will be consulted. Hospital Course: Patient was admitted to the medical/telemetry unit with continued H&H monitoring, Echocardiogram performed showed EF of 60% with normal RV function no right heart strain but did show possible PFO further evaluation outpatient with Cardiology and possible closure if indicated. Patient was initially started on a heparin GTT with consult to Cardiology she was then transitioned to oral Eliquis. CT finding also showed thyroid mass an ultrasound was ordered 4.2 cm TI RADS 4 versus TI RADS 5 right thyroid nodule and adjacent potentially independent 1.5 cm Ti RADS 5 nodule. Would recommend ultrasound guided biopsy of both nodules which could represent separate portions of the same nodule. Spoke with patient's and guardian for follow-up outpatient biopsy for further evaluation TSH was with in normal. During the evaluation patient daughter was present. Patient daughter reported the patient use walker for ambulation. Patient was briefly in the retirement from February 2024 to August 2024. After the discharge from the retirement patient was followed by tax manager cpa/oncologist for thrombocytopenia but no obvious cause was found. heme Onc had been consulted during admission and recommended patient follow-up for imaging in 2-3 months after Eliquis as well as follow-up with Hematology for follow-up testing of hypercoagulable state and Oncology for further evaluation of a thyroid mass and right kidney lesion which they recommended an outpatient MRI for further characterization. patient had mild acute kidney injury upon admission which resolved with receiving IV fluids was tolerating oral hydration unknown at time of discharge. patient was seen and evaluated day of discharge pleasant in no acute distress with no further complaints on room air denied any chest pain or shortness of breath. Patient was discharged home with family with home health services scheduled and provided the information appointments outpatient. Status at Discharge Functional status at discharge: uses cane/walker Overall status at discharge: patient is back to baseline Time Spent with Patient Time attestation: Total time spent providing and/or coordinating discharge services: Time spent: Greater than 30 minutes Exam Narrative: General: NAD Eyes: EOMI ENT: neck supple Cardiovascular: Regular rate and rhythm Respiratory: Clear to auscultation, respirations even and unlabored on RA Gastrointestinal: Soft, non tender Genitourinary: no suprapubic tenderness Musculoskeletal: No edema. Skin: warm, dry Neuro: Alert. Psych: Mood appropriate DS: Data Data Completed and Pending Labs on day of discharge: Labs from last 24 hours 01/25/25 01/25/25 05:26 05:25 WBC 7.8 RBC 4.54 Hgb 13.1 Hct 40.7 MCV 89.6 MCH 28.9 MCHC 32.2 RDW 13.6 Plt Count 80 L MPV 12.9 H Immature Gran % (Auto) 0.4 Neut % (Auto) 70.0 Lymph % (Auto) 16.4 L [place] % (Auto) 9.4 H Eos % (Auto) 3.4 Baso % (Auto) 0.4 Lymph # (Auto) 1.27 [place] # (Auto) 0.7 H Eos # (Auto) 0.3 Baso # (Auto) 0.0 Abs Immat Gran (auto) 0.03 Absolute Neuts (auto) 5.4 Absolute Nucleated RBC 0.000 Nucleated RBC % 0.0 % Immature Plt Fraction 11.5 H Sodium 136 L Potassium 4.0 Chloride 108 H Carbon Dioxide 24 Anion Gap 4 BUN 20 H Creatinine 1.49 H Estim Creat Clear Calc 32 Estimated GFR 35 L Glucose 91 Calcium 9.2 Preliminary micro results at discharge 01/21/25 16:07 Blood Culture - Preliminary Blood 01/21/25 16:04 Blood Culture - Preliminary Blood Imaging Radiologist's impression: Radiology Results: ITS Impressions Abdomen/Pelvis CT 01/21/25 17:15 IMPRESSION: Mild esophagitis/gastritis. Indeterminate density 1.6 cm right midpole renal lesion. Recommend timely outpatient MRI or CT without and with contrast for further characterization. Minimal dilation of the appendix with wall hyperemia, no inflammatory changes, these findings may be normal for this patient or represent early acute appendicitis in the appropriate clinical context. Filling defect in the right external iliac vein concerning for venous thrombosis. Low density in the superior portion of the inferior vena cava may represent a column of unenhanced venous blood or an additional site of thrombosis. Mild wall thickening of the urinary bladder may represent thickening from incomplete distention or cystitis. ADDENDUM: 01/21/251908 The FINDINGS and IMPRESSION sections contain a voice recognition error relative to the sidedness of the iliac vein thrombosis. The thrombus is present in the right INTERNAL iliac vein. This addendum was discussed with Dr. Bradford at 7:05 PM on 01/21/2025. Venous Doppler Study 01/21/25 18:59 IMPRESSION: Patent right lower extremity veins. No evidence of deep venous thrombosis. Chest/Abdomen/Pelvis CTA 01/21/25 19:52 IMPRESSION: Acute right upper lobe segmental and right middle lobe segmental and right interlobar artery emboli. Moderate clot burden. Evidence of right heart strain. Patchy enhancement versus artifact in the left ventricular muscle, artifact is favored. Correlate with EKG and cardiac enzymes. Masslike enlargement of the right thyroid gland, consider thyroid ultrasound for further evaluation. Scattered sub-6 mm pulmonary nodules, which require no additional evaluation unless patient is at high risk in which case consider an optional CT in one year. Limited CT venogram of the abdomen and pelvis. The IVC is flattened, without visualized filling defect indicating the prior findings in the IVC were likely artifactual. Redemonstration of the right internal iliac vein thrombosis. Unchanged indeterminate lesion in the right kidney. Unchanged mild dilation and wall hyperemia in the appendix. Unchanged mild esophagitis/gastritis. The bladder is now fully distended without evidence of wall thickening or inflammatory change. Results reported telephonically to Dr. Bradford by Dr. Villatoro at 8:12 PM on 01/21/2025. ADDENDUM: 01/22/25 0912 CORRECTION: There is a likely dictation error in the impression stating evidence of right heart strain. On review of the images there is no flattening or leftward bowing of the ventricular septum to suggest right heart strain. Discharge Plan Discharge Attending physician on discharge: Patrick Vail Consulting providers: Cale, Pura; Nicolle Kang; Shaan Noel; Susu Salmeron Kristopher A.; Crispin Colby; Malou Fay Gary M.; Rishi Ricci Discharging Clinician: Alia Caraballo Anticipated Discharge Date/Time: 01/25/25 13:56 Patient Disposition: Home with Home Health Service Activity: may shower Diet: as tolerated Discharge Instructions: 1). Multiple Thrombosis (blood clots/Hypercoagulable state and Thrombocytopenia (low platelets) * I have started you a Eliquis which is a blood thinner you will take loading dose for a total of 7 days 10mg (2 tablets) twice a day and then reduce to 5mg (1 tablet) twice a day. * repeat imaging studies in 2-3 months * Follow-up testing to be performed outpatient with hematology 2). CT Mass * Imaging showed a thyroid nodule your thyroid levels were within normal limits this will need a follow-up imaging outpatient and possible biopsy when able to hold Eliquis for procedure 3). Lesion on right Kidney * Schedule with you primary care physician for an outpatient MRI for further characterization 4). Possible PFO * Need follow-up Echo with bubble study for further evaluation with Cardiology How can you care for yourself at home? ? Keep track of any new symptoms or changes in your symptoms. ? Rest until you feel better. ? Be safe with medicines. Take your medicines exactly as prescribed. Call your doctor if you think you are having a problem with your medicine. ? Do not drive after taking a prescription pain medicine. ? Ensure to follow-up with primary care physician as indicated and provide updated medication list provided to you at discharge. When should you call for help? Call 911 anytime you think you may need emergency care. For example, call if: ? You passed out (lost consciousness). Call your doctor now or seek immediate medical care if: ? You have new symptoms like fever, difficulty breathing, Chest pain, vomiting, or rash. ? You have new or different pain. ? You are confused and are having trouble thinking clearly. ? Your symptoms are getting worse. Watch closely for changes in your health, and be sure to contact your doctor if: ? You do not get better as expected. Patient Instructions: Antibiotic Form, Heart Failure (DC), Pulmonary Embolism (DC), Thrombocytopenia (DC), Blood Thinners (DC), Patent [place] (DC) Patient Language: [place] Stand Alone Forms: General Discharge Information Follow-up/Referrals: Neel Dunne MD [Physician] - Call for Appointment (PFO evaluation) Shaan Nole MD [Physician] - Call for Appointment (Follow-up testing ) PHYSICIAN NOT ON STAFF,NONSTAFF [Primary Care Provider] - Call for Appointment (Follow-up with primary care) Discharge Medications: New Eliquis 5 mg Tablet 5 mg PO Q12HR Qty: 74 0RF Rx Instructions: Take 10mg 2 tablets twice a day for 5 more days or 10 more doses then switch to 5mg 1 tablet twice a day Continued atorvastatin 20 mg tablet 20 mg PO DAILY carvedilol 12.5 mg tablet 12.5 mg PO BID amlodipine 10 mg tablet 10 mg PO DAILY dapagliflozin propanediol [Farxiga] 10 mg tablet 10 mg PO DAILY Date of admission: 01/21/25 20:53 Primary Care Provider: PHYSICIAN NOT ON STAFF,NONSTAFF Admitting Provider: Patrick Vail Attending physician on admission: Alia Caraballo Condition: Stable Quality VTE Prophylaxis VTE prophylaxis: pharmacologic ordered -Patient's previous records reviewed on admission -ER notes reviewed in detail on admission -discussed all findings and current treatment plan with patient/Family/POA -Consultations reviewed for recommendations -Patient's disposition for safe discharge discussed with welfare case worker Dictation performed by [employer] direct speech recognition software, therefore spot billing clerk variants and typographical errors may occur. Hospitalist MIPS Heart Failure (Exclusion) Patient has history of Heart Transplant or Left Ventricular Assistive Device?: No IF YES, STOP HERE Heart Failure (Qualifier) Patient has current or prior documentation of LVEF less than or equal to 40%, or mod/servere depressed LVSF?: No IF NO, STOP HERE
== END 2025-01-25 15:45 | disposition home or self-care (01) | DRG 176 ==
LOC: ANHED 20:37 → ANHIMU 22:41 → ANH2MED 01-24 17:25
PROVIDERS: Internal Medicine Hematology & Oncology; Physician Assistant; Admitting Provider General Practice; Emergency Provider Emergency Medicine; Visit Provider Nurse Practitioner Family
DX: I26.99 Other pulmonary embolism without acute cor pulmonale (principal); I82.421 Acute embolism and thrombosis of right iliac vein; N17.9 Acute kidney failure, unspecified; N39.0 Urinary tract infection, site not specified; E04.9 Nontoxic goiter, unspecified; D69.59 Other secondary thrombocytopenia; N28.9 Disorder of kidney and ureter, unspecified; I10 Essential (primary) hypertension; F03.90 Unspecified dementia, unspecified severity, without behavioral disturbance, psychotic disturbance, mood disturbance, and anxiety; Z87.891 Personal history of nicotine dependence
CPT/HCPCS: 36415; 71275; 74177; 76536; 80048; 80053; 81001; 83036; 83605; 83690; 83880; 84443; 84484; 85025; 85027; 85055; 85380; 85610; 85730; 86022; 86023; 86140; 87040; 87086; 93005; 93306; 93971; 96361; 96374; 96375; 97161; 97165; 99291; A9270; J1644; J7120; Q9967